=== PATIENT | male | born 1965 | race African-American/Black ===

== ENCOUNTER 2017-06-12 06:45 | Emergency (ER) | payer MEDICAID ==
[~2017-06-12] VITALS: Ht 172.7 cm; Wt 77.5 kg
[~2017-06-12 06:45] MED LIST: ALBU18HF2 IH; ASPI-1159 PO; BENA20TA3 PO; CARVEDILOL PO; LASIX PO; PROAIR INH
[2017-06-12] MEDS ORDERED: AZITHROMYCIN 500 MG TABLET PO ONE (10:45)
[2017-06-12] MEDS ORDERED: CEFTRIAXONE SODIUM 250 MG/VIAL IM ONE (10:45)
[2017-06-12 10:47] VITALS: BP 111/67
[2017-06-12 11:07] LABS: CLARITY URINE TURBID (CLEAR); COLOR URINE YELLOW (YELLOW); GLUCOSE URINE NEGATIVE (NEGATIVE); KETONES URINE NEGATIVE (NEGATIVE); LEUKOCYTE ESTERASE URINE 3+ (NEGATIVE); NITRITE URINE NEGATIVE (NEGATIVE); OCCULT BLOOD URINE 1+ (NEGATIVE); PH URINE >=9.0 (4.5-8.0); PROTEIN URINE 2+ (NEGATIVE); SPECIFIC GRAVITY URINE 1.011 (1.005-1.030); UROBILINOGEN URINE 0.2 E.U./dL (0.2-1.0)
== END 2017-06-12 11:48 | disposition home or self-care (01) ==
LOC: ER 09:20
DX: N34.2 Other urethritis (principal); I11.0 Hypertensive heart disease with heart failure; I50.9 Heart failure, unspecified; J45.909 Unspecified asthma, uncomplicated; F12.90 Cannabis use, unspecified, uncomplicated; Z79.82 Long term (current) use of aspirin
CPT/HCPCS: 81001; 87086; 96372; 99284; J0696; Z7610

== ENCOUNTER 2018-02-11 03:35 | Inpatient (IN) | payer MEDICAID ==
[~2018-02-11] VITALS: Ht 172.7 cm; Wt 76.7 kg
[2018-02-11] MEDS ORDERED: ALBUTEROL (0.083%) 2.5MG/3ML NEB HHN STA (03:42)
[2018-02-11] MEDS ORDERED: METHYLPREDNISOLONE SOD SUCC 125 MG/2 ML VIAL IV STA (03:42)
[2018-02-11] MEDS ORDERED: IPRATROPIUM BROMIDE (0.02%) 0.5MG/2.5ML NEB HHN STA (03:42)
[2018-02-11] MEDS ORDERED: SODIUM CHLORIDE 0.9% 1,000 ML IV ONE (03:42)
[2018-02-11] MEDS ORDERED: NITROGLYCERIN OINT 1GM/INCH UDPKT TD ONE (03:45)
[2018-02-11] MEDS ORDERED: MAGNESIUM 2 G PREMIX 50 ML IV ONE (03:45)
[2018-02-11] MEDS ORDERED: AZITHROMYCIN 500 MG in DEXT 5% WATER 250 ML IV ONE (03:45)
[2018-02-11] MEDS ORDERED: CEFTRIAXONE 1 G PREMIX 50 ML IV ONE (03:45)
[2018-02-11] MEDS ORDERED: ASPIRIN 81MG TABLET PO ONE (03:45)
[2018-02-11 04:14] LABS: HEMATOCRIT. 39.8 % (42.0-52.0); HEMOGLOBIN. 13.1 g/dL (14.0-18.0); MEAN CORPUSCULAR HEMOGLOBIN 27.6 pg (28.0-32.0); MEAN CORPUSCULAR VOLUME 83.7 fL (80.0-94.0); MEAN PLATELET VOLUME 8.8 fl (7.4-10.4); PLATELET 250 x1000/uL (130-400); RED BLOOD CELL COUNT 4.75 mill/uL (4.7-6.1); RED CELL DISTRIBUTION WIDTH 16.2 % (11.6-14.6)
[2018-02-11 04:21] LABS: CHLORIDE 109 mEq/L (98-107); INR 1.2; PROTHROMBIN TIME 12.4 sec (9.4-11.6)
[2018-02-11 04:25] LABS: ETHANOL BLOOD < 10 mg/dL
[2018-02-11 04:41] LABS: PLATELET ESTIMATE NORMAL
[2018-02-11] MEDS ORDERED: DIPHENHYDRAMINE 50MG/ML VIAL IV ONE (05:15)
[2018-02-11] MEDS ORDERED: MORPHINE SULFATE 2 MG/ML CPJ (NOT FOR IM USE) IV STA (05:15)
[2018-02-11 05:44] LABS: CLARITY URINE CLEAR (CLEAR); COLOR URINE YELLOW (YELLOW); KETONES URINE NEGATIVE (NEGATIVE); LEUKOCYTE ESTERASE URINE 1+ (NEGATIVE); NITRITE URINE NEGATIVE (NEGATIVE); OCCULT BLOOD URINE NEGATIVE (NEGATIVE); PH URINE 5.5 (4.5-8.0); PROTEIN URINE TRACE (NEGATIVE); SPECIFIC GRAVITY URINE 1.017 (1.005-1.030); UROBILINOGEN URINE 0.2 E.U./dL (0.2-1.0)
[2018-02-11 06:23] LABS: *BENZODIAZEPINES SCREEN URINE NEGATIVE (NEGATIVE); *COCAINE SCREEN URINE PRESUMTIVE POSITIVE (NEGATIVE); METHADONE URINE SCREEN NEGATIVE (NEGATIVE)
[2018-02-11 06:24] LABS: *AMPHETAMINES SCREEN URINE NEGATIVE (NEGATIVE); *BARBITURATES SCREEN URINE NEGATIVE (NEGATIVE); CANNABINOID URINE SCREEN PRESUMTIVE POSITIVE (NEGATIVE); OPIATES URINE SCREEN NEGATIVE (NEGATIVE); PHENCYCLIDINE URINE SCREEN NEGATIVE (NEGATIVE)
[2018-02-11 08:00] VITALS: BP 107/68
[2018-02-11 08:55] VITALS: BP 107/68
[2018-02-11] MEDS ORDERED: MAGNESIUM/ALUMINUM HYDROXIDE/SIMETHICONE 30ML UDC PO PRN (09:00)
[2018-02-11] MEDS ORDERED: KETOROLAC 30MG/ML VIAL IV PRN (09:00)
[2018-02-11] MEDS ORDERED: TRAMADOL 50MG TABLET PO PRN (09:00)
[2018-02-11] MEDS ORDERED: IPRATROPIUM/ALBUTEROL 0.5-3(2.5)MG/3ML NEB INH PRN (09:00)
[2018-02-11] MEDS ORDERED: DOCUSATE SODIUM 100MG CAPSULE PO PRN (09:00)
[2018-02-11] MEDS ORDERED: CLONIDINE 0.1MG TABLET PO PRN (09:00)
[2018-02-11] MEDS ORDERED: ONDANSETRON HCL 4MG/2ML VIAL IV PRN (09:00)
[2018-02-11] MEDS ORDERED: ZINC SULFATE 220 MG ( 50 ) CAPSULE PO SCH (09:00)
[2018-02-11] MEDS ORDERED: NA PHOS,M-B/NA PHOS,DI-BA ENEMA 118ML PR PRN (09:00)
[2018-02-11] MEDS ORDERED: GUAIFENESIN 200MG/10ML SUGAR FREE UDC PO PRN (09:00)
[2018-02-11] MEDS ORDERED: ENOXAPARIN 40MG/0.4ML SYR SUBCUT SCH (09:00)
[2018-02-11] MEDS ORDERED: NITROGLYCERIN 0.4MG TABLET SL SL PRN (09:00)
[2018-02-11] MEDS ORDERED: LORAZEPAM 0.5MG TABLET PO PRN (09:00)
[2018-02-11] MEDS ORDERED: ACETAMINOPHEN 325MG TABLET PO PRN (09:00)
[2018-02-11] MEDS ORDERED: DIPHENHYDRAMINE 50MG/ML VIAL IV PRN (09:00)
[2018-02-11] MEDS ORDERED: LEVOFLOXACIN 500MG PREMIX 100 ML IV SCH (10:00)
[2018-02-11 12:00] VITALS: BP 104/61
[2018-02-11] MEDS: DILTIAZEM HCL 60MG TABLET PO SCH ×2 (12:00→18:00)
[2018-02-11 16:00] VITALS: BP 117/74
[2018-02-11] MEDS: ASCORBIC ACID 500 MG TABLET PO SCH ×2 (16:00→21:45)
[2018-02-11] MEDS: FAMOTIDINE 20MG TABLET PO SCH ×2 (16:00→21:45)
[2018-02-11] MEDS: GUAIFENESIN 600MG ER TABLET PO SCH ×2 (16:00→21:45)
[2018-02-11] MEDS: METHYLPREDNISOLONE SOD SUCC 125 MG/2 ML VIAL IV SCH ×2 (16:01→21:43)
[2018-02-11] MEDS: FUROSEMIDE 40MG/4ML VIAL IV SCH ×2 (16:02→21:43)
[2018-02-11] MEDS ORDERED: FLUT1DIS3 INH (16:33)
[2018-02-11 16:52] LABS: *AMPHETAMINES SCREEN URINE NEGATIVE (NEGATIVE); *BARBITURATES SCREEN URINE NEGATIVE (NEGATIVE); *BENZODIAZEPINES SCREEN URINE NEGATIVE (NEGATIVE); *COCAINE SCREEN URINE PRESUMTIVE POSITIVE (NEGATIVE); METHADONE URINE SCREEN NEGATIVE (NEGATIVE); OPIATES URINE SCREEN PRESUMTIVE POSITIVE (NEGATIVE)
[2018-02-11 16:53] LABS: CANNABINOID URINE SCREEN PRESUMTIVE POSITIVE (NEGATIVE); PHENCYCLIDINE URINE SCREEN NEGATIVE (NEGATIVE)
[2018-02-11 17:04] LABS: CREATINE KINASE MB FRACTION 2.5 ng/mL (0.5-3.6)
[2018-02-11 20:00] VITALS: BP 123/85
[2018-02-11] MEDS ORDERED: ZOLPIDEM TARTRATE 5MG TABLET PO PRN (21:00)
[2018-02-12] VITALS: BP_SYST 123; BP_DIAS 78; BP_DIAS 98
[2018-02-12] MEDS: DILTIAZEM HCL 60MG TABLET PO SCH ×2 (00:42→06:53)
[2018-02-12] MEDS: IPRATROPIUM/ALBUTEROL 0.5-3(2.5)MG/3ML NEB HHN SCH ×3 (00:55→08:15)
[2018-02-12 01:21] LABS: CREATINE KINASE MB FRACTION 3.3 ng/mL (0.5-3.6)
[2018-02-12 04:00] VITALS: BP 132/85
[2018-02-12] MEDS: FUROSEMIDE 40MG/4ML VIAL IV SCH (06:25)
[2018-02-12] MEDS: METHYLPREDNISOLONE SOD SUCC 125 MG/2 ML VIAL IV SCH (06:26)
[2018-02-12 08:00] VITALS: BP 119/81
[2018-02-12 09:05] VITALS: BP 119/81
== END 2018-02-12 09:36 | disposition home or self-care (01) | DRG 133 ==
LOC: ER 03:35 → 7WST 04:39 → ENRESERV 05:07
PROVIDERS: ADMIT Internal Medicine; ATTEND Internal Medicine
DX: J96.00 Acute respiratory failure, unspecified whether with hypoxia or hypercapnia (principal); E43 Unspecified severe protein-calorie malnutrition; I50.43 Acute on chronic combined systolic (congestive) and diastolic (congestive) heart failure; J18.9 Pneumonia, unspecified organism; J44.0 Chronic obstructive pulmonary disease with (acute) lower respiratory infection; I11.0 Hypertensive heart disease with heart failure; J44.1 Chronic obstructive pulmonary disease with (acute) exacerbation; J45.901 Unspecified asthma with (acute) exacerbation; F12.10 Cannabis abuse, uncomplicated; F14.10 Cocaine abuse, uncomplicated; Z82.49 Family history of ischemic heart disease and other diseases of the circulatory system; Z82.5 Family history of asthma and other chronic lower respiratory diseases; Z68.25 Body mass index [BMI] 25.0-25.9, adult
CPT/HCPCS: 36415; 71045; 80053; 80305; 81003; 82550; 82553; 83036; 83605; 83690; 83880; 84484; 85025; 85610; 87040; 87086; 87804; 93005; 93306; 93970; 96365; 96366; 96367; 96375; 99285; G0482; J0456; J1200; J1650; J1940; J1956; J2270; J2930; J3475; J7030; J7050; J7060; J7611; J7620

== ENCOUNTER 2018-05-10 22:58 | Inpatient (IN) | payer MEDICAID ==
[~2018-05-10] VITALS: Ht 185.4 cm; Wt 74.8 kg
[~2018-05-10 22:58] MED LIST changes: +AMLO10TA80 PO; +BENA20TA10 PO; -BENA20TA3 PO; +CARV3.1242 PO; -CARVEDILOL PO; +FLUT1DIS3 INH; +FURO-151 PO; -LASIX PO; +METO25TA6 PO
[2018-05-10] MEDS ORDERED: METHYLPREDNISOLONE SOD SUCC 125 MG/2 ML VIAL IV STA (23:27)
[2018-05-10] MEDS ORDERED: IPRATROPIUM BROMIDE (0.02%) 0.5MG/2.5ML NEB HHN STA (23:27)
[2018-05-10] MEDS ORDERED: FUROSEMIDE 40MG/4ML VIAL IV ONE (23:30)
[2018-05-10] MEDS ORDERED: ALBUTEROL (0.083%) 2.5MG/3ML NEB HHN SCH (23:30)
[2018-05-11 00:57] LABS: BASOPHILS % 0.9 % (0.0-2.0); EOSINOPHILS % 5.4 % (0.0-5.0); HEMATOCRIT. 36.2 % (42.0-52.0); HEMOGLOBIN. 11.8 g/dL (14.0-18.0); MEAN CORPUSCULAR HEMOGLOBIN 27.9 pg (28.0-32.0); MEAN CORPUSCULAR VOLUME 85.4 fL (80.0-94.0); MONOCYTES % 9.7 % (2.0-8.0); PLATELET 257 x1000/uL (130-400); RED BLOOD CELL COUNT 4.23 mill/uL (4.7-6.1); RED CELL DISTRIBUTION WIDTH 16.5 % (11.6-14.6)
[2018-05-11 01:01] LABS: CHLORIDE 119 mEq/L (98-107)
[2018-05-11 01:02] LABS: INR 1.1
[2018-05-11] MEDS ORDERED: POTASSIUM CHLORIDE INJ 40 MEQ in DEXT 5% WATER 250 ML IV NR (03:00)
[2018-05-11] MEDS ORDERED: CALCIUM GLUCONATE 100MG/ML 10ML VIAL IV NR (03:00)
[2018-05-11 05:58] VITALS: BP 125/79
[2018-05-11 06:01] VITALS: BP 125/79
[2018-05-11] MEDS ORDERED: ALBU90AE INH (06:15)
[2018-05-11 08:00] VITALS: BP 134/91
[2018-05-11] MEDS ORDERED: IPRATROPIUM/ALBUTEROL 0.5-3(2.5)MG/3ML NEB INH PRN (09:15)
[2018-05-11] MEDS ORDERED: ONDANSETRON HCL 4MG/2ML VIAL IV PRN (09:15)
[2018-05-11] MEDS ORDERED: POTASSIUM CHLORIDE 20MEQ TABLET SR PO SCH (09:30)
[2018-05-11] MEDS ORDERED: ALBUTEROL 6.7GM HFA INHALER INH PRN (09:30)
[2018-05-11] MEDS ORDERED: FUROSEMIDE 40MG/4ML VIAL IVP SCH (09:30)
[2018-05-11] MEDS ORDERED: POTASSIUM CHLORIDE 20MEQ TABLET SR PO NR (09:30)
[2018-05-11 12:00] VITALS: BP 131/80
[2018-05-11] MEDS: AMLODIPINE 10MG TABLET PO SCH (12:04)
[2018-05-11] MEDS: ASPIRIN 81MG TABLET PO SCH (12:05)
[2018-05-11] MEDS: BENAZEPRIL 20MG TABLET PO SCH (12:11)
[2018-05-11 14:00] VITALS: BP 115/72
[2018-05-11 14:04] LABS: PHOSPHORUS 2.4 mg/dL (2.5-4.9)
[2018-05-11 14:08] LABS: CREATINE KINASE MB FRACTION 3.7 ng/mL (0.5-3.6)
[2018-05-11] MEDS ORDERED: IPRATROPIUM/ALBUTEROL 0.5-3(2.5)MG/3ML NEB HHN PRN (15:00)
[2018-05-11] MEDS: POTASSIUM CHLORIDE 20MEQ TABLET SR PO SCH (16:43)
[2018-05-11] MEDS: FUROSEMIDE 100MG/10ML VIAL IVP SCH (16:47)
[2018-05-11] MEDS: MORPHINE SULFATE 4 MG/ML CPJ (NOT FOR IM USE) IV PRN (19:47)
[2018-05-11 19:59] LABS: CLARITY URINE CLEAR (CLEAR); COLOR URINE YELLOW (YELLOW); KETONES URINE NEGATIVE (NEGATIVE); LEUKOCYTE ESTERASE URINE TRACE (NEGATIVE); NITRITE URINE NEGATIVE (NEGATIVE); OCCULT BLOOD URINE NEGATIVE (NEGATIVE); PH URINE 7.5 (4.5-8.0); PROTEIN URINE NEGATIVE (NEGATIVE); SPECIFIC GRAVITY URINE 1.006 (1.005-1.030); UROBILINOGEN URINE 0.2 E.U./dL (0.2-1.0)
[2018-05-11 20:00] VITALS: BP 119/82
[2018-05-11 20:14] LABS: *AMPHETAMINES SCREEN URINE NEGATIVE (NEGATIVE); *BARBITURATES SCREEN URINE NEGATIVE (NEGATIVE); *BENZODIAZEPINES SCREEN URINE NEGATIVE (NEGATIVE); *COCAINE SCREEN URINE PRESUMTIVE POSITIVE (NEGATIVE); METHADONE URINE SCREEN NEGATIVE (NEGATIVE)
[2018-05-11 20:15] LABS: CANNABINOID URINE SCREEN PRESUMTIVE POSITIVE (NEGATIVE); OPIATES URINE SCREEN NEGATIVE (NEGATIVE); PHENCYCLIDINE URINE SCREEN NEGATIVE (NEGATIVE)
[2018-05-11] MEDS: IPRATROPIUM/ALBUTEROL 0.5-3(2.5)MG/3ML NEB HHN SCH (20:34)
[2018-05-11] MEDS: BUDESONIDE 0.5MG/2ML NEB HHN SCH (20:35)
[2018-05-12] VITALS: BP 121/84
[2018-05-12] MEDS: IPRATROPIUM/ALBUTEROL 0.5-3(2.5)MG/3ML NEB HHN SCH ×3 (01:44→21:30)
[2018-05-12 04:43] VITALS: BP 108/64
[2018-05-12] MEDS: FUROSEMIDE 100MG/10ML VIAL IVP SCH (06:27)
[2018-05-12 07:28] LABS: BASOPHILS % 0.3 % (0.0-2.0); EOSINOPHILS % 0.4 % (0.0-5.0); HEMATOCRIT. 43.2 % (42.0-52.0); HEMOGLOBIN. 14.1 g/dL (14.0-18.0); LYMPHOCYTES % 10.9 % (20.0-50.0); MEAN CORPUSCULAR HEMOGLOBIN 27.7 pg (28.0-32.0); MEAN CORPUSCULAR VOLUME 85.2 fL (80.0-94.0); MEAN PLATELET VOLUME 8.9 fl (7.4-10.4); MONOCYTES % 7.7 % (2.0-8.0); NEUTROPHILS % 80.7 % (40.0-76.0); PLATELET 357 x1000/uL (130-400); RED BLOOD CELL COUNT 5.06 mill/uL (4.7-6.1); RED CELL DISTRIBUTION WIDTH 16.9 % (11.6-14.6)
[2018-05-12 07:44] LABS: FOLIC ACID (FOLATE) SERUM 14.4 ng/mL (>5.38)
[2018-05-12 08:00] VITALS: BP 122/84
[2018-05-12] MEDS: BUDESONIDE 0.5MG/2ML NEB HHN SCH ×2 (08:43→21:30)
[2018-05-12] MEDS: POTASSIUM CHLORIDE 20MEQ TABLET SR PO SCH (08:49)
[2018-05-12] MEDS: AMLODIPINE 10MG TABLET PO SCH (08:49)
[2018-05-12] MEDS: ASPIRIN 81MG TABLET PO SCH (08:49)
[2018-05-12] MEDS: BENAZEPRIL 20MG TABLET PO SCH (08:49)
[2018-05-12] MEDS: MORPHINE SULFATE 4 MG/ML CPJ (NOT FOR IM USE) IV PRN (10:40)
[2018-05-12 12:26] VITALS: BP 100/68
[2018-05-12 15:57] VITALS: BP 106/72
[2018-05-12] MEDS: FUROSEMIDE 40MG/4ML VIAL IVP SCH (16:32)
[2018-05-12 20:00] VITALS: BP 101/72
[2018-05-13 00:10] VITALS: BP 105/68
[2018-05-13] MEDS: MORPHINE SULFATE 4 MG/ML CPJ (NOT FOR IM USE) IV PRN (02:02)
[2018-05-13] MEDS: IPRATROPIUM/ALBUTEROL 0.5-3(2.5)MG/3ML NEB HHN SCH ×2 (03:14→08:26)
[2018-05-13 04:16] VITALS: BP 103/66
[2018-05-13 06:14] LABS: BASOPHILS % 1.1 % (0.0-2.0); EOSINOPHILS % 2.2 % (0.0-5.0); HEMATOCRIT. 45.8 % (42.0-52.0); HEMOGLOBIN. 15.1 g/dL (14.0-18.0); MEAN CORPUSCULAR VOLUME 84.8 fL (80.0-94.0); MEAN PLATELET VOLUME 8.8 fl (7.4-10.4); MONOCYTES % 10.1 % (2.0-8.0); NEUTROPHILS % 61.6 % (40.0-76.0); PLATELET 402 x1000/uL (130-400); RED CELL DISTRIBUTION WIDTH 16.8 % (11.6-14.6)
[2018-05-13 08:00] VITALS: BP 122/73
[2018-05-13] MEDS: BUDESONIDE 0.5MG/2ML NEB HHN SCH (08:25)
[2018-05-13] MEDS ORDERED: BENAZEPRIL 10MG TABLET PO SCH (09:00)
[2018-05-13] MEDS: AMLODIPINE 10MG TABLET PO SCH (09:00)
[2018-05-13] MEDS ORDERED: POTASSIUM CHLORIDE 20MEQ TABLET SR PO SCH (09:00)
[2018-05-13] MEDS: ASPIRIN 81MG TABLET PO SCH (10:51)
[2018-05-13] MEDS: FUROSEMIDE 40MG/4ML VIAL IVP SCH (10:51)
[2018-05-13 12:00] VITALS: BP 110/76
[2018-05-13] MEDS ORDERED: LOT10 PO (12:36)
[2018-05-13 13:56] VITALS: BP 110/76
== END 2018-05-13 14:35 | disposition home or self-care (01) | DRG 194 ==
LOC: ER 22:58 → 7WST 05-11 02:43 → EDBEDREQ 05-11 02:45 → ENRESERV 05-11 03:46
PROVIDERS: ADMIT Internal Medicine; ATTEND Internal Medicine
DX: I13.0 Hypertensive heart and chronic kidney disease with heart failure and stage 1 through stage 4 chronic kidney disease, or unspecified chronic kidney disease (principal); J96.00 Acute respiratory failure, unspecified whether with hypoxia or hypercapnia; E43 Unspecified severe protein-calorie malnutrition; I50.23 Acute on chronic systolic (congestive) heart failure; J44.1 Chronic obstructive pulmonary disease with (acute) exacerbation; E87.6 Hypokalemia; E83.51 Hypocalcemia; E88.09 Other disorders of plasma-protein metabolism, not elsewhere classified; N18.9 Chronic kidney disease, unspecified; D64.9 Anemia, unspecified; F12.90 Cannabis use, unspecified, uncomplicated; I08.0 Rheumatic disorders of both mitral and aortic valves; I42.0 Dilated cardiomyopathy; F14.90 Cocaine use, unspecified, uncomplicated; Z87.891 Personal history of nicotine dependence; Z79.899 Other long term (current) drug therapy; Z79.82 Long term (current) use of aspirin; Z68.21 Body mass index [BMI] 21.0-21.9, adult; Z71.6 Tobacco abuse counseling; Z71.51 Drug abuse counseling and surveillance of drug abuser
CPT/HCPCS: 36415; 71045; 80048; 80053; 80305; 81003; 82550; 82553; 82607; 82728; 82746; 83540; 83550; 83605; 83735; 83880; 84100; 84481; 84484; 85025; 85610; 85730; 87040; 93005; 93970; 94640; 96365; 96375; 99285; J0610; J1940; J2270; J2930; J3480; J7040; J7060; J7611; J7620; J7626

== ENCOUNTER 2018-07-10 11:19 | Emergency (ER) | payer MEDICAID ==
[~2018-07-10] VITALS: Ht 172.7 cm; Wt 82.0 kg
[~2018-07-10 11:19] MED LIST changes: +ALBU90AE INH; -BENA20TA10 PO; +LOT10 PO; -METO25TA6 PO; -PROAIR INH
[2018-07-10 15:52] VITALS: BP 141/89
== END 2018-07-10 15:52 | disposition home or self-care (01) ==
LOC: ER 11:19
DX: Z76.0 Encounter for issue of repeat prescription (principal); I11.0 Hypertensive heart disease with heart failure; I50.9 Heart failure, unspecified; J44.9 Chronic obstructive pulmonary disease, unspecified; Z79.82 Long term (current) use of aspirin
CPT/HCPCS: 93005; 99283; Z7610

== ENCOUNTER 2018-09-30 05:28 | Emergency (ER) | payer MEDICAID ==
[~2018-09-30] VITALS: Ht 195.6 cm; Wt 102.0 kg
[2018-09-30] MEDS ORDERED: IBUPROFEN 600MG TABLET PO STA (07:40)
[2018-09-30] MEDS ORDERED: SODIUM CHLORIDE 0.9% 1,000 ML IV ONE (07:40)
[2018-09-30 09:07] LABS: CHLORIDE 105 mEq/L (98-107); INR 1.2; PROTHROMBIN TIME 11.6 sec (9.1-11.1)
[2018-09-30 09:31] LABS: HEMATOCRIT. 38.1 % (42.0-52.0); HEMOGLOBIN. 12.5 g/dL (14.0-18.0); MEAN CORPUSCULAR HEMOGLOBIN 27.7 pg (28.0-32.0); MEAN CORPUSCULAR VOLUME 84.4 fL (80.0-94.0); MEAN PLATELET VOLUME 8.9 fl (7.4-10.4); PLATELET 262 x1000/uL (130-400); RED BLOOD CELL COUNT 4.52 mill/uL (4.7-6.1); RED CELL DISTRIBUTION WIDTH 14.8 % (11.6-14.6)
[2018-09-30 11:14] LABS: CLARITY URINE TURBID (CLEAR); COLOR URINE YELLOW (YELLOW); KETONES URINE NEGATIVE (NEGATIVE); LEUKOCYTE ESTERASE URINE 3+ (NEGATIVE); NITRITE URINE NEGATIVE (NEGATIVE); OCCULT BLOOD URINE 3+ (NEGATIVE); PH URINE 6.5 (4.5-8.0); PROTEIN URINE 2+ (NEGATIVE); SPECIFIC GRAVITY URINE 1.009 (1.005-1.030)
[2018-09-30 12:19] LABS: PLATELET ESTIMATE NORMAL
[2018-09-30 14:00] VITALS: BP 124/83
== END 2018-09-30 14:00 | disposition home or self-care (01) ==
LOC: ER 05:28
DX: J44.1 Chronic obstructive pulmonary disease with (acute) exacerbation (principal); R09.1 Pleurisy; R07.89 Other chest pain; I50.9 Heart failure, unspecified; N18.9 Chronic kidney disease, unspecified; I51.7 Cardiomegaly; Z79.82 Long term (current) use of aspirin
CPT/HCPCS: 36415; 71045; 80053; 81003; 83605; 83880; 84484; 85025; 85610; 87040; 87077; 87086; 87186; 87804; 99284; J7030

== ENCOUNTER 2018-11-09 10:34 | Inpatient (IN) | payer MEDICAID ==
[~2018-11-09] VITALS: Ht 172.7 cm; Wt 74.8 kg
[2018-11-09] MEDS ORDERED: ALBUTEROL (0.083%) 2.5MG/3ML NEB HHN STA (10:56)
[2018-11-09] MEDS ORDERED: IPRATROPIUM BROMIDE (0.02%) 0.5MG/2.5ML NEB HHN STA (10:56)
[2018-11-09] MEDS ORDERED: AMLODIPINE 5MG TABLET PO ONE (11:00)
[2018-11-09] MEDS ORDERED: BENAZEPRIL 10MG TABLET PO ONE (11:00)
[2018-11-09] MEDS ORDERED: FUROSEMIDE 40MG/4ML VIAL IVP ONE (11:00)
[2018-11-09 11:36] LABS: EOSINOPHILS % 1.5 % (0.0-5.0); HEMATOCRIT. 39.2 % (42.0-52.0); HEMOGLOBIN. 12.7 g/dL (14.0-18.0); LYMPHOCYTES % 12.4 % (20.0-50.0); MEAN CORPUSCULAR HEMOGLOBIN 27.4 pg (28.0-32.0); MEAN CORPUSCULAR VOLUME 84.3 fL (80.0-94.0); MEAN PLATELET VOLUME 8.7 fl (7.4-10.4); MONOCYTES % 7.2 % (2.0-8.0); NEUTROPHILS % 77.9 % (40.0-76.0); PLATELET 329 x1000/uL (130-400); RED BLOOD CELL COUNT 4.64 mill/uL (4.7-6.1); RED CELL DISTRIBUTION WIDTH 16.1 % (11.6-14.6)
[2018-11-09 11:43] LABS: CHLORIDE 111 mEq/L (98-107)
[2018-11-09 11:45] LABS: INR 1.1; PARTIAL THROMBOPLASTIN TIME 28.4 sec (23.4-31.0)
[2018-11-09 11:46] LABS: ETHANOL BLOOD < 10 mg/dL
[2018-11-09 12:43] LABS: *AMPHETAMINES SCREEN URINE NEGATIVE (NEGATIVE); *BARBITURATES SCREEN URINE NEGATIVE (NEGATIVE); *BENZODIAZEPINES SCREEN URINE NEGATIVE (NEGATIVE); *COCAINE SCREEN URINE PRESUMTIVE POSITIVE (NEGATIVE); METHADONE URINE SCREEN NEGATIVE (NEGATIVE); PHENCYCLIDINE URINE SCREEN NEGATIVE (NEGATIVE)
[2018-11-09 12:45] LABS: CANNABINOID URINE SCREEN PRESUMTIVE POSITIVE (NEGATIVE)
[2018-11-09 12:49] LABS: OPIATES URINE SCREEN NEGATIVE (NEGATIVE)
[2018-11-09] MEDS ORDERED: DOCUSATE SODIUM 100MG CAPSULE PO PRN (14:30)
[2018-11-09] MEDS ORDERED: CLONIDINE 0.1MG TABLET PO PRN (14:30)
[2018-11-09] MEDS ORDERED: ACETAMINOPHEN 325MG TABLET PO PRN (14:30)
[2018-11-09] MEDS ORDERED: HYDROCODONE/ACETAMINOPHEN 5/325MG TABLET PO PRN (14:30)
[2018-11-09] MEDS ORDERED: MAGNESIUM/ALUMINUM HYDROXIDE/SIMETHICONE 30ML UDC PO PRN (14:30)
[2018-11-09] MEDS ORDERED: GUAIFENESIN 200MG/10ML SUGAR FREE UDC PO PRN (14:30)
[2018-11-09 18:15] VITALS: BP 155/100
[2018-11-09] MEDS: AMLODIPINE 10MG TABLET PO SCH (18:55)
[2018-11-09] MEDS: CARVEDILOL 3.125 MG TABLET PO SCH (18:56)
[2018-11-09 20:00] VITALS: BP 160/101
[2018-11-09] MEDS ORDERED: ENOXAPARIN 40MG/0.4ML SYR SUBCUT SCH (20:00)
[2018-11-09] MEDS: IPRATROPIUM/ALBUTEROL 0.5-3(2.5)MG/3ML NEB INH PRN (20:47)
[2018-11-09] MEDS: NITROGLYCERIN OINT 1GM/INCH UDPKT TD SCH (21:09)
[2018-11-10] VITALS: BP 112/70
[2018-11-10 04:00] VITALS: BP 129/89
[2018-11-10] MEDS: IPRATROPIUM/ALBUTEROL 0.5-3(2.5)MG/3ML NEB INH PRN (04:51)
[2018-11-10] MEDS: NITROGLYCERIN OINT 1GM/INCH UDPKT TD SCH ×2 (06:20→15:10)
[2018-11-10 06:41] LABS: CHLORIDE 107 mEq/L (98-107)
[2018-11-10 06:49] LABS: HEMATOCRIT. 38.7 % (42.0-52.0); HEMOGLOBIN. 12.4 g/dL (14.0-18.0); MEAN CORPUSCULAR HEMOGLOBIN 26.9 pg (28.0-32.0); MEAN CORPUSCULAR VOLUME 83.6 fL (80.0-94.0); MEAN PLATELET VOLUME 9.2 fl (7.4-10.4); PLATELET 311 x1000/uL (130-400); RED BLOOD CELL COUNT 4.63 mill/uL (4.7-6.1)
[2018-11-10 07:04] LABS: HDL CHOLESTEROL 32 mg/dL (40-59); LDL CHOLESTEROL 70 mg/dL (5-100)
[2018-11-10 08:00] VITALS: BP 122/82
[2018-11-10] MEDS: CARVEDILOL 3.125 MG TABLET PO SCH ×2 (08:28→17:00)
[2018-11-10] MEDS: AMLODIPINE 10MG TABLET PO SCH (08:28)
[2018-11-10] MEDS ORDERED: FUROSEMIDE 40MG/4ML VIAL IV SCH (09:00)
[2018-11-10] MEDS ORDERED: ASPIRIN 81MG EC TABLET PO SCH (09:00)
[2018-11-10 12:00] VITALS: BP 106/58
[2018-11-10 13:39] LABS: PLATELET ESTIMATE NORMAL
[2018-11-10 16:00] VITALS: BP 116/78
[2018-11-10 16:45] VITALS: BP 116/78
== END 2018-11-10 18:59 | disposition home or self-care (01) | DRG 194 ==
LOC: ER 10:34 → 7WST 13:28 → EDBEDREQ 13:31 → ENRESERV 15:17
PROVIDERS: ADMIT Hospitalist; ATTEND Hospitalist
DX: I11.0 Hypertensive heart disease with heart failure (principal); E83.51 Hypocalcemia; E87.8 Other disorders of electrolyte and fluid balance, not elsewhere classified; F14.10 Cocaine abuse, uncomplicated; J44.9 Chronic obstructive pulmonary disease, unspecified; I50.23 Acute on chronic systolic (congestive) heart failure; Z82.49 Family history of ischemic heart disease and other diseases of the circulatory system; Z91.14 Patient's other noncompliance with medication regimen
CPT/HCPCS: 36415; 71045; 80061; 80305; 83880; 84484; 93005; 93306; 93970; 94640; 96374; 99285; J1650; J1940; J7611; J7620

== ENCOUNTER 2018-11-11 15:41 | Inpatient (IN) | payer MEDICAID ==
[~2018-11-11] VITALS: Ht 172.7 cm; Wt 74.8 kg
[2018-11-11 19:11] LABS: CHLORIDE 99 mEq/L (98-107); MEAN CORPUSCULAR VOLUME 83.4 fL (80.0-94.0); MEAN PLATELET VOLUME 9.1 fl (7.4-10.4); PLATELET 326 x1000/uL (130-400)
[2018-11-11 19:12] LABS: HEMATOCRIT. 44.2 % (42.0-52.0); HEMOGLOBIN. 14.3 g/dL (14.0-18.0)
[2018-11-11 19:13] LABS: INR 1.1; PARTIAL THROMBOPLASTIN TIME 32.5 sec (23.4-31.0); PROTHROMBIN TIME 11.5 sec (9.1-11.1)
[2018-11-11 19:14] LABS: CLARITY URINE TURBID (CLEAR); COLOR URINE YELLOW (YELLOW); KETONES URINE NEGATIVE (NEGATIVE); LEUKOCYTE ESTERASE URINE 3+ (NEGATIVE); NITRITE URINE NEGATIVE (NEGATIVE); OCCULT BLOOD URINE 2+ (NEGATIVE); PROTEIN URINE 1+ (NEGATIVE); SPECIFIC GRAVITY URINE 1.014 (1.005-1.030)
[2018-11-11 19:15] LABS: ETHANOL BLOOD < 10 mg/dL
[2018-11-11] MEDS ORDERED: KETOROLAC 30MG/ML VIAL IV ONE (19:30)
[2018-11-11] MEDS ORDERED: FAMOTIDINE 20MG/2ML VIAL IV ONE (19:30)
[2018-11-11] MEDS ORDERED: ACETAMINOPHEN 325MG TABLET PO STA (19:43)
[2018-11-11] MEDS ORDERED: SODIUM CHLORIDE 0.9% 1000ML BAG (SEPSIS BOLUS) IV ONE (19:45)
[2018-11-11] MEDS ORDERED: CEFTRIAXONE 1 G PREMIX 50 ML IV ONE (19:45)
[2018-11-11] MEDS ORDERED: LEVOFLOXACIN 500MG PREMIX 100 ML IV ONE (19:45)
[2018-11-11] MEDS ORDERED: FUROSEMIDE 20MG/2ML VIAL IVP ONE (19:45)
[2018-11-11 19:52] LABS: *AMPHETAMINES SCREEN URINE NEGATIVE (NEGATIVE); *BARBITURATES SCREEN URINE NEGATIVE (NEGATIVE); *BENZODIAZEPINES SCREEN URINE NEGATIVE (NEGATIVE); *COCAINE SCREEN URINE PRESUMTIVE POSITIVE (NEGATIVE)
[2018-11-11 19:53] LABS: CANNABINOID URINE SCREEN PRESUMTIVE POSITIVE (NEGATIVE); METHADONE URINE SCREEN NEGATIVE (NEGATIVE); OPIATES URINE SCREEN NEGATIVE (NEGATIVE); PHENCYCLIDINE URINE SCREEN NEGATIVE (NEGATIVE)
[2018-11-11 22:21] LABS: PLATELET ESTIMATE NORMAL
[2018-11-11] MEDS ORDERED: GUAIFENESIN 200MG/10ML SUGAR FREE UDC PO PRN (22:30)
[2018-11-11] MEDS ORDERED: LEVOFLOXACIN 500MG PREMIX 100 ML IV SCH (22:30)
[2018-11-11] MEDS ORDERED: CLONIDINE 0.1MG TABLET PO PRN (22:30)
[2018-11-11] MEDS ORDERED: IPRATROPIUM/ALBUTEROL 0.5-3(2.5)MG/3ML NEB INH PRN (22:30)
[2018-11-11] MEDS ORDERED: ONDANSETRON HCL 4MG/2ML INJ IV PRN (22:30)
[2018-11-11] MEDS ORDERED: KETOROLAC 30MG/ML VIAL IV PRN (22:30)
[2018-11-12] MEDS: ACETAMINOPHEN 325MG TABLET PO PRN ×3 (05:37→23:34)
[2018-11-12 05:49] LABS: HEMATOCRIT. 40.8 % (42.0-52.0); HEMOGLOBIN. 12.9 g/dL (14.0-18.0); MEAN CORPUSCULAR VOLUME 85.3 fL (80.0-94.0); MEAN PLATELET VOLUME 8.9 fl (7.4-10.4); PLATELET 299 x1000/uL (130-400); RED BLOOD CELL COUNT 4.78 mill/uL (4.7-6.1); RED CELL DISTRIBUTION WIDTH 15.9 % (11.6-14.6)
[2018-11-12 05:54] LABS: PHOSPHORUS 3.8 mg/dL (2.5-4.9)
[2018-11-12 07:32] LABS: PLATELET ESTIMATE NORMAL
[2018-11-12] MEDS: AMLODIPINE 10MG TABLET PO SCH (09:00)
[2018-11-12] MEDS: NITROGLYCERIN OINT 1GM/INCH UDPKT TD SCH ×3 (09:00→21:18)
[2018-11-12 09:09] VITALS: BP 99/67
[2018-11-12] MEDS: FUROSEMIDE 40MG/4ML VIAL IVP SCH (10:16)
[2018-11-12] MEDS: ASPIRIN 81MG EC TABLET PO SCH (10:16)
[2018-11-12] MEDS: GUAIFENESIN 600MG ER TABLET PO SCH ×2 (10:17→21:09)
[2018-11-12 11:09] VITALS: BP 99/67
[2018-11-12 12:00] VITALS: BP 156/56
[2018-11-12] MEDS: IPRATROPIUM/ALBUTEROL 0.5-3(2.5)MG/3ML NEB HHN SCH ×2 (12:28→20:45)
[2018-11-12] MEDS: BUDESONIDE 0.5MG/2ML NEB HHN SCH (12:28)
[2018-11-12] MEDS: SODIUM CHLORIDE 0.9% INJ 3ML FLUSH IVF SCH ×2 (13:47→21:34)
[2018-11-12 16:00] VITALS: BP 96/56
[2018-11-12] MEDS ORDERED: VANCOMYCIN 1250MG in DEXTROSE 5% WATER 250ML IV NR (17:00)
[2018-11-12 20:00] VITALS: BP 108/72
[2018-11-12] MEDS: PIPERACILLIN/TAZOBACTAM 3.375 G in DEXT 5% WATER 100 ML IV SCH (21:30)
[2018-11-12] MEDS ORDERED: LEVOFLOXACIN 250MG PREMIX 50 ML IV SCH (22:00)
[2018-11-13] VITALS (7 sets, daily range): BP systolic 100–135; BP diastolic 63–74
[2018-11-13] MEDS: BUDESONIDE 0.5MG/2ML NEB HHN SCH ×2 (01:50→08:20)
[2018-11-13] MEDS: IPRATROPIUM/ALBUTEROL 0.5-3(2.5)MG/3ML NEB HHN SCH ×3 (01:56→13:36)
[2018-11-13 06:09] LABS: HEMATOCRIT. 35.7 % (42.0-52.0); HEMOGLOBIN. 11.5 g/dL (14.0-18.0); MEAN CORPUSCULAR HEMOGLOBIN 26.9 pg (28.0-32.0); MEAN CORPUSCULAR VOLUME 83.8 fL (80.0-94.0); MEAN PLATELET VOLUME 9.4 fl (7.4-10.4); PLATELET 259 x1000/uL (130-400); RED BLOOD CELL COUNT 4.26 mill/uL (4.7-6.1); RED CELL DISTRIBUTION WIDTH 15.8 % (11.6-14.6)
[2018-11-13] MEDS: PIPERACILLIN/TAZOBACTAM 3.375 G in DEXT 5% WATER 100 ML IV SCH (06:22)
[2018-11-13] MEDS: SODIUM CHLORIDE 0.9% INJ 3ML FLUSH IVF SCH ×2 (06:23→14:12)
[2018-11-13] MEDS: NITROGLYCERIN OINT 1GM/INCH UDPKT TD SCH ×2 (06:25→14:35)
[2018-11-13] MEDS: ASPIRIN 81MG EC TABLET PO SCH (08:09)
[2018-11-13] MEDS: GUAIFENESIN 600MG ER TABLET PO SCH (08:09)
[2018-11-13] MEDS: AMLODIPINE 10MG TABLET PO SCH (08:10)
[2018-11-13] MEDS: FUROSEMIDE 40MG/4ML VIAL IVP SCH (08:10)
[2018-11-13] MEDS ORDERED: ENOXAPARIN 40MG/0.4ML SYR SUBCUT SCH (09:00)
[2018-11-13] MEDS ORDERED: VANCOMYCIN 1 G PREMIX 200 ML IV SCH (11:00)
[2018-11-13 11:04] LABS: PLATELET ESTIMATE NORMAL
[2018-11-13] MEDS ORDERED: MEROPENEM 1,000 MG in SODIUM CHLORIDE 0.9% 100 ML IV SCH (12:00)
[2018-11-13] MEDS ORDERED: CEFEPIME 2,000 MG in DEXT 5% WATER 100 ML IV SCH (12:00)
[2018-11-13] MEDS ORDERED: PIPERACILLIN/TAZ 3.375G PREMIX 50 ML IV SCH (22:00)
== END 2018-11-13 19:00 | disposition home or self-care (01) | DRG 720 ==
LOC: ER 15:41 → EDBEDREQSVC 19:46 → EDBEDREQ 19:46 → EDBEDREQTM 19:46 → EDBEDREQ 21:13 → EDBEDREQTM 21:28 → ENRESERV 11-12 07:49 → 8WST 11-12 07:49
PROVIDERS: ADMIT Internal Medicine; ATTEND Internal Medicine
DX: A41.9 Sepsis, unspecified organism (principal); I50.23 Acute on chronic systolic (congestive) heart failure; E44.1 Mild protein-calorie malnutrition; E87.1 Hypo-osmolality and hyponatremia; J44.1 Chronic obstructive pulmonary disease with (acute) exacerbation; I13.0 Hypertensive heart and chronic kidney disease with heart failure and stage 1 through stage 4 chronic kidney disease, or unspecified chronic kidney disease; D64.9 Anemia, unspecified; F14.10 Cocaine abuse, uncomplicated; K43.9 Ventral hernia without obstruction or gangrene; N18.9 Chronic kidney disease, unspecified; N32.89 Other specified disorders of bladder; N39.0 Urinary tract infection, site not specified; Z82.49 Family history of ischemic heart disease and other diseases of the circulatory system; Z83.3 Family history of diabetes mellitus
CPT/HCPCS: 36415; 71045; 74176; 76705; 80048; 80305; 82550; 83605; 83735; 83880; 84100; 84145; 84443; 84484; 85651; 86140; 87077; 87186; 87804; 93005; 96374; 99285; J0692; J0696; J1650; J1885; J1940; J1956; J2185; J2543; J3370; J3490; J7030; J7040; J7050; J7060; J7620; J7626

== ENCOUNTER 2019-01-16 03:57 | Inpatient (IN) | payer MEDICAID ==
[~2019-01-16] VITALS: Ht 172.7 cm; Wt 75.8 kg
[~2019-01-16 03:57] MED LIST changes: -ALBU90AE INH; -FLUT1DIS3 INH
[2019-01-16] MEDS ORDERED: METHYLPREDNISOLONE SOD SUCC 125 MG/2 ML VIAL IV STA (06:21)
[2019-01-16] MEDS ORDERED: ALBUTEROL (0.083%) 2.5MG/3ML NEB HHN STA (06:21)
[2019-01-16] MEDS ORDERED: IPRATROPIUM BROMIDE (0.02%) 0.5MG/2.5ML NEB HHN STA (06:21)
[2019-01-16] MEDS ORDERED: CEFTRIAXONE SODIUM 250 MG/VIAL IM ONE (06:30)
[2019-01-16] MEDS ORDERED: AZITHROMYCIN 500 MG TABLET PO ONE (06:30)
[2019-01-16] MEDS ORDERED: KETOROLAC 30MG/ML VIAL IV ONE (06:30)
[2019-01-16] MEDS ORDERED: ALBUTEROL (0.5%) 2.5MG/0.5ML NEB HHN ONE (06:33)
[2019-01-16 06:35] LABS: BASOPHILS % 0.5 % (0.0-2.0); EOSINOPHILS % 3.3 % (0.0-5.0); HEMATOCRIT. 37.1 % (42.0-52.0); LYMPHOCYTES % 9.5 % (20.0-50.0); MEAN CORPUSCULAR HEMOGLOBIN 26.6 pg (28.0-32.0); MEAN CORPUSCULAR VOLUME 82.3 fL (80.0-94.0); MEAN PLATELET VOLUME 8.9 fl (7.4-10.4); MONOCYTES % 7.8 % (2.0-8.0); NEUTROPHILS % 78.9 % (40.0-76.0); PLATELET 299 x1000/uL (130-400); RED BLOOD CELL COUNT 4.51 mill/uL (4.7-6.1); RED CELL DISTRIBUTION WIDTH 16.4 % (11.6-14.6)
[2019-01-16 06:36] LABS: CHLORIDE 109 mEq/L (98-107)
[2019-01-16] MEDS ORDERED: STERILE WATER FOR INJECTION 10ML VIAL ONE (06:37)
[2019-01-16 06:40] LABS: D-DIMER 0.37 mg/L FEU (<0.50); INR 1.1; PROTHROMBIN TIME 11.5 sec (9.6-11.0)
[2019-01-16 07:12] LABS: CLARITY URINE TURBID (CLEAR); COLOR URINE YELLOW (YELLOW); KETONES URINE NEGATIVE (NEGATIVE); LEUKOCYTE ESTERASE URINE 3+ (NEGATIVE); NITRITE URINE NEGATIVE (NEGATIVE); OCCULT BLOOD URINE 3+ (NEGATIVE); PROTEIN URINE 2+ (NEGATIVE); SPECIFIC GRAVITY URINE 1.015 (1.005-1.030)
[2019-01-16] MEDS ORDERED: FUROSEMIDE 40MG/4ML VIAL IVP ONE ×2 (07:15→11:30)
[2019-01-16] MEDS ORDERED: ASPIRIN 325MG TABLET PO ONE (07:15)
[2019-01-16] MEDS ORDERED: LEVOFLOXACIN 500MG PREMIX 100 ML IV ONE (08:30)
[2019-01-16 10:00] VITALS: BP 131/81
[2019-01-16] MEDS: FUROSEMIDE 40MG/4ML VIAL IVP SCH ×2 (13:04→17:50)
[2019-01-16] MEDS ORDERED: ACETAMINOPHEN 325MG TABLET PO PRN (13:30)
[2019-01-16] MEDS ORDERED: ONDANSETRON HCL 4MG/2ML INJ IV PRN (13:30)
[2019-01-16] MEDS ORDERED: IPRATROPIUM/ALBUTEROL 0.5-3(2.5)MG/3ML NEB HHN PRN (13:30)
[2019-01-16 14:12] LABS: *AMPHETAMINES SCREEN URINE NEGATIVE (NEGATIVE); *BARBITURATES SCREEN URINE NEGATIVE (NEGATIVE); *BENZODIAZEPINES SCREEN URINE NEGATIVE (NEGATIVE); *COCAINE SCREEN URINE PRESUMTIVE POSITIVE (NEGATIVE)
[2019-01-16 14:13] LABS: CANNABINOID URINE SCREEN PRESUMTIVE POSITIVE (NEGATIVE); METHADONE URINE SCREEN NEGATIVE (NEGATIVE); PHENCYCLIDINE URINE SCREEN NEGATIVE (NEGATIVE)
[2019-01-16 14:14] LABS: OPIATES URINE SCREEN NEGATIVE (NEGATIVE)
[2019-01-16] MEDS: AZITHROMYCIN 500 MG TABLET PO SCH (14:46)
[2019-01-16] MEDS: ENOXAPARIN 40MG/0.4ML SYR SUBCUT SCH (14:47)
[2019-01-16] MEDS ORDERED: CLONIDINE 0.2MG TABLET PO PRN (15:00)
[2019-01-16] MEDS ORDERED: CLONIDINE 0.1MG TABLET PO PRN (15:00)
[2019-01-16 16:00] VITALS: BP 128/87
[2019-01-16 17:44] LABS: CREATINE KINASE MB FRACTION 4.1 ng/mL (0.5-3.6)
[2019-01-16] MEDS: AMLODIPINE 5MG TABLET PO SCH ×2 (17:50→22:54)
[2019-01-16 19:51] VITALS: BP_SYST 128; BP_SYST 133; BP_DIAS 53; BP_DIAS 88
[2019-01-16] MEDS: BUDESONIDE 0.5MG/2ML NEB HHN SCH (21:09)
[2019-01-16] MEDS: GUAIFENESIN 600MG ER TABLET PO SCH (22:55)
[2019-01-16] MEDS: CARVEDILOL 6.25 MG TABLET PO SCH (22:55)
[2019-01-17] VITALS: BP 116/74
[2019-01-17 04:00] VITALS: BP 120/81
[2019-01-17 07:07] LABS: HEMATOCRIT. 36.2 % (42.0-52.0); HEMOGLOBIN. 11.6 g/dL (14.0-18.0); MEAN CORPUSCULAR HEMOGLOBIN 26.3 pg (28.0-32.0); MEAN CORPUSCULAR VOLUME 81.7 fL (80.0-94.0); MEAN PLATELET VOLUME 8.9 fl (7.4-10.4); PLATELET 331 x1000/uL (130-400); RED BLOOD CELL COUNT 4.43 mill/uL (4.7-6.1); RED CELL DISTRIBUTION WIDTH 16.2 % (11.6-14.6)
[2019-01-17 08:00] VITALS: BP 114/83
[2019-01-17] MEDS: FUROSEMIDE 40MG/4ML VIAL IVP SCH (08:45)
[2019-01-17] MEDS: GUAIFENESIN 600MG ER TABLET PO SCH (08:45)
[2019-01-17] MEDS: ENOXAPARIN 40MG/0.4ML SYR SUBCUT SCH (08:46)
[2019-01-17] MEDS: AZITHROMYCIN 500 MG TABLET PO SCH (08:46)
[2019-01-17] MEDS: AMLODIPINE 5MG TABLET PO SCH (08:46)
[2019-01-17] MEDS: CARVEDILOL 6.25 MG TABLET PO SCH (08:46)
[2019-01-17] MEDS: BUDESONIDE 0.5MG/2ML NEB HHN SCH (08:50)
[2019-01-17] MEDS ORDERED: ASPIRIN 81MG TABLET PO SCH (09:00)
[2019-01-17] MEDS ORDERED: CEFTRIAXONE 1 G PREMIX 50 ML IV SCH (09:00)
[2019-01-17 10:59] LABS: PLATELET ESTIMATE NORMAL
[2019-01-17 12:00] VITALS: BP 99/65
[2019-01-17 14:01] VITALS: BP 99/65
== END 2019-01-17 14:45 | disposition home or self-care (01) | DRG 720 ==
LOC: ER 03:57 → 7WST 07:44 → ENRESERV 07:52
PROVIDERS: ADMIT Internal Medicine Nephrology; ATTEND Internal Medicine Nephrology
DX: A41.9 Sepsis, unspecified organism (principal); I50.23 Acute on chronic systolic (congestive) heart failure; E44.0 Moderate protein-calorie malnutrition; E87.8 Other disorders of electrolyte and fluid balance, not elsewhere classified; I13.0 Hypertensive heart and chronic kidney disease with heart failure and stage 1 through stage 4 chronic kidney disease, or unspecified chronic kidney disease; J18.9 Pneumonia, unspecified organism; I27.20 Pulmonary hypertension, unspecified; D64.9 Anemia, unspecified; F12.90 Cannabis use, unspecified, uncomplicated; F14.10 Cocaine abuse, uncomplicated; I08.0 Rheumatic disorders of both mitral and aortic valves; I42.0 Dilated cardiomyopathy; J44.9 Chronic obstructive pulmonary disease, unspecified; N18.3 Chronic kidney disease, stage 3 (moderate); N39.0 Urinary tract infection, site not specified; F10.10 Alcohol abuse, uncomplicated; Z87.891 Personal history of nicotine dependence; Z68.25 Body mass index [BMI] 25.0-25.9, adult
CPT/HCPCS: 36415; 71045; 80048; 80305; 82550; 82553; 83605; 83880; 84484; 85379; 87077; 87186; 93005; 93306; 94640; 96374; 99285; A4216; J0696; J1650; J1885; J1940; J2930; J7050; J7611; J7626

== ENCOUNTER 2019-03-09 07:20 | Emergency (ER) | payer MEDICAID ==
[~2019-03-09] VITALS: Ht 177.8 cm; Wt 7.0 kg
[~2019-03-09 07:20] MED LIST changes: -AMLO10TA80 PO; -ASPI-1159 PO; +ASPI-1393 PO
[2019-03-09] MEDS ORDERED: ALBUTEROL (0.083%) 2.5MG/3ML NEB HHN STA (07:44)
[2019-03-09] MEDS ORDERED: PREDNISONE 20MG TABLET PO STA (07:44)
[2019-03-09 08:36] LABS: CHLORIDE 107 mEq/L (98-107)
[2019-03-09 08:38] LABS: HEMATOCRIT. 36.2 % (42.0-52.0); HEMOGLOBIN. 11.5 g/dL (14.0-18.0); MEAN CORPUSCULAR HEMOGLOBIN 25.7 pg (28.0-32.0); MEAN CORPUSCULAR VOLUME 80.5 fL (80.0-94.0); MEAN PLATELET VOLUME 8.6 fl (7.4-10.4); PLATELET 313 x1000/uL (130-400); RED BLOOD CELL COUNT 4.49 mill/uL (4.7-6.1); RED CELL DISTRIBUTION WIDTH 16.9 % (11.6-14.6)
[2019-03-09 09:20] LABS: PLATELET ESTIMATE NORMAL
[2019-03-09 10:05] VITALS: BP 110/68
== END 2019-03-09 10:06 | disposition home or self-care (01) ==
LOC: ER 07:38
DX: R06.03 Acute respiratory distress (principal); J45.901 Unspecified asthma with (acute) exacerbation; E11.9 Type 2 diabetes mellitus without complications; I11.0 Hypertensive heart disease with heart failure; I50.9 Heart failure, unspecified; Z79.82 Long term (current) use of aspirin; Z79.899 Other long term (current) drug therapy; F12.10 Cannabis abuse, uncomplicated; F14.10 Cocaine abuse, uncomplicated
CPT/HCPCS: 36415; 71045; 80053; 85025; 93005; 94640; 99284; J7512; J7611

== ENCOUNTER 2019-04-17 05:33 | Inpatient (IN) | payer MEDICAID ==
[~2019-04-17] VITALS: Ht 172.7 cm; Wt 83.9 kg
[2019-04-17] MEDS ORDERED: ASPIRIN 81MG TABLET PO ONE (06:15)
[2019-04-17] MEDS ORDERED: FUROSEMIDE 40MG/4ML VIAL IV ONE (06:15)
[2019-04-17] MEDS ORDERED: NITROGLYCERIN OINT 1GM/INCH UDPKT TD ONE (06:30)
[2019-04-17 06:44] LABS: HEMATOCRIT. 33.8 % (42.0-52.0); HEMOGLOBIN. 10.7 g/dL (14.0-18.0); MEAN CORPUSCULAR HEMOGLOBIN 25.3 pg (28.0-32.0); MEAN CORPUSCULAR VOLUME 79.5 fL (80.0-94.0); MEAN PLATELET VOLUME 8.8 fl (7.4-10.4); PLATELET 281 x1000/uL (130-400); RED BLOOD CELL COUNT 4.25 mill/uL (4.7-6.1); RED CELL DISTRIBUTION WIDTH 17.9 % (11.6-14.6)
[2019-04-17 06:50] LABS: CHLORIDE 112 mEq/L (98-107)
[2019-04-17 06:53] LABS: INR 1.1; PROTHROMBIN TIME 11.7 sec (9.6-11.0)
[2019-04-17 07:22] LABS: PLATELET ESTIMATE NORMAL
[2019-04-17] MEDS ORDERED: ACETAMINOPHEN 325MG TABLET PO PRN (09:00)
[2019-04-17] MEDS ORDERED: MAGNESIUM/ALUMINUM HYDROXIDE/SIMETHICONE 30ML UDC PO PRN (09:00)
[2019-04-17] MEDS ORDERED: HYDROCODONE/ACETAMINOPHEN 5/325MG TABLET PO PRN (09:00)
[2019-04-17] MEDS ORDERED: CLONIDINE 0.1MG TABLET PO PRN (09:00)
[2019-04-17] MEDS ORDERED: DIPHENHYDRAMINE 50MG/ML VIAL IV PRN (09:00)
[2019-04-17] MEDS ORDERED: ONDANSETRON HCL 4MG/2ML INJ IV PRN (09:00)
[2019-04-17] MEDS ORDERED: GUAIFENESIN 200MG/10ML SUGAR FREE UDC PO PRN (09:00)
[2019-04-17] MEDS ORDERED: DOCUSATE SODIUM 100MG CAPSULE PO PRN (09:00)
[2019-04-17 09:12] LABS: PHOSPHORUS 3.5 mg/dL (2.5-4.9)
[2019-04-17 10:23] LABS: CLARITY URINE CLOUDY (CLEAR); COLOR URINE YELLOW (YELLOW); KETONES URINE NEGATIVE (NEGATIVE); LEUKOCYTE ESTERASE URINE 2+ (NEGATIVE); NITRITE URINE NEGATIVE (NEGATIVE); OCCULT BLOOD URINE NEGATIVE (NEGATIVE); PROTEIN URINE 1+ (NEGATIVE); SPECIFIC GRAVITY URINE 1.018 (1.005-1.030)
[2019-04-17 10:28] LABS: CREATINE KINASE 528 IU/L (39-308)
[2019-04-17 10:50] VITALS: BP 123/84
[2019-04-17 11:20] VITALS: BP 123/84
[2019-04-17 12:00] VITALS: BP 122/72
[2019-04-17] MEDS: ENOXAPARIN 40MG/0.4ML SYR SUBCUT SCH (13:30)
[2019-04-17] MEDS: AMLODIPINE 2.5MG TABLET PO SCH ×2 (14:30→22:51)
[2019-04-17 14:53] LABS: *AMPHETAMINES SCREEN URINE NEGATIVE (NEGATIVE); *BARBITURATES SCREEN URINE NEGATIVE (NEGATIVE); *BENZODIAZEPINES SCREEN URINE NEGATIVE (NEGATIVE); *COCAINE SCREEN URINE PRESUMTIVE POSITIVE (NEGATIVE); METHADONE URINE SCREEN NEGATIVE (NEGATIVE); OPIATES URINE SCREEN NEGATIVE (NEGATIVE); PHENCYCLIDINE URINE SCREEN NEGATIVE (NEGATIVE)
[2019-04-17 14:54] LABS: CANNABINOID URINE SCREEN PRESUMTIVE POSITIVE (NEGATIVE)
[2019-04-17] MEDS: POTASSIUM CHLORIDE 20MEQ TABLET SR PO SCH ×2 (15:23→22:50)
[2019-04-17 16:00] VITALS: BP 127/87
[2019-04-17 16:09] LABS: CREATINE KINASE MB FRACTION 4.9 ng/mL (0.5-3.6)
[2019-04-17] MEDS: FUROSEMIDE 40MG/4ML VIAL IVP SCH ×2 (17:00→18:34)
[2019-04-17 20:00] VITALS: BP 122/78
[2019-04-17] MEDS ORDERED: DEXTROSE 50% WATER 50ML SYRINGE IV PRN (21:45)
[2019-04-17] MEDS: CEFTRIAXONE 1 G PREMIX 50 ML IV SCH (22:14)
[2019-04-17] MEDS: IPRATROPIUM/ALBUTEROL 0.5-3(2.5)MG/3ML NEB INH PRN (22:55)
[2019-04-18] VITALS: BP 125/75
[2019-04-18] MEDS: IPRATROPIUM/ALBUTEROL 0.5-3(2.5)MG/3ML NEB INH PRN ×2 (03:45→09:14)
[2019-04-18 04:00] VITALS: BP 128/89
[2019-04-18 05:38] LABS: BASOPHILS % 1.3 % (0.0-2.0); EOSINOPHILS % 3.2 % (0.0-5.0); HEMATOCRIT. 36.4 % (42.0-52.0); HEMOGLOBIN. 11.5 g/dL (14.0-18.0); LYMPHOCYTES % 13.4 % (20.0-50.0); MEAN CORPUSCULAR HEMOGLOBIN 24.9 pg (28.0-32.0); MEAN CORPUSCULAR VOLUME 78.6 fL (80.0-94.0); MEAN PLATELET VOLUME 9.2 fl (7.4-10.4); MONOCYTES % 6.8 % (2.0-8.0); NEUTROPHILS % 75.3 % (40.0-76.0); PLATELET 298 x1000/uL (130-400); RED BLOOD CELL COUNT 4.63 mill/uL (4.7-6.1); RED CELL DISTRIBUTION WIDTH 17.8 % (11.6-14.6)
[2019-04-18 06:20] LABS: CHLORIDE 109 mEq/L (98-107)
[2019-04-18 06:28] LABS: HDL CHOLESTEROL 32 mg/dL (40-59)
[2019-04-18 06:30] LABS: LDL CHOLESTEROL 44 mg/dL (5-100)
[2019-04-18] MEDS: BLOOD SUGAR DIAGNOSTIC STRIP TEST SCH ×4 (07:06→21:23)
[2019-04-18] MEDS: INSULIN LISPRO 100 UNITS/ML SUBCUT SCH ×4 (07:07→21:43)
[2019-04-18 08:00] VITALS: BP 132/92
[2019-04-18] MEDS: AMLODIPINE 2.5MG TABLET PO SCH ×2 (09:03→21:28)
[2019-04-18] MEDS: POTASSIUM CHLORIDE 20MEQ TABLET SR PO SCH ×2 (09:03→18:10)
[2019-04-18] MEDS: ENOXAPARIN 40MG/0.4ML SYR SUBCUT SCH (09:03)
[2019-04-18] MEDS: FUROSEMIDE 40MG/4ML VIAL IVP SCH ×2 (09:03→18:10)
[2019-04-18 12:00] VITALS: BP 132/86
[2019-04-18 15:00] LABS: BG BASE EXCESS 0.2 mmol/L (-2.0-2.0); BG CARBOXYHEMOGLOBIN 1.1 % (0.5-1.5); BG DEOXYHEMOGLOBIN 1.3 % (0.0-5.0); BG FRACTION INSPIRED OXYGEN 32; BG HCO3 ACT 23.2 mmol/L (22.0-26.0); BG METHEMOGLOBIN 0.4 % (0.0-1.5); BG OXYGEN SATURATION 98.7 % (92.0-98.5); BG OXYHEMOGLOBIN 97.2 % (94.0-97.0); BG PCO2 32.6 mmHg (35.0-45.0); BG PO2 130.4 mmHg (75.0-100.0); BG SAMPLE SITE RIGHT RADIAL; BG TOTAL HEMOGLOBIN 13.2 g/dL (12.0-18.0); BG VENT MODE NASAL CANNULA
[2019-04-18 15:11] LABS: ANTI-NUCLEAR ANTIBODIES DIRECT Negative (Negative)
[2019-04-18 16:00] VITALS: BP 131/95
[2019-04-18 20:00] VITALS: BP 132/79
[2019-04-18] MEDS: CEFTRIAXONE 1 G PREMIX 50 ML IV SCH (21:27)
[2019-04-18] MEDS: LACTULOSE 20G/30ML UDC PO SCH (21:38)
[2019-04-19] VITALS (7 sets, daily range): BP systolic 114–136; BP diastolic 76–99
[2019-04-19 04:01] LABS: BASOPHILS % 1.2 % (0.0-2.0); EOSINOPHILS % 3.3 % (0.0-5.0); HEMATOCRIT. 38.7 % (42.0-52.0); HEMOGLOBIN. 12.2 g/dL (14.0-18.0); LYMPHOCYTES % 14.9 % (20.0-50.0); MEAN PLATELET VOLUME 9.4 fl (7.4-10.4); MONOCYTES % 9.2 % (2.0-8.0); NEUTROPHILS % 71.4 % (40.0-76.0); PLATELET 324 x1000/uL (130-400); RED CELL DISTRIBUTION WIDTH 17.8 % (11.6-14.6)
[2019-04-19] MEDS: LACTULOSE 20G/30ML UDC PO SCH ×3 (05:18→21:50)
[2019-04-19] MEDS: INSULIN LISPRO 100 UNITS/ML SUBCUT SCH ×4 (05:23→21:59)
[2019-04-19] MEDS: BLOOD SUGAR DIAGNOSTIC STRIP TEST SCH ×4 (05:23→21:59)
[2019-04-19 08:07] LABS: COMPLEMENT C3 108 mg/dL (82-167)
[2019-04-19] MEDS: AMLODIPINE 2.5MG TABLET PO SCH ×2 (09:00→21:50)
[2019-04-19] MEDS: POTASSIUM CHLORIDE 20MEQ TABLET SR PO SCH ×2 (09:26→17:38)
[2019-04-19] MEDS: ENOXAPARIN 40MG/0.4ML SYR SUBCUT SCH (09:27)
[2019-04-19] MEDS: FUROSEMIDE 40MG/4ML VIAL IVP SCH (09:33)
[2019-04-19] MEDS: CEFTRIAXONE 1 G PREMIX 50 ML IV SCH (21:50)
[2019-04-20] VITALS: BP 105/68
[2019-04-20 04:00] VITALS: BP 117/78
[2019-04-20] MEDS: LACTULOSE 20G/30ML UDC PO SCH ×3 (05:16→22:30)
[2019-04-20] MEDS: INSULIN LISPRO 100 UNITS/ML SUBCUT SCH ×4 (05:23→21:00)
[2019-04-20] MEDS: BLOOD SUGAR DIAGNOSTIC STRIP TEST SCH ×4 (05:23→21:00)
[2019-04-20 06:56] LABS: BASOPHILS % 1.3 % (0.0-2.0); EOSINOPHILS % 5.3 % (0.0-5.0); HEMATOCRIT. 39.6 % (42.0-52.0); HEMOGLOBIN. 12.4 g/dL (14.0-18.0); LYMPHOCYTES % 15.1 % (20.0-50.0); MEAN CORPUSCULAR HEMOGLOBIN 24.7 pg (28.0-32.0); MEAN PLATELET VOLUME 9.2 fl (7.4-10.4); MONOCYTES % 10.5 % (2.0-8.0); NEUTROPHILS % 67.8 % (40.0-76.0); PLATELET 335 x1000/uL (130-400); RED BLOOD CELL COUNT 5.01 mill/uL (4.7-6.1)
[2019-04-20 08:00] VITALS: BP 112/80
[2019-04-20] MEDS: AMLODIPINE 2.5MG TABLET PO SCH ×2 (09:00→21:00)
[2019-04-20] MEDS: POTASSIUM CHLORIDE 20MEQ TABLET SR PO SCH ×2 (09:00→18:39)
[2019-04-20] MEDS: FUROSEMIDE 40MG/4ML VIAL IVP SCH (09:00)
[2019-04-20] MEDS: ENOXAPARIN 40MG/0.4ML SYR SUBCUT SCH (09:01)
[2019-04-20 12:00] VITALS: BP 112/78
[2019-04-20 16:00] VITALS: BP 118/82
[2019-04-20] MEDS ORDERED: ALBU18HF2 IH (16:25)
[2019-04-20] MEDS: IPRATROPIUM/ALBUTEROL 0.5-3(2.5)MG/3ML NEB INH PRN (17:37)
[2019-04-20 20:00] VITALS: BP 114/73
[2019-04-20] MEDS: CEFTRIAXONE 1 G PREMIX 50 ML IV SCH (21:58)
[2019-04-21] VITALS: BP 132/88
[2019-04-21 04:00] VITALS: BP 137/79
[2019-04-21] MEDS: LACTULOSE 20G/30ML UDC PO SCH (05:45)
[2019-04-21] MEDS: BLOOD SUGAR DIAGNOSTIC STRIP TEST SCH ×2 (06:15→12:55)
[2019-04-21] MEDS: INSULIN LISPRO 100 UNITS/ML SUBCUT SCH ×2 (06:22→12:40)
[2019-04-21 06:35] LABS: BASOPHILS % 1.4 % (0.0-2.0); EOSINOPHILS % 5.1 % (0.0-5.0); HEMATOCRIT. 38.8 % (42.0-52.0); HEMOGLOBIN. 12.3 g/dL (14.0-18.0); MEAN CORPUSCULAR VOLUME 78.8 fL (80.0-94.0); MEAN PLATELET VOLUME 9.2 fl (7.4-10.4); MONOCYTES % 11.4 % (2.0-8.0); NEUTROPHILS % 63.1 % (40.0-76.0); PLATELET 342 x1000/uL (130-400); RED BLOOD CELL COUNT 4.93 mill/uL (4.7-6.1); RED CELL DISTRIBUTION WIDTH 17.8 % (11.6-14.6)
[2019-04-21 06:59] LABS: CHLORIDE 106 mEq/L (98-107)
[2019-04-21 08:00] VITALS: BP 114/76
[2019-04-21] MEDS ORDERED: RIFAXIMIN 550 MG TABLET PO SCH (09:00)
[2019-04-21] MEDS: POTASSIUM CHLORIDE 20MEQ TABLET SR PO SCH (09:04)
[2019-04-21] MEDS: ENOXAPARIN 40MG/0.4ML SYR SUBCUT SCH (09:04)
[2019-04-21] MEDS: AMLODIPINE 2.5MG TABLET PO SCH (09:04)
[2019-04-21] MEDS: FUROSEMIDE 40MG/4ML VIAL IVP SCH (09:13)
[2019-04-21 12:00] VITALS: BP 104/73
[2019-04-21] MEDS ORDERED: LACTULOSE 20G/30ML UDC PO SCH (14:00)
[2019-04-21 14:10] VITALS: BP 104/73
== END 2019-04-21 15:15 | disposition home or self-care (01) | DRG 279 ==
LOC: ER 05:33 → 8WST 07:19 → EDBEDREQ 07:32 → EDBEDREQTM 07:32 → ENRESERV 09:12
PROVIDERS: ADMIT Internal Medicine; ATTEND Internal Medicine
DX: K72.90 Hepatic failure, unspecified without coma (principal); E43 Unspecified severe protein-calorie malnutrition; I50.23 Acute on chronic systolic (congestive) heart failure; N17.9 Acute kidney failure, unspecified; E11.22 Type 2 diabetes mellitus with diabetic chronic kidney disease; I27.20 Pulmonary hypertension, unspecified; D50.9 Iron deficiency anemia, unspecified; F12.90 Cannabis use, unspecified, uncomplicated; I13.0 Hypertensive heart and chronic kidney disease with heart failure and stage 1 through stage 4 chronic kidney disease, or unspecified chronic kidney disease; Z87.891 Personal history of nicotine dependence; I42.0 Dilated cardiomyopathy; F14.90 Cocaine use, unspecified, uncomplicated; I08.0 Rheumatic disorders of both mitral and aortic valves; J44.9 Chronic obstructive pulmonary disease, unspecified; N18.9 Chronic kidney disease, unspecified; N39.0 Urinary tract infection, site not specified; Z79.899 Other long term (current) drug therapy; Z91.19 Patient's noncompliance with other medical treatment and regimen; Z79.51 Long term (current) use of inhaled steroids; Z79.82 Long term (current) use of aspirin; Z68.28 Body mass index [BMI] 28.0-28.9, adult
CPT/HCPCS: 36415; 36600; 71045; 76770; 80048; 80061; 80076; 80305; 81003; 82140; 82248; 82375; 82550; 82553; 82805; 82962; 83735; 83880; 84100; 84443; 84484; 85379; 86038; 86160; 93005; 93970; 94640; 96374; 99285; J0696; J1650; J1815; J1940; J2405; J7040; J7620; A4315

== ENCOUNTER 2019-06-29 13:23 | Inpatient (IN) | payer MEDICAID ==
[~2019-06-29] VITALS: Ht 175.3 cm; Wt 77.1 kg
[2019-06-29 14:44] LABS: HEMATOCRIT. 39.1 % (42.0-52.0); HEMOGLOBIN. 12.4 g/dL (14.0-18.0); MEAN CORPUSCULAR HEMOGLOBIN 25.2 pg (28.0-32.0); MEAN CORPUSCULAR VOLUME 79.5 fL (80.0-94.0); MEAN PLATELET VOLUME 8.9 fl (7.4-10.4); PLATELET 272 x1000/uL (130-400); RED BLOOD CELL COUNT 4.92 mill/uL (4.7-6.1); RED CELL DISTRIBUTION WIDTH 19.7 % (11.6-14.6)
[2019-06-29 14:50] LABS: CHLORIDE 109 mEq/L (98-107)
[2019-06-29] MEDS ORDERED: FUROSEMIDE 40MG/4ML VIAL IVP ONE (15:20)
[2019-06-29 16:18] LABS: PLATELET ESTIMATE NORMAL
[2019-06-29] MEDS ORDERED: IPRATROPIUM/ALBUTEROL 0.5-3(2.5)MG/3ML NEB HHN PRN (16:45)
[2019-06-29] MEDS ORDERED: GUAIFENESIN 200MG/10ML SUGAR FREE UDC PO PRN (16:45)
[2019-06-29] MEDS ORDERED: CLONIDINE 0.1MG TABLET PO PRN (16:45)
[2019-06-29] MEDS ORDERED: DIPHENHYDRAMINE 50MG/ML VIAL IV PRN (16:45)
[2019-06-29] MEDS ORDERED: ACETAMINOPHEN 325MG TABLET PO PRN (16:45)
[2019-06-29] MEDS ORDERED: MAGNESIUM/ALUMINUM HYDROXIDE/SIMETHICONE 30ML UDC PO PRN (16:45)
[2019-06-29] MEDS ORDERED: DOCUSATE SODIUM 100MG CAPSULE PO PRN (16:45)
[2019-06-29 17:38] LABS: PHOSPHORUS 2.9 mg/dL (2.5-4.9)
[2019-06-29] MEDS ORDERED: ASPIRIN 81MG TABLET PO ONE (18:45)
[2019-06-29 23:48] VITALS: BP 104/72
[2019-06-30 01:17] VITALS: BP 109/72
[2019-06-30 01:37] LABS: CREATINE KINASE MB FRACTION 2.9 ng/mL (0.5-3.6)
[2019-06-30 03:50] VITALS: BP 110/76
[2019-06-30 06:26] LABS: BASOPHILS % 0.7 % (0.0-2.0); EOSINOPHILS % 1.7 % (0.0-5.0); HEMATOCRIT. 39.9 % (42.0-52.0); HEMOGLOBIN. 12.8 g/dL (14.0-18.0); LYMPHOCYTES % 11.7 % (20.0-50.0); MEAN CORPUSCULAR HEMOGLOBIN 25.3 pg (28.0-32.0); MEAN CORPUSCULAR VOLUME 78.9 fL (80.0-94.0); MEAN PLATELET VOLUME 9.3 fl (7.4-10.4); MONOCYTES % 5.4 % (2.0-8.0); NEUTROPHILS % 80.5 % (40.0-76.0); PLATELET 297 x1000/uL (130-400); RED BLOOD CELL COUNT 5.06 mill/uL (4.7-6.1); RED CELL DISTRIBUTION WIDTH 19.4 % (11.6-14.6)
[2019-06-30 06:39] LABS: CHLORIDE 106 mEq/L (98-107)
[2019-06-30 06:57] LABS: LDL CHOLESTEROL 56 mg/dL (5-100)
[2019-06-30 06:58] LABS: CREATINE KINASE 239 IU/L (39-308)
[2019-06-30 06:59] LABS: HDL CHOLESTEROL 30 mg/dL (40-59)
[2019-06-30 07:00] LABS: CREATINE KINASE MB FRACTION 2.9 ng/mL (0.5-3.6)
[2019-06-30 08:00] VITALS: BP 105/74
[2019-06-30] MEDS: FUROSEMIDE 40MG/4ML VIAL IVP SCH ×2 (08:44→17:30)
[2019-06-30] MEDS: ENOXAPARIN 40MG/0.4ML SYR SUBCUT SCH (08:44)
[2019-06-30 12:00] VITALS: BP 106/76
[2019-06-30 16:00] VITALS: BP 106/68
[2019-06-30 18:35] LABS: *AMPHETAMINES SCREEN URINE NEGATIVE (NEGATIVE)
[2019-06-30 18:36] LABS: *BARBITURATES SCREEN URINE NEGATIVE (NEGATIVE); *BENZODIAZEPINES SCREEN URINE NEGATIVE (NEGATIVE); *COCAINE SCREEN URINE PRESUMTIVE POSITIVE (NEGATIVE); METHADONE URINE SCREEN NEGATIVE (NEGATIVE); OPIATES URINE SCREEN NEGATIVE (NEGATIVE)
[2019-06-30 18:37] LABS: CANNABINOID URINE SCREEN PRESUMTIVE POSITIVE (NEGATIVE); PHENCYCLIDINE URINE SCREEN NEGATIVE (NEGATIVE)
[2019-06-30 20:00] VITALS: BP 121/78
[2019-06-30] MEDS: IPRATROPIUM/ALBUTEROL 0.5-3(2.5)MG/3ML NEB HHN SCH (20:48)
[2019-06-30] MEDS: GUAIFENESIN 600MG ER TABLET PO SCH (22:38)
[2019-07-01] VITALS: BP 119/74
[2019-07-01] MEDS: IPRATROPIUM/ALBUTEROL 0.5-3(2.5)MG/3ML NEB HHN SCH ×4 (01:47→21:19)
[2019-07-01 04:13] VITALS: BP 121/78
[2019-07-01 07:23] LABS: PHOSPHORUS 4.4 mg/dL (2.5-4.9)
[2019-07-01 08:00] VITALS: BP 111/71
[2019-07-01] MEDS: FERROUS SULFATE 325MG TABLET PO SCH ×2 (12:02→18:15)
[2019-07-01] MEDS: DOCUSATE SODIUM 100MG CAPSULE PO SCH ×2 (12:02→18:15)
[2019-07-01] MEDS: FUROSEMIDE 40MG/4ML VIAL IVP SCH ×2 (12:02→18:16)
[2019-07-01] MEDS: ENOXAPARIN 40MG/0.4ML SYR SUBCUT SCH (12:02)
[2019-07-01] MEDS: ASCORBIC ACID 500 MG TABLET PO SCH ×2 (12:02→21:30)
[2019-07-01] MEDS: GUAIFENESIN 600MG ER TABLET PO SCH ×2 (12:05→21:30)
[2019-07-01 15:47] LABS: *BENZODIAZEPINES SCREEN URINE NEGATIVE (NEGATIVE); *COCAINE SCREEN URINE PRESUMTIVE POSITIVE (NEGATIVE); CANNABINOID URINE SCREEN PRESUMTIVE POSITIVE (NEGATIVE); METHADONE URINE SCREEN NEGATIVE (NEGATIVE); OPIATES URINE SCREEN NEGATIVE (NEGATIVE); PHENCYCLIDINE URINE SCREEN NEGATIVE (NEGATIVE)
[2019-07-01 15:48] LABS: *AMPHETAMINES SCREEN URINE NEGATIVE (NEGATIVE); *BARBITURATES SCREEN URINE NEGATIVE (NEGATIVE)
[2019-07-01 20:00] VITALS: BP 119/79
[2019-07-02] VITALS: BP 121/79
[2019-07-02] MEDS: IPRATROPIUM/ALBUTEROL 0.5-3(2.5)MG/3ML NEB HHN SCH ×3 (01:21→13:21)
[2019-07-02 04:00] VITALS: BP 118/75
[2019-07-02 07:15] LABS: HEMATOCRIT. 40.6 % (42.0-52.0); MEAN CORPUSCULAR HEMOGLOBIN 25.3 pg (28.0-32.0); MEAN CORPUSCULAR VOLUME 78.9 fL (80.0-94.0); MEAN PLATELET VOLUME 9.2 fl (7.4-10.4); PLATELET 299 x1000/uL (130-400); RED BLOOD CELL COUNT 5.15 mill/uL (4.7-6.1); RED CELL DISTRIBUTION WIDTH 19.3 % (11.6-14.6)
[2019-07-02 07:33] LABS: PHOSPHORUS 4.4 mg/dL (2.5-4.9)
[2019-07-02 07:42] VITALS: BP 110/72
[2019-07-02] MEDS: GUAIFENESIN 600MG ER TABLET PO SCH (08:30)
[2019-07-02] MEDS: FERROUS SULFATE 325MG TABLET PO SCH ×2 (08:30→13:34)
[2019-07-02] MEDS: ENOXAPARIN 40MG/0.4ML SYR SUBCUT SCH (08:30)
[2019-07-02] MEDS: FUROSEMIDE 40MG/4ML VIAL IVP SCH (08:30)
[2019-07-02] MEDS: ASCORBIC ACID 500 MG TABLET PO SCH (08:30)
[2019-07-02] MEDS: DOCUSATE SODIUM 100MG CAPSULE PO SCH (08:30)
[2019-07-02] MEDS ORDERED: DOCU-138 PO (11:19)
[2019-07-02] MEDS ORDERED: FERR325T23 PO (11:19)
[2019-07-02] MEDS ORDERED: ASCO500T20 PO (11:19)
[2019-07-02 12:00] VITALS: BP 116/78
[2019-07-02 13:41] VITALS: BP 116/78
[2019-07-02 21:24] LABS: PLATELET ESTIMATE NORMAL
== END 2019-07-02 15:08 | disposition home or self-care (01) | DRG 133 ==
LOC: ER 13:23 → 6WST 16:05 → ENRESERV 19:59
PROVIDERS: ADMIT Internal Medicine; ATTEND Internal Medicine
DX: J96.00 Acute respiratory failure, unspecified whether with hypoxia or hypercapnia (principal); I50.23 Acute on chronic systolic (congestive) heart failure; E11.22 Type 2 diabetes mellitus with diabetic chronic kidney disease; I27.20 Pulmonary hypertension, unspecified; I42.9 Cardiomyopathy, unspecified; J68.0 Bronchitis and pneumonitis due to chemicals, gases, fumes and vapors; D50.9 Iron deficiency anemia, unspecified; F12.10 Cannabis abuse, uncomplicated; I13.0 Hypertensive heart and chronic kidney disease with heart failure and stage 1 through stage 4 chronic kidney disease, or unspecified chronic kidney disease; N18.9 Chronic kidney disease, unspecified; I35.1 Nonrheumatic aortic (valve) insufficiency; E66.9 Obesity, unspecified; E78.5 Hyperlipidemia, unspecified; F14.10 Cocaine abuse, uncomplicated; Z79.84 Long term (current) use of oral hypoglycemic drugs; Z79.899 Other long term (current) drug therapy; Z79.82 Long term (current) use of aspirin; Z68.25 Body mass index [BMI] 25.0-25.9, adult
CPT/HCPCS: 36415; 71045; 80048; 80061; 80305; 82550; 82553; 82728; 82962; 83036; 83540; 83550; 83735; 83880; 84100; 84443; 84484; 93005; 93970; 94640; 96374; 99285; J1650; J1940; J7620

== ENCOUNTER 2019-09-01 06:59 | Inpatient (IN) | payer MEDICAID ==
[~2019-09-01] VITALS: Ht 172.7 cm; Wt 80.8 kg
[~2019-09-01 06:59] MED LIST changes: +ASCO500T20 PO; +DOCU-138 PO; +FERR325T23 PO
[2019-09-01] MEDS ORDERED: SODIUM CHLORIDE 0.9% 1,000 ML IV ONE (07:18)
[2019-09-01] MEDS ORDERED: ONDANSETRON HCL 4MG/2ML INJ IV STA (07:18)
[2019-09-01 08:35] LABS: HEMATOCRIT. 26.1 % (42.0-52.0); HEMOGLOBIN. 8.1 g/dL (14.0-18.0); MEAN CORPUSCULAR HEMOGLOBIN 27.4 pg (28.0-32.0); MEAN CORPUSCULAR VOLUME 88.1 fL (80.0-94.0); MEAN PLATELET VOLUME 8.7 fl (7.4-10.4); PLATELET 153 x1000/uL (130-400); RED BLOOD CELL COUNT 2.96 mill/uL (4.7-6.1); RED CELL DISTRIBUTION WIDTH 18.7 % (11.6-14.6)
[2019-09-01 08:39] LABS: CHLORIDE 109 mEq/L (98-107)
[2019-09-01 09:03] LABS: BG BASE EXCESS -4.1 mmol/L (-2.0-2.0); BG CARBOXYHEMOGLOBIN 1.9 % (0.5-1.5); BG DEOXYHEMOGLOBIN 7.4 % (0.0-5.0); BG FRACTION INSPIRED OXYGEN 100; BG METHEMOGLOBIN 0.2 % (0.0-1.5); BG OXYGEN SATURATION 92.4 % (92.0-98.5); BG OXYHEMOGLOBIN 90.5 % (94.0-97.0); BG PCO2 33.8 mmHg (35.0-45.0); BG PH 7.389 (7.350-7.450); BG PO2 67.2 mmHg (75.0-100.0); BG SAMPLE SITE RIGHT RADIAL; BG TOTAL HEMOGLOBIN 14.1 g/dL (12.0-18.0); BG VENT MODE MASK - SIMPLE
[2019-09-01] MEDS ORDERED: IOHEXOL-350 100 ML BOTTLE ONE (10:05)
[2019-09-01] MEDS ORDERED: CEFTRIAXONE 1 G PREMIX 50 ML IV ONE (10:15)
[2019-09-01] MEDS ORDERED: AZITHROMYCIN 500 MG in DEXT 5% WATER 250 ML IV SCH ×2 (10:15→14:30)
[2019-09-01 13:20] LABS: PLATELET ESTIMATE NORMAL
[2019-09-01] MEDS ORDERED: IPRATROPIUM/ALBUTEROL 0.5-3(2.5)MG/3ML NEB HHN PRN (14:15)
[2019-09-01] MEDS ORDERED: SODIUM CHLORIDE 10% FOR INH 15ML VIAL NEB INH SCH (14:15)
[2019-09-01] MEDS ORDERED: IPRATROPIUM/ALBUTEROL 0.5-3(2.5)MG/3ML NEB HHN SCH (16:00)
[2019-09-01] MEDS ORDERED: GUAIFENESIN 200MG/10ML SUGAR FREE UDC PO PRN (17:30)
[2019-09-01] MEDS ORDERED: DEXTROSE 50% WATER 50ML SYRINGE IV PRN ×2 (17:30)
[2019-09-01] MEDS ORDERED: DOCUSATE SODIUM 100MG CAPSULE PO PRN (17:30)
[2019-09-01] MEDS ORDERED: ACETAMINOPHEN 325MG TABLET PO PRN (17:30)
[2019-09-01] MEDS ORDERED: CLONIDINE 0.1MG TABLET PO PRN (17:30)
[2019-09-01] MEDS ORDERED: MAGNESIUM/ALUMINUM HYDROXIDE/SIMETHICONE 30ML UDC PO PRN (17:30)
[2019-09-01] MEDS ORDERED: HYDROCODONE/ACETAMINOPHEN 5/325MG TABLET PO PRN (17:30)
[2019-09-01] MEDS ORDERED: ONDANSETRON HCL 4MG/2ML INJ IV PRN (17:30)
[2019-09-01 20:50] VITALS: BP 110/60
[2019-09-01 21:15] LABS: TOTAL IRON BINDING CAPACITY 410 ug/dL (250-450)
[2019-09-01] MEDS: INSULIN LISPRO 100 UNITS/ML SUBCUT SCH (22:00)
[2019-09-01] MEDS: BLOOD SUGAR DIAGNOSTIC STRIP TEST SCH (22:46)
[2019-09-02] VITALS (7 sets, daily range): BP systolic 99–127; BP diastolic 60–85
[2019-09-02] MEDS: AZITHROMYCIN 500 MG in DEXT 5% WATER 250 ML IV SCH ×2 (01:19→23:23)
[2019-09-02] MEDS: IPRATROPIUM/ALBUTEROL 0.5-3(2.5)MG/3ML NEB HHN SCH ×6 (02:02→21:01)
[2019-09-02] MEDS: BLOOD SUGAR DIAGNOSTIC STRIP TEST SCH ×4 (06:07→21:08)
[2019-09-02] MEDS: INSULIN LISPRO 100 UNITS/ML SUBCUT SCH ×4 (07:01→21:00)
[2019-09-02] MEDS: PANTOPRAZOLE SODIUM 40 MG/VIAL IV SCH (08:52)
[2019-09-02 09:08] LABS: BG BASE EXCESS 0.1 mmol/L (-2.0-2.0); BG CARBOXYHEMOGLOBIN 1.3 % (0.5-1.5); BG FRACTION INSPIRED OXYGEN 21; BG HCO3 ACT 23.5 mmol/L (22.0-26.0); BG METHEMOGLOBIN 0.2 % (0.0-1.5); BG OXYGEN SATURATION 85.8 % (92.0-98.5); BG OXYHEMOGLOBIN 84.5 % (94.0-97.0); BG PCO2 34.2 mmHg (35.0-45.0); BG PH 7.454 (7.350-7.450); BG PO2 47.2 mmHg (75.0-100.0); BG SAMPLE SITE RIGHT BRACHIAL; BG TOTAL HEMOGLOBIN 13.6 g/dL (12.0-18.0); BG VENT MODE ROOM AIR
[2019-09-02] MEDS: ACETYLCYSTEINE 100MG/ML 10% VIAL 4ML INH SCH ×2 (09:15→17:10)
[2019-09-02] MEDS: CEFTRIAXONE 1 G PREMIX 50 ML IV SCH (09:23)
[2019-09-02 09:35] LABS: HEMATOCRIT. 39.4 % (42.0-52.0); HEMOGLOBIN. 12.5 g/dL (14.0-18.0); MEAN CORPUSCULAR HEMOGLOBIN 27.1 pg (28.0-32.0); MEAN CORPUSCULAR VOLUME 85.4 fL (80.0-94.0); MEAN PLATELET VOLUME 9.1 fl (7.4-10.4); PLATELET 213 x1000/uL (130-400); RED BLOOD CELL COUNT 4.61 mill/uL (4.7-6.1); RED CELL DISTRIBUTION WIDTH 18.1 % (11.6-14.6)
[2019-09-02 10:02] LABS: PHOSPHORUS 2.2 mg/dL (2.5-4.9)
[2019-09-02 10:34] LABS: PLATELET ESTIMATE NORMAL
[2019-09-02] MEDS: ENOXAPARIN 40MG/0.4ML SYR SUBCUT SCH (14:37)
[2019-09-02] MEDS: FERROUS SULFATE 325MG TABLET PO SCH (17:33)
[2019-09-02] MEDS: ASCORBIC ACID 500 MG TABLET PO SCH (20:59)
[2019-09-02] MEDS: CARVEDILOL 3.125 MG TABLET PO SCH (20:59)
[2019-09-03] VITALS: BP 112/82
[2019-09-03] MEDS: ACETYLCYSTEINE 100MG/ML 10% VIAL 4ML INH SCH ×2 (00:47→08:33)
[2019-09-03] MEDS: IPRATROPIUM/ALBUTEROL 0.5-3(2.5)MG/3ML NEB HHN SCH ×6 (00:47→21:37)
[2019-09-03 04:00] VITALS: BP 128/85
[2019-09-03] MEDS: BLOOD SUGAR DIAGNOSTIC STRIP TEST SCH ×4 (06:45→21:00)
[2019-09-03] MEDS: INSULIN LISPRO 100 UNITS/ML SUBCUT SCH ×4 (07:15→21:00)
[2019-09-03 07:44] LABS: HEMATOCRIT. 38.5 % (42.0-52.0); HEMOGLOBIN. 12.5 g/dL (14.0-18.0); MEAN CORPUSCULAR HEMOGLOBIN 27.3 pg (28.0-32.0); MEAN CORPUSCULAR VOLUME 84.3 fL (80.0-94.0); MEAN PLATELET VOLUME 9.2 fl (7.4-10.4); PLATELET 222 x1000/uL (130-400); RED BLOOD CELL COUNT 4.56 mill/uL (4.7-6.1); RED CELL DISTRIBUTION WIDTH 17.9 % (11.6-14.6)
[2019-09-03 08:00] VITALS: BP 124/79
[2019-09-03] MEDS: PANTOPRAZOLE SODIUM 40 MG/VIAL IV SCH (08:36)
[2019-09-03] MEDS: FUROSEMIDE 40MG TABLET PO SCH (08:37)
[2019-09-03] MEDS: ASCORBIC ACID 500 MG TABLET PO SCH ×2 (08:37→22:45)
[2019-09-03] MEDS: FERROUS SULFATE 325MG TABLET PO SCH ×3 (08:37→17:34)
[2019-09-03] MEDS: ASPIRIN 81MG EC TABLET PO SCH (08:37)
[2019-09-03] MEDS: BENAZEPRIL 10MG TABLET PO SCH (08:40)
[2019-09-03] MEDS: CARVEDILOL 3.125 MG TABLET PO SCH ×2 (08:40→22:45)
[2019-09-03] MEDS: CEFTRIAXONE 1 G PREMIX 50 ML IV SCH (11:02)
[2019-09-03 12:00] VITALS: BP 100/66
[2019-09-03] MEDS: ENOXAPARIN 40MG/0.4ML SYR SUBCUT SCH (14:34)
[2019-09-03 14:55] LABS: PLATELET ESTIMATE NORMAL
[2019-09-03 16:00] VITALS: BP 108/67
[2019-09-03 20:00] VITALS: BP 129/95
[2019-09-03] MEDS: AZITHROMYCIN 500 MG in DEXT 5% WATER 250 ML IV SCH (22:45)
[2019-09-04] VITALS: BP 109/78
[2019-09-04] MEDS: IPRATROPIUM/ALBUTEROL 0.5-3(2.5)MG/3ML NEB HHN SCH ×3 (01:02→09:30)
[2019-09-04] MEDS: ACETYLCYSTEINE 100MG/ML 10% VIAL 4ML INH SCH (01:05)
[2019-09-04 04:00] VITALS: BP 122/73
[2019-09-04] MEDS: FERROUS SULFATE 325MG TABLET PO SCH ×2 (06:33→11:43)
[2019-09-04] MEDS: INSULIN LISPRO 100 UNITS/ML SUBCUT SCH ×2 (06:34→11:37)
[2019-09-04] MEDS: BLOOD SUGAR DIAGNOSTIC STRIP TEST SCH ×2 (06:34→11:37)
[2019-09-04 07:35] LABS: BASOPHILS % 0.5 % (0.0-2.0); EOSINOPHILS % 7.9 % (0.0-5.0); HEMATOCRIT. 37.5 % (42.0-52.0); HEMOGLOBIN. 12.3 g/dL (14.0-18.0); LYMPHOCYTES % 10.5 % (20.0-50.0); MEAN CORPUSCULAR HEMOGLOBIN 27.7 pg (28.0-32.0); MEAN CORPUSCULAR VOLUME 84.4 fL (80.0-94.0); MEAN PLATELET VOLUME 9.2 fl (7.4-10.4); MONOCYTES % 9.2 % (2.0-8.0); NEUTROPHILS % 71.9 % (40.0-76.0); PLATELET 234 x1000/uL (130-400); RED BLOOD CELL COUNT 4.44 mill/uL (4.7-6.1); RED CELL DISTRIBUTION WIDTH 17.9 % (11.6-14.6)
[2019-09-04 08:00] VITALS: BP 118/74
[2019-09-04] MEDS: ASCORBIC ACID 500 MG TABLET PO SCH (08:59)
[2019-09-04] MEDS: FUROSEMIDE 40MG TABLET PO SCH (08:59)
[2019-09-04] MEDS: BENAZEPRIL 10MG TABLET PO SCH (09:00)
[2019-09-04] MEDS: CARVEDILOL 3.125 MG TABLET PO SCH (09:00)
[2019-09-04] MEDS: ASPIRIN 81MG EC TABLET PO SCH (09:00)
[2019-09-04] MEDS ORDERED: FAMOTIDINE 20MG TABLET PO SCH (09:00)
[2019-09-04] MEDS ORDERED: CEFTRIAXONE 1 G PREMIX 50 ML IV SCH (09:00)
[2019-09-04 10:41] VITALS: BP 118/74
[2019-09-04 12:00] VITALS: BP 101/60
[2019-09-04] MEDS ORDERED: AZITHROMYCIN 500 MG TABLET PO SCH (21:00)
== END 2019-09-04 13:30 | disposition home or self-care (01) | DRG 133 ==
LOC: ER 07:07 → 5WST 10:38 → ENRESERV 20:10
PROVIDERS: ADMIT Internal Medicine; ATTEND Internal Medicine
PROC: 5A09357 Assistance with Respiratory Ventilation, Less than 24 Consecutive Hours, Continuous Positive Airway Pressure (ICD-10-PCS; principal; 2019-09-02)
DX: J96.01 Acute respiratory failure with hypoxia (principal); J18.9 Pneumonia, unspecified organism; K92.0 Hematemesis; I13.0 Hypertensive heart and chronic kidney disease with heart failure and stage 1 through stage 4 chronic kidney disease, or unspecified chronic kidney disease; I50.9 Heart failure, unspecified; E11.22 Type 2 diabetes mellitus with diabetic chronic kidney disease; I27.29 Other secondary pulmonary hypertension; F12.10 Cannabis abuse, uncomplicated; F14.10 Cocaine abuse, uncomplicated; I42.9 Cardiomyopathy, unspecified; J44.0 Chronic obstructive pulmonary disease with (acute) lower respiratory infection; K59.00 Constipation, unspecified; N18.9 Chronic kidney disease, unspecified; Z79.82 Long term (current) use of aspirin; Z79.899 Other long term (current) drug therapy; Z71.51 Drug abuse counseling and surveillance of drug abuser; Z72.0 Tobacco use
CPT/HCPCS: 36415; 36600; 71045; 71275; 80048; 80061; 82375; 82805; 82962; 83036; 83540; 83550; 83735; 83880; 84100; 84443; 84484; 85379; 87070; 87804; 93005; 93306; 93970; 94667; 97161; 97165; 99285; C9113; J0456; J0696; J1650; J1815; J2405; J7030; J7040; J7060; J7131; J7608; J7620; Q9967

== ENCOUNTER 2019-11-26 22:20 | Emergency (ER) | payer MEDICAID ==
[~2019-11-26] VITALS: Ht 172.7 cm; Wt 86.0 kg
[~2019-11-26 22:20] MED LIST changes: -ASPI-1393 PO; +ASPI-1497 PO; +BENA10TA75 PO; -LOT10 PO
[2019-11-26] MEDS ORDERED: KETOROLAC 30MG/ML VIAL IM ONE (23:45)
[2019-11-27 00:41] LABS: CLARITY URINE TURBID (CLEAR); COLOR URINE ORANGE (YELLOW); KETONES URINE NEGATIVE (NEGATIVE); LEUKOCYTE ESTERASE URINE 3+ (NEGATIVE); NITRITE URINE NEGATIVE (NEGATIVE); OCCULT BLOOD URINE 3+ (NEGATIVE); PH URINE 7.5 (4.5-8.0); PROTEIN URINE 4+ (NEGATIVE); SPECIFIC GRAVITY URINE 1.021 (1.005-1.030)
[2019-11-27 01:37] VITALS: BP 127/81
== END 2019-11-27 01:38 | disposition home or self-care (01) ==
LOC: ER 22:20
DX: N39.0 Urinary tract infection, site not specified (principal); I11.0 Hypertensive heart disease with heart failure; I50.9 Heart failure, unspecified; J44.9 Chronic obstructive pulmonary disease, unspecified; Z79.82 Long term (current) use of aspirin; Z79.899 Other long term (current) drug therapy
CPT/HCPCS: 81003; 87086; 96372; 99283; J1885

== ENCOUNTER 2020-12-11 05:11 | Inpatient (IN) | payer MEDICAID, OTHER ==
[~2020-12-11] VITALS: Ht 172.7 cm; Wt 76.4 kg
[~2020-12-11 05:11] MED LIST changes: +AZIT500T8 MT; +P50 MT
[2020-12-11] MEDS ORDERED: NITROGLYCERIN 0.4MG TABLET SL SL PRN (05:45)
[2020-12-11 05:59] LABS: HEMATOCRIT. 40.3 % (42.0-52.0); HEMOGLOBIN. 13.1 g/dL (14.0-18.0); MEAN CORPUSCULAR HEMOGLOBIN 26.7 pg (28.0-32.0); MEAN CORPUSCULAR VOLUME 81.7 fL (80.0-94.0); MEAN PLATELET VOLUME 9.1 fl (7.4-10.4); PLATELET 299 x1000/uL (130-400); RED BLOOD CELL COUNT 4.93 mill/uL (4.7-6.1); RED CELL DISTRIBUTION WIDTH 17.3 % (11.6-14.6)
[2020-12-11 06:01] LABS: CHLORIDE 110 mEq/L (98-107)
[2020-12-11 07:05] LABS: PLATELET ESTIMATE NORMAL
[2020-12-11] MEDS ORDERED: FUROSEMIDE 100MG/10ML VIAL IVP ONE (07:15)
[2020-12-11] MEDS: MORPHINE SULFATE 2 MG/ML CPJ (NOT FOR IM USE) IV NR ×2 (09:19→09:57)
[2020-12-11] MEDS ORDERED: ACETAMINOPHEN 325MG TABLET PO PRN (13:45)
[2020-12-11] MEDS ORDERED: ONDANSETRON HCL 4MG/2ML INJ IV PRN (13:45)
[2020-12-11 14:30] VITALS: BP 113/78
[2020-12-11] MEDS: FUROSEMIDE 40MG/4ML VIAL IVP SCH ×2 (15:19→18:16)
[2020-12-11] MEDS: ENOXAPARIN 40MG/0.4ML SYR SUBCUT SCH (15:19)
[2020-12-11 15:53] LABS: CLARITY URINE CLOUDY (CLEAR); COLOR URINE YELLOW (YELLOW); KETONES URINE NEGATIVE (NEGATIVE); LEUKOCYTE ESTERASE URINE 3+ (NEGATIVE); NITRITE URINE NEGATIVE (NEGATIVE); OCCULT BLOOD URINE 2+ (NEGATIVE); PH URINE 5.5 (4.5-8.0); PROTEIN URINE TRACE (NEGATIVE); SPECIFIC GRAVITY URINE 1.007 (1.005-1.030); UROBILINOGEN URINE 0.2 E.U./dL (0.2-1.0)
[2020-12-11 16:00] VITALS: BP 123/82
[2020-12-11 16:16] VITALS: BP 113/78
[2020-12-11 16:25] LABS: *AMPHETAMINES SCREEN URINE NEGATIVE (NEGATIVE); *BARBITURATES SCREEN URINE NEGATIVE (NEGATIVE)
[2020-12-11 16:26] LABS: *BENZODIAZEPINES SCREEN URINE NEGATIVE (NEGATIVE); *COCAINE SCREEN URINE PRESUMTIVE POSITIVE (NEGATIVE); CANNABINOID URINE SCREEN PRESUMTIVE POSITIVE (NEGATIVE); METHADONE URINE SCREEN NEGATIVE (NEGATIVE); OPIATES URINE SCREEN PRESUMTIVE POSITIVE (NEGATIVE); PHENCYCLIDINE URINE SCREEN NEGATIVE (NEGATIVE)
[2020-12-11] MEDS ORDERED: HYDROCODONE/ACETAMINOPHEN 5/325MG TABLET PO PRN (18:15)
[2020-12-11 20:00] VITALS: BP 98/63
[2020-12-11] MEDS ORDERED: ATORVASTATIN CALCIUM 20MG TABLET PO SCH (21:00)
[2020-12-12] VITALS: BP 124/70
[2020-12-12 04:00] VITALS: BP 91/64
[2020-12-12] MEDS: FUROSEMIDE 40MG/4ML VIAL IVP SCH ×2 (06:16→16:48)
[2020-12-12 07:13] LABS: BASOPHILS % 0.7 % (0.0-2.0); EOSINOPHILS % 2.9 % (0.0-5.0); HEMATOCRIT. 44.8 % (42.0-52.0); HEMOGLOBIN. 14.2 g/dL (14.0-18.0); LYMPHOCYTES % 10.1 % (20.0-50.0); MEAN CORPUSCULAR HEMOGLOBIN 25.9 pg (28.0-32.0); MEAN CORPUSCULAR VOLUME 81.6 fL (80.0-94.0); MEAN PLATELET VOLUME 9.3 fl (7.4-10.4); MONOCYTES % 8.7 % (2.0-8.0); NEUTROPHILS % 77.6 % (40.0-76.0); PLATELET 312 x1000/uL (130-400); RED BLOOD CELL COUNT 5.48 mill/uL (4.7-6.1); RED CELL DISTRIBUTION WIDTH 17.3 % (11.6-14.6)
[2020-12-12 07:59] VITALS: BP 115/77
[2020-12-12] MEDS ORDERED: LOSARTAN POTASSIUM 25 MG TABLET PO SCH (09:00)
[2020-12-12] MEDS ORDERED: AMLODIPINE 10MG TABLET PO SCH (09:00)
[2020-12-12 12:00] VITALS: BP 99/68
[2020-12-12] MEDS: ENOXAPARIN 40MG/0.4ML SYR SUBCUT SCH (13:45)
[2020-12-12] MEDS ORDERED: CEFTRIAXONE 1,000 MG in DEXTROSE 5% WATER 50 ML IV SCH (14:00)
[2020-12-12 16:00] VITALS: BP 107/66
[2020-12-12] MEDS ORDERED: LEVO500T89 MT (16:18)
[2020-12-12 16:23] VITALS: BP 107/66
== END 2020-12-12 18:09 | disposition home or self-care (01) | DRG 194 ==
LOC: ER 05:11 → 5WST 10:13 → EDBEDREQTM 10:21 → EDBEDREQ 10:21 → ENRESERV 13:04 → 5WST 14:28
PROVIDERS: ADMIT Internal Medicine; ATTEND Internal Medicine
DX: I11.0 Hypertensive heart disease with heart failure (principal); E87.8 Other disorders of electrolyte and fluid balance, not elsewhere classified; E44.1 Mild protein-calorie malnutrition; I35.1 Nonrheumatic aortic (valve) insufficiency; I34.0 Nonrheumatic mitral (valve) insufficiency; I42.9 Cardiomyopathy, unspecified; E78.5 Hyperlipidemia, unspecified; F14.10 Cocaine abuse, uncomplicated; F12.10 Cannabis abuse, uncomplicated; N39.0 Urinary tract infection, site not specified; J44.9 Chronic obstructive pulmonary disease, unspecified; N17.0 Acute kidney failure with tubular necrosis; Z79.82 Long term (current) use of aspirin; Z79.84 Long term (current) use of oral hypoglycemic drugs; Z79.899 Other long term (current) drug therapy; Z68.25 Body mass index [BMI] 25.0-25.9, adult; Z71.51 Drug abuse counseling and surveillance of drug abuser; I50.21 Acute systolic (congestive) heart failure
CPT/HCPCS: 36415; 71045; 80048; 80053; 80305; 81003; 83880; 84484; 85025; 93005; 99285; J0696; J1650; J1940; J2270; J7040; J7060

== ENCOUNTER 2021-05-04 08:44 | Inpatient (IN) | payer MEDICAID, OTHER ==
[~2021-05-04] VITALS: Ht 182.9 cm; Wt 87.1 kg
[~2021-05-04 08:44] MED LIST changes: -ASPI-1497 PO; -AZIT500T8 MT; +FURO-151 MT; +LEVO500T89 MT; -P50 MT
[2021-05-04 12:16] LABS: HEMATOCRIT. 39.5 % (42.0-52.0); HEMOGLOBIN. 12.9 g/dL (14.0-18.0); MEAN CORPUSCULAR HEMOGLOBIN 25.7 pg (28.0-32.0); MEAN CORPUSCULAR VOLUME 78.8 fL (80.0-94.0); MEAN PLATELET VOLUME 9.2 fl (7.4-10.4); PLATELET 260 x1000/uL (130-400); RED BLOOD CELL COUNT 5.01 mill/uL (4.7-6.1); RED CELL DISTRIBUTION WIDTH 18.2 % (11.6-14.6)
[2021-05-04 12:22] LABS: CHLORIDE 109 mEq/L (98-107)
[2021-05-04 13:24] LABS: PLATELET ESTIMATE NORMAL
[2021-05-04] MEDS ORDERED: FUROSEMIDE 40MG/4ML VIAL IVP ONE (13:30)
[2021-05-04] MEDS ORDERED: LEVOFLOXACIN 750MG PREMIX 150 ML IV ONE (13:30)
[2021-05-04] MEDS ORDERED: ONDANSETRON HCL 4MG/2ML INJ IV PRN (14:15)
[2021-05-04] MEDS ORDERED: IPRATROPIUM/ALBUTEROL 0.5-3(2.5)MG/3ML NEB HHN PRN (14:15)
[2021-05-04] MEDS ORDERED: ACETAMINOPHEN 325MG TABLET PO PRN (14:15)
[2021-05-04] MEDS: FUROSEMIDE 40MG/4ML VIAL IVP SCH (17:56)
[2021-05-04] MEDS: HYDROCODONE/ACETAMINOPHEN 5/325MG TABLET PO PRN (22:23)
[2021-05-05] MEDS: HYDROCODONE/ACETAMINOPHEN 5/325MG TABLET PO PRN (02:24)
[2021-05-05 06:02] LABS: BASOPHILS % 1.3 % (0.0-2.0); EOSINOPHILS % 1.4 % (0.0-5.0); LYMPHOCYTES % 7.9 % (20.0-50.0); MEAN CORPUSCULAR HEMOGLOBIN 25.9 pg (28.0-32.0); MEAN PLATELET VOLUME 9.3 fl (7.4-10.4); MONOCYTES % 6.5 % (2.0-8.0); NEUTROPHILS % 82.9 % (40.0-76.0); PLATELET 279 x1000/uL (130-400); RED BLOOD CELL COUNT 5.82 mill/uL (4.7-6.1); RED CELL DISTRIBUTION WIDTH 18.4 % (11.6-14.6)
[2021-05-05 06:16] LABS: HEMOGLOBIN. 15.1 g/dL (14.0-18.0)
[2021-05-05] MEDS: FUROSEMIDE 40MG/4ML VIAL IVP SCH ×2 (08:10→17:02)
[2021-05-05 09:55] VITALS: BP 119/76
[2021-05-05 11:13] VITALS: BP 119/76
[2021-05-05 12:00] VITALS: BP 114/79
[2021-05-05 16:00] VITALS: BP 109/74
[2021-05-05] MEDS ORDERED: FURO-151 MT (16:02)
[2021-05-05] MEDS ORDERED: CARV3.1242 PO (16:03)
[2021-05-05] MEDS ORDERED: BENA10TA75 PO (16:03)
[2021-05-05 16:38] VITALS: BP 109/74
== END 2021-05-05 17:50 | disposition home or self-care (01) | DRG 194 ==
LOC: ER 08:44 → MICUSO 13:54 → EDBEDREQTM 14:04 → EDBEDREQ 14:04 → 8WST 05-05 08:50
PROVIDERS: ADMIT Internal Medicine; ATTEND Internal Medicine
DX: I13.0 Hypertensive heart and chronic kidney disease with heart failure and stage 1 through stage 4 chronic kidney disease, or unspecified chronic kidney disease (principal); N17.0 Acute kidney failure with tubular necrosis; E87.8 Other disorders of electrolyte and fluid balance, not elsewhere classified; I27.20 Pulmonary hypertension, unspecified; E44.1 Mild protein-calorie malnutrition; I50.23 Acute on chronic systolic (congestive) heart failure; I42.9 Cardiomyopathy, unspecified; D64.9 Anemia, unspecified; I35.1 Nonrheumatic aortic (valve) insufficiency; N18.9 Chronic kidney disease, unspecified; F12.90 Cannabis use, unspecified, uncomplicated; F14.90 Cocaine use, unspecified, uncomplicated; Z68.26 Body mass index [BMI] 26.0-26.9, adult; Z79.84 Long term (current) use of oral hypoglycemic drugs; Z79.899 Other long term (current) drug therapy; Z71.51 Drug abuse counseling and surveillance of drug abuser; Z87.440 Personal history of urinary (tract) infections; J44.9 Chronic obstructive pulmonary disease, unspecified
CPT/HCPCS: 36415; 71045; 80048; 80053; 83880; 84484; 85025; 93005; 99285; J1940; J1956

== ENCOUNTER 2021-07-24 09:42 | Inpatient (IN) | payer OTHER ==
[~2021-07-24] VITALS: Ht 172.7 cm; Wt 80.7 kg
[~2021-07-24 09:42] MED LIST changes: -BENA10TA75 PO; -CARV3.1242 PO; +COR3 PO; -FURO-151 PO; -LEVO500T89 MT
[2021-07-24] MEDS ORDERED: ALBUTEROL (0.083%) 2.5MG/3ML NEB HHN STA (10:02)
[2021-07-24] MEDS ORDERED: METHYLPREDNISOLONE SOD SUCC 125 MG/2 ML VIAL IV STA (10:02)
[2021-07-24] MEDS ORDERED: MAGNESIUM 2 G PREMIX 50 ML IV STA (10:02)
[2021-07-24] MEDS ORDERED: IPRATROPIUM BROMIDE (0.02%) 0.5MG/2.5ML NEB HHN STA (10:02)
[2021-07-24] MEDS ORDERED: FUROSEMIDE 40MG/4ML VIAL IVP ONE (10:15)
[2021-07-24] MEDS ORDERED: LEVOFLOXACIN 500MG PREMIX 100 ML IV ONE (10:15)
[2021-07-24 11:17] LABS: BASOPHILS % 1.3 % (0.0-2.0); EOSINOPHILS % 1.4 % (0.0-5.0); HEMATOCRIT. 41.1 % (42.0-52.0); HEMOGLOBIN. 13.3 g/dL (14.0-18.0); LYMPHOCYTES % 8.9 % (20.0-50.0); MEAN CORPUSCULAR HEMOGLOBIN 26.4 pg (28.0-32.0); MEAN CORPUSCULAR VOLUME 81.8 fL (80.0-94.0); MEAN PLATELET VOLUME 8.8 fl (7.4-10.4); MONOCYTES % 7.9 % (2.0-8.0); NEUTROPHILS % 80.5 % (40.0-76.0); PLATELET 334 x1000/uL (130-400); RED BLOOD CELL COUNT 5.03 mill/uL (4.7-6.1); RED CELL DISTRIBUTION WIDTH 17.5 % (11.6-14.6)
[2021-07-24 11:23] LABS: CHLORIDE 105 mEq/L (98-107)
[2021-07-24 11:35] LABS: INR 1.2; PROTHROMBIN TIME 12.4 sec (9.6-11.0)
[2021-07-24 11:52] LABS: CLARITY URINE TURBID (CLEAR); COLOR URINE YELLOW (YELLOW); KETONES URINE NEGATIVE (NEGATIVE); LEUKOCYTE ESTERASE URINE 3+ (NEGATIVE); NITRITE URINE NEGATIVE (NEGATIVE); OCCULT BLOOD URINE 2+ (NEGATIVE); PROTEIN URINE 3+ (NEGATIVE); SPECIFIC GRAVITY URINE 1.014 (1.005-1.030); UROBILINOGEN URINE 0.2 E.U./dL (0.2-1.0)
[2021-07-24] MEDS ORDERED: CEFTRIAXONE 1 G PREMIX 50 ML IV ONE (12:30)
[2021-07-24] MEDS ORDERED: CLONIDINE 0.1MG TABLET PO PRN (13:00)
[2021-07-24] MEDS ORDERED: ACETAMINOPHEN 325MG TABLET PO PRN (13:00)
[2021-07-24] MEDS ORDERED: IPRATROPIUM/ALBUTEROL 0.5-3(2.5)MG/3ML NEB HHN PRN (13:00)
[2021-07-24] MEDS ORDERED: DIPHENHYDRAMINE 50MG/ML VIAL IV PRN (13:00)
[2021-07-24] MEDS ORDERED: AZITHROMYCIN 500MG/250ML 250 ML IV SCH (15:00)
[2021-07-24] MEDS: FUROSEMIDE 40MG/4ML VIAL IV SCH (19:04)
[2021-07-24 23:20] VITALS: BP 119/83
[2021-07-25] VITALS (7 sets, daily range): BP systolic 101–120; BP diastolic 59–83
[2021-07-25 05:39] LABS: HEMATOCRIT. 41.3 % (42.0-52.0); HEMOGLOBIN. 13.1 g/dL (14.0-18.0); MEAN CORPUSCULAR HEMOGLOBIN 25.9 pg (28.0-32.0); MEAN CORPUSCULAR VOLUME 81.8 fL (80.0-94.0); MEAN PLATELET VOLUME 9.5 fl (7.4-10.4); PLATELET 329 x1000/uL (130-400); RED BLOOD CELL COUNT 5.05 mill/uL (4.7-6.1); RED CELL DISTRIBUTION WIDTH 17.2 % (11.6-14.6)
[2021-07-25 05:40] LABS: CHLORIDE 105 mEq/L (98-107)
[2021-07-25 05:48] LABS: LDL CHOLESTEROL 76 mg/dL (5-100)
[2021-07-25 05:50] LABS: HDL CHOLESTEROL 30 mg/dL (40-59)
[2021-07-25] MEDS: FUROSEMIDE 40MG/4ML VIAL IV SCH ×2 (06:53→17:36)
[2021-07-25] MEDS ORDERED: PNEUMOCOCCAL 23-VAL P-SAC VAC 0.5 ML IM ONE (10:00)
[2021-07-25] MEDS: CEFTRIAXONE 1,000 MG in DEXTROSE 5% WATER 50 ML IV SCH (12:57)
[2021-07-25] MEDS ORDERED: CEFTRIAXONE 1 G PREMIX 50 ML IV SCH (13:00)
[2021-07-25 13:37] LABS: PLATELET ESTIMATE NORMAL
[2021-07-25] MEDS ORDERED: AZITHROMYCIN 500MG in DEXTROSE 5% WATER 250ML IV SCH (15:00)
[2021-07-26 04:00] VITALS: BP 100/68
[2021-07-26] MEDS: FUROSEMIDE 40MG/4ML VIAL IV SCH (06:34)
[2021-07-26 07:20] LABS: BASOPHILS % 0.5 % (0.0-2.0); EOSINOPHILS % 0.4 % (0.0-5.0); HEMATOCRIT. 37.9 % (42.0-52.0); HEMOGLOBIN. 12.3 g/dL (14.0-18.0); LYMPHOCYTES % 12.7 % (20.0-50.0); MEAN CORPUSCULAR HEMOGLOBIN 26.3 pg (28.0-32.0); MEAN CORPUSCULAR VOLUME 81.2 fL (80.0-94.0); MEAN PLATELET VOLUME 9.6 fl (7.4-10.4); MONOCYTES % 6.5 % (2.0-8.0); NEUTROPHILS % 79.9 % (40.0-76.0); PLATELET 324 x1000/uL (130-400); RED BLOOD CELL COUNT 4.67 mill/uL (4.7-6.1); RED CELL DISTRIBUTION WIDTH 17.3 % (11.6-14.6)
[2021-07-26 08:00] VITALS: BP 103/87
[2021-07-26 12:00] VITALS: BP 109/76
[2021-07-26] MEDS: CEFTRIAXONE 1,000 MG in DEXTROSE 5% WATER 50 ML IV SCH (13:31)
[2021-07-26] MEDS ORDERED: NITR100C MT (13:56)
[2021-07-26] MEDS ORDERED: AZITHROMYCIN 500 MG TABLET PO SCH (15:00)
[2021-07-26 15:47] VITALS: BP 109/76
== END 2021-07-26 16:30 | disposition home or self-care (01) | DRG 145 ==
LOC: ER 09:42 → MICUSO 12:22 → EDBEDREQ 12:33 → 6WST 22:23
PROVIDERS: ADMIT Internal Medicine; ATTEND Internal Medicine
DX: J68.0 Bronchitis and pneumonitis due to chemicals, gases, fumes and vapors (principal); J96.00 Acute respiratory failure, unspecified whether with hypoxia or hypercapnia; I50.23 Acute on chronic systolic (congestive) heart failure; E78.5 Hyperlipidemia, unspecified; I42.0 Dilated cardiomyopathy; Z20.822 Contact with and (suspected) exposure to COVID-19; I13.0 Hypertensive heart and chronic kidney disease with heart failure and stage 1 through stage 4 chronic kidney disease, or unspecified chronic kidney disease; N18.9 Chronic kidney disease, unspecified; T59.91XA Toxic effect of unspecified gases, fumes and vapors, accidental (unintentional), initial encounter; N39.0 Urinary tract infection, site not specified; Z82.49 Family history of ischemic heart disease and other diseases of the circulatory system; Z91.19 Patient's noncompliance with other medical treatment and regimen; Y92.89 Other specified places as the place of occurrence of the external cause; Z23 Encounter for immunization
CPT/HCPCS: 36415; 71045; 80048; 80053; 80061; 81003; 83605; 83880; 84145; 84443; 84484; 85025; 87077; 87186; 87426; 90732; 93005; 93970; 94640; 94644; 99291; J0456; J0696; J1940; J1956; J2930; J3475; J7060

== ENCOUNTER 2021-09-10 09:05 | Inpatient (IN) | payer MEDICAID, OTHER ==
[~2021-09-10] VITALS: Ht 172.7 cm; Wt 74.4 kg
[~2021-09-10 09:05] MED LIST changes: +NITR100C MT
[2021-09-10] MEDS ORDERED: IPRATROPIUM BROMIDE (0.02%) 0.5MG/2.5ML NEB HHN STA (09:44)
[2021-09-10] MEDS ORDERED: METHYLPREDNISOLONE SOD SUCC 125 MG/2 ML VIAL IV STA (09:44)
[2021-09-10] MEDS ORDERED: ALBUTEROL (0.083%) 2.5MG/3ML NEB HHN STA (09:44)
[2021-09-10 10:03] LABS: BASOPHILS % 1.2 % (0.0-2.0); EOSINOPHILS % 1.8 % (0.0-5.0); HEMATOCRIT. 41.8 % (42.0-52.0); HEMOGLOBIN. 13.7 g/dL (14.0-18.0); LYMPHOCYTES % 13.8 % (20.0-50.0); MEAN CORPUSCULAR HEMOGLOBIN 26.7 pg (28.0-32.0); MEAN CORPUSCULAR VOLUME 81.8 fL (80.0-94.0); MEAN PLATELET VOLUME 9.1 fl (7.4-10.4); MONOCYTES % 8.7 % (2.0-8.0); NEUTROPHILS % 74.5 % (40.0-76.0); PLATELET 260 x1000/uL (130-400); RED BLOOD CELL COUNT 5.11 mill/uL (4.7-6.1); RED CELL DISTRIBUTION WIDTH 18.2 % (11.6-14.6)
[2021-09-10 10:08] LABS: CHLORIDE 112 mEq/L (98-107)
[2021-09-10 10:33] LABS: BG BASE EXCESS -0.3 mmol/L (-2.0-2.0); BG CARBOXYHEMOGLOBIN 1.5 % (0.5-1.5); BG DEOXYHEMOGLOBIN 4.4 % (0.0-5.0); BG FRACTION INSPIRED OXYGEN 21; BG HCO3 ACT 21.6 mmol/L (22.0-26.0); BG METHEMOGLOBIN 0.2 % (0.0-1.5); BG OXYGEN SATURATION 95.5 % (92.0-98.5); BG OXYHEMOGLOBIN 93.9 % (94.0-97.0); BG PCO2 28.3 mmHg (35.0-45.0); BG PH 7.501 (7.350-7.450); BG PO2 76.1 mmHg (75.0-100.0); BG SAMPLE SITE RIGHT RADIAL; BG TOTAL HEMOGLOBIN 14.1 g/dL (12.0-18.0); BG VENT MODE ROOM AIR
[2021-09-10] MEDS ORDERED: FUROSEMIDE 20MG/2ML VIAL IVP NR (11:00)
[2021-09-10] MEDS ORDERED: ACETAMINOPHEN 325MG TABLET PO PRN (15:30)
[2021-09-10] MEDS ORDERED: IPRATROPIUM/ALBUTEROL 0.5-3(2.5)MG/3ML NEB HHN PRN (15:30)
[2021-09-10] MEDS ORDERED: ONDANSETRON HCL 4MG/2ML INJ IV PRN (15:30)
[2021-09-10] MEDS: FUROSEMIDE 40MG/4ML VIAL IVP SCH (18:01)
[2021-09-10 20:37] LABS: OPIATES URINE SCREEN NEGATIVE (NEGATIVE)
[2021-09-10 20:41] LABS: *AMPHETAMINES SCREEN URINE NEGATIVE (NEGATIVE); *BARBITURATES SCREEN URINE NEGATIVE (NEGATIVE); *BENZODIAZEPINES SCREEN URINE NEGATIVE (NEGATIVE); *COCAINE SCREEN URINE PRESUMTIVE POSITIVE (NEGATIVE); CANNABINOID URINE SCREEN PRESUMTIVE POSITIVE (NEGATIVE); METHADONE URINE SCREEN NEGATIVE (NEGATIVE); PHENCYCLIDINE URINE SCREEN NEGATIVE (NEGATIVE)
[2021-09-10 22:00] VITALS: BP 121/82
[2021-09-10 22:14] VITALS: BP 121/82
[2021-09-11] VITALS (9 sets, daily range): BP systolic 93–122; BP diastolic 60–92
[2021-09-11 06:56] LABS: HEMATOCRIT. 42.4 % (42.0-52.0); HEMOGLOBIN. 13.8 g/dL (14.0-18.0); MEAN CORPUSCULAR HEMOGLOBIN 26.6 pg (28.0-32.0); MEAN CORPUSCULAR VOLUME 81.7 fL (80.0-94.0); MEAN PLATELET VOLUME 9.3 fl (7.4-10.4); PLATELET 281 x1000/uL (130-400); RED BLOOD CELL COUNT 5.19 mill/uL (4.7-6.1)
[2021-09-11] MEDS: FUROSEMIDE 40MG/4ML VIAL IVP SCH (08:45)
[2021-09-11] MEDS ORDERED: ENOXAPARIN 40MG/0.4ML SYR SUBCUT SCH (09:00)
[2021-09-11] MEDS ORDERED: DOCUSATE SODIUM 250MG CAPSULE PO SCH (12:45)
[2021-09-11] MEDS ORDERED: LACTULOSE 20G/30ML UDC PO NR (12:45)
[2021-09-11 18:00] LABS: PLATELET ESTIMATE NORMAL
== END 2021-09-11 15:26 | disposition home or self-care (01) | DRG 194 ==
LOC: ER 09:05 → 3WST 12:48 → EDBEDREQSVC 12:50 → EDBEDREQ 12:50 → EDBEDREQTM 12:50 → ENRESERV 18:49
PROVIDERS: ADMIT Internal Medicine; ATTEND Internal Medicine
PROC: 5A09357 Assistance with Respiratory Ventilation, Less than 24 Consecutive Hours, Continuous Positive Airway Pressure (ICD-10-PCS; principal; 2021-09-10)
DX: I11.0 Hypertensive heart disease with heart failure (principal); I20.1 Angina pectoris with documented spasm; F14.188 Cocaine abuse with other cocaine-induced disorder; I50.23 Acute on chronic systolic (congestive) heart failure; E78.00 Pure hypercholesterolemia, unspecified; Z20.822 Contact with and (suspected) exposure to COVID-19; J44.9 Chronic obstructive pulmonary disease, unspecified; Z87.440 Personal history of urinary (tract) infections
CPT/HCPCS: 36415; 36600; 71045; 80048; 80053; 80305; 82375; 82805; 83880; 84484; 85025; 87426; 93005; 94640; 94660; 99291; J1650; J1940; J2930

== ENCOUNTER 2021-10-29 08:56 | Emergency (ER) | payer OTHER ==
[~2021-10-29] VITALS: Ht 170.2 cm; Wt 72.6 kg
[~2021-10-29 08:56] MED LIST changes: -ASCO500T20 PO; +CEPH500T MT; -DOCU-138 PO; +LOSA25TA26 PO; -NITR100C MT; +TAMS-11 PO
[2021-10-29 09:35] LABS: BASOPHILS % 1.1 % (0.0-2.0); CLARITY URINE CLEAR (CLEAR); COLOR URINE DARK YELLOW (YELLOW); EOSINOPHILS % 2.2 % (0.0-5.0); HEMATOCRIT. 46.1 % (42.0-52.0); HEMOGLOBIN. 15.4 g/dL (14.0-18.0); KETONES URINE TRACE (NEGATIVE); LEUKOCYTE ESTERASE URINE 1+ (NEGATIVE); LYMPHOCYTES % 23.8 % (20.0-50.0); MEAN CORPUSCULAR HEMOGLOBIN 27.3 pg (28.0-32.0); MEAN CORPUSCULAR VOLUME 81.4 fL (80.0-94.0); MEAN PLATELET VOLUME 9.1 fl (7.4-10.4); MONOCYTES % 10.9 % (2.0-8.0); NITRITE URINE NEGATIVE (NEGATIVE); OCCULT BLOOD URINE 2+ (NEGATIVE); PLATELET 277 x1000/uL (130-400); PROTEIN URINE 2+ (NEGATIVE); RED BLOOD CELL COUNT 5.67 mill/uL (4.7-6.1); RED CELL DISTRIBUTION WIDTH 18.7 % (11.6-14.6); SPECIFIC GRAVITY URINE 1.018 (1.005-1.030)
[2021-10-29 09:41] LABS: CHLORIDE 103 mEq/L (98-107)
[2021-10-29 09:45] LABS: ETHANOL BLOOD < 10 mg/dL
[2021-10-29 09:48] LABS: *COCAINE SCREEN URINE PRESUMTIVE POSITIVE (NEGATIVE); METHADONE URINE SCREEN NEGATIVE (NEGATIVE)
[2021-10-29 09:49] LABS: *AMPHETAMINES SCREEN URINE NEGATIVE (NEGATIVE); *BARBITURATES SCREEN URINE NEGATIVE (NEGATIVE); *BENZODIAZEPINES SCREEN URINE NEGATIVE (NEGATIVE); CANNABINOID URINE SCREEN PRESUMTIVE POSITIVE (NEGATIVE); OPIATES URINE SCREEN NEGATIVE (NEGATIVE); PHENCYCLIDINE URINE SCREEN NEGATIVE (NEGATIVE)
[2021-10-29] MEDS ORDERED: DOCU-150 MT (11:33)
[2021-10-29] MEDS ORDERED: CEPH500C2 MT (11:33)
[2021-10-29] MEDS ORDERED: POLY119P2 MT (11:33)
[2021-10-29 12:00] VITALS: BP 124/86
== END 2021-10-29 12:20 | disposition home or self-care (01) ==
LOC: ER 09:06
DX: K59.00 Constipation, unspecified (principal); N39.0 Urinary tract infection, site not specified; F14.129 Cocaine abuse with intoxication, unspecified; I11.0 Hypertensive heart disease with heart failure; I50.9 Heart failure, unspecified; I42.9 Cardiomyopathy, unspecified; J44.9 Chronic obstructive pulmonary disease, unspecified; E78.00 Pure hypercholesterolemia, unspecified; Z87.440 Personal history of urinary (tract) infections
CPT/HCPCS: 36415; 71045; 74176; 80053; 80305; 80320; 81003; 85025; 99285; G0480

== ENCOUNTER 2021-11-02 13:34 | Emergency (ER) | payer OTHER ==
[~2021-11-02] VITALS: Ht 182.9 cm; Wt 80.0 kg
[~2021-11-02 13:34] MED LIST changes: +CEPH500C2 MT; +DOCU-150 MT; +POLY119P2 MT
[2021-11-02 15:05] LABS: CLARITY URINE CLEAR (CLEAR); COLOR URINE DARK YELLOW (YELLOW); KETONES URINE NEGATIVE (NEGATIVE); LEUKOCYTE ESTERASE URINE 2+ (NEGATIVE); NITRITE URINE NEGATIVE (NEGATIVE); OCCULT BLOOD URINE NEGATIVE (NEGATIVE); PROTEIN URINE 2+ (NEGATIVE); SPECIFIC GRAVITY URINE 1.016 (1.005-1.030)
[2021-11-02 15:10] LABS: CHLORIDE 104 mEq/L (98-107)
[2021-11-02 15:15] LABS: BASOPHILS % 0.6 % (0.0-2.0); EOSINOPHILS % 1.2 % (0.0-5.0); HEMATOCRIT. 46.9 % (42.0-52.0); HEMOGLOBIN. 14.9 g/dL (14.0-18.0); LYMPHOCYTES % 18.5 % (20.0-50.0); MEAN CORPUSCULAR HEMOGLOBIN 26.4 pg (28.0-32.0); MEAN CORPUSCULAR VOLUME 82.9 fL (80.0-94.0); MONOCYTES % 12.8 % (2.0-8.0); NEUTROPHILS % 66.9 % (40.0-76.0); PLATELET 272 x1000/uL (130-400); RED BLOOD CELL COUNT 5.66 mill/uL (4.7-6.1); RED CELL DISTRIBUTION WIDTH 18.7 % (11.6-14.6)
[2021-11-02 18:13] LABS: CLARITY URINE CLOUDY (CLEAR); COLOR URINE YELLOW (YELLOW); KETONES URINE NEGATIVE (NEGATIVE); LEUKOCYTE ESTERASE URINE 3+ (NEGATIVE); NITRITE URINE NEGATIVE (NEGATIVE); OCCULT BLOOD URINE 2+ (NEGATIVE); PROTEIN URINE 2+ (NEGATIVE); SPECIFIC GRAVITY URINE 1.017 (1.005-1.030)
[2021-11-02] MEDS ORDERED: LEVOFLOXACIN 500MG TABLET PO ONE (18:30)
[2021-11-02] MEDS ORDERED: CIPR500T5 MT (18:40)
[2021-11-02 20:00] VITALS: BP 105/89
== END 2021-11-02 20:45 | disposition home or self-care (01) ==
LOC: ER 13:39
DX: N39.0 Urinary tract infection, site not specified (principal); N28.9 Disorder of kidney and ureter, unspecified; N40.1 Benign prostatic hyperplasia with lower urinary tract symptoms; R33.8 Other retention of urine; J44.9 Chronic obstructive pulmonary disease, unspecified; E78.00 Pure hypercholesterolemia, unspecified; I11.0 Hypertensive heart disease with heart failure; I50.9 Heart failure, unspecified
CPT/HCPCS: 36415; 71045; 80053; 81003; 83880; 84484; 85025; 99285; A4315

== ENCOUNTER 2021-11-23 10:56 | Inpatient (IN) | payer OTHER ==
[~2021-11-23] VITALS: Ht 182.9 cm; Wt 79.0 kg
[~2021-11-23 10:56] MED LIST changes: +CIPR500T5 MT
[2021-11-23 11:23] LABS: HEMATOCRIT. 43.5 % (42.0-52.0); HEMOGLOBIN. 13.9 g/dL (14.0-18.0); MEAN CORPUSCULAR HEMOGLOBIN 26.5 pg (28.0-32.0); MEAN CORPUSCULAR VOLUME 82.7 fL (80.0-94.0); PLATELET 137 x1000/uL (130-400); RED BLOOD CELL COUNT 5.26 mill/uL (4.7-6.1); RED CELL DISTRIBUTION WIDTH 18.5 % (11.6-14.6)
[2021-11-23 11:27] LABS: CHLORIDE 106 mEq/L (98-107)
[2021-11-23] MEDS ORDERED: ENALAPRIL 2.5MG/2ML VIAL 2ML IV ONE (11:30)
[2021-11-23] MEDS ORDERED: FUROSEMIDE 40MG/4ML VIAL IVP ONE (11:30)
[2021-11-23] MEDS ORDERED: ENALAPRIL 1.25MG/ML VIAL 1ML IV SCH (11:30)
[2021-11-23 11:37] LABS: BG BASE EXCESS 0.3 mmol/L (-2.0-2.0); BG CARBOXYHEMOGLOBIN 1.7 % (0.5-1.5); BG DEOXYHEMOGLOBIN 0.6 % (0.0-5.0); BG FRACTION INSPIRED OXYGEN 40; BG HCO3 ACT 24.1 mmol/L (22.0-26.0); BG METHEMOGLOBIN 0.3 % (0.0-1.5); BG OXYGEN SATURATION 99.4 % (92.0-98.5); BG OXYHEMOGLOBIN 97.4 % (94.0-97.0); BG PCO2 36.6 mmHg (35.0-45.0); BG PH 7.436 (7.350-7.450); BG PO2 171.8 mmHg (75.0-100.0); BG SAMPLE SITE LEFT RADIAL; BG TOTAL HEMOGLOBIN 15.1 g/dL (12.0-18.0); BG TOTAL RESPIRATORY RATE 24 b/min; BG VENT MODE MASK - BIPAP
[2021-11-23 12:29] LABS: PLATELET ESTIMATE NORMAL
[2021-11-23] MEDS ORDERED: HYDROCODONE/ACETAMINOPHEN 10/325MG TABLET PO PRN (15:00)
[2021-11-23] MEDS ORDERED: IPRATROPIUM/ALBUTEROL 0.5-3(2.5)MG/3ML NEB HHN SCH (21:45)
[2021-11-24] VITALS (8 sets, daily range): BP systolic 110–117; BP diastolic 77–88
[2021-11-24] MEDS: IPRATROPIUM/ALBUTEROL 0.5-3(2.5)MG/3ML NEB HHN SCH ×5 (01:30→15:49)
[2021-11-24 02:04] LABS: BG BASE EXCESS -3.2 mmol/L (-2.0-2.0); BG CARBOXYHEMOGLOBIN 1.1 % (0.5-1.5); BG DEOXYHEMOGLOBIN 4.7 % (0.0-5.0); BG FRACTION INSPIRED OXYGEN 35; BG HCO3 ACT 20.5 mmol/L (22.0-26.0); BG METHEMOGLOBIN 0.2 % (0.0-1.5); BG OXYGEN SATURATION 95.2 % (92.0-98.5); BG PCO2 33.5 mmHg (35.0-45.0); BG PH 7.405 (7.350-7.450); BG PO2 78.8 mmHg (75.0-100.0); BG SAMPLE SITE RIGHT RADIAL; BG TOTAL HEMOGLOBIN 15.6 g/dL (12.0-18.0); BG VENT MODE MASK - BIPAP
[2021-11-24] MEDS ORDERED: NALOXONE HCL 0.4 MG/ML 1ML VIAL IV PRN (03:30)
[2021-11-24] MEDS ORDERED: ALBUTEROL (0.083%) 2.5MG/3ML NEB HHN PRN (04:15)
[2021-11-24] MEDS ORDERED: DOCUSATE SODIUM 250MG CAPSULE PO PRN (04:15)
[2021-11-24] MEDS ORDERED: METHYLPREDNISOLONE SOD SUCC 40 MG/ML VIAL IV SCH (05:00)
[2021-11-24] MEDS ORDERED: ALBUTEROL (0.083%) 2.5MG/3ML NEB HHN SCH (08:00)
[2021-11-24] MEDS ORDERED: ACETAMINOPHEN 325MG TABLET PO PRN (08:30)
[2021-11-24] MEDS ORDERED: HYDROCODONE/ACETAMINOPHEN 5/325MG TABLET PO PRN (08:30)
[2021-11-24] MEDS ORDERED: MAGNESIUM/ALUMINUM HYDROXIDE/SIMETHICONE 30ML UDC PO PRN (08:30)
[2021-11-24] MEDS ORDERED: ONDANSETRON HCL 4MG/2ML INJ IV PRN (08:30)
[2021-11-24] MEDS ORDERED: CLONIDINE 0.1MG TABLET PO PRN (08:30)
[2021-11-24] MEDS ORDERED: DOCUSATE SODIUM 100MG CAPSULE PO PRN (08:30)
[2021-11-24] MEDS ORDERED: LEVOFLOXACIN 500MG PREMIX 100 ML IV SCH (09:00)
[2021-11-24] MEDS ORDERED: ENOXAPARIN 30MG/0.3ML SYR SUBCUT SCH (09:00)
[2021-11-24] MEDS ORDERED: CARVEDILOL 3.125 MG TABLET PO SCH (09:00)
[2021-11-24 09:32] LABS: BG BASE EXCESS -1.7 mmol/L (-2.0-2.0); BG CARBOXYHEMOGLOBIN 0.9 % (0.5-1.5); BG DEOXYHEMOGLOBIN 12.3 % (0.0-5.0); BG HCO3 ACT 21.8 mmol/L (22.0-26.0); BG METHEMOGLOBIN 0.3 % (0.0-1.5); BG OXYGEN SATURATION 87.6 % (92.0-98.5); BG OXYHEMOGLOBIN 86.5 % (94.0-97.0); BG PCO2 33.6 mmHg (35.0-45.0); BG PO2 55.5 mmHg (75.0-100.0); BG SAMPLE SITE RIGHT RADIAL; BG TOTAL HEMOGLOBIN 15.4 g/dL (12.0-18.0); BG VENT MODE ROOM AIR
[2021-11-24] MEDS: TAMSULOSIN HCL 0.4MG SR CAPSULE PO SCH (09:37)
[2021-11-24] MEDS: FUROSEMIDE 40MG/4ML VIAL IVP SCH ×2 (09:37→21:26)
[2021-11-24] MEDS: CARVEDILOL 3.125 MG TABLET PO SCH ×2 (09:37→21:27)
[2021-11-24] MEDS: LOSARTAN POTASSIUM 50 MG TABLET PO SCH (09:37)
[2021-11-24] MEDS: ENOXAPARIN 40MG/0.4ML SYR SUBCUT SCH (09:38)
[2021-11-24] MEDS ORDERED: METHYLPREDNISOLONE SOD SUCC 125 MG/2 ML VIAL IV SCH (12:00)
[2021-11-24] MEDS: LEVOFLOXACIN 500MG PREMIX 100 ML IV SCH (12:23)
[2021-11-24] MEDS: FERROUS SULFATE 325MG TABLET PO SCH ×2 (12:24→18:06)
[2021-11-24 17:08] LABS: HEMATOCRIT. 42.7 % (42.0-52.0); HEMOGLOBIN. 13.9 g/dL (14.0-18.0); MEAN CORPUSCULAR VOLUME 82.8 fL (80.0-94.0); MEAN PLATELET VOLUME 9.9 fl (7.4-10.4); PLATELET 151 x1000/uL (130-400); RED BLOOD CELL COUNT 5.16 mill/uL (4.7-6.1); RED CELL DISTRIBUTION WIDTH 18.3 % (11.6-14.6)
[2021-11-24 17:10] LABS: CHLORIDE 105 mEq/L (98-107)
[2021-11-24 17:19] LABS: CREATINE KINASE 103 IU/L (39-308)
[2021-11-24 17:36] LABS: PLATELET ESTIMATE NORMAL
[2021-11-25] VITALS: BP 106/84
[2021-11-25] MEDS: IPRATROPIUM/ALBUTEROL 0.5-3(2.5)MG/3ML NEB HHN SCH ×4 (01:42→19:55)
[2021-11-25 04:00] VITALS: BP 125/93
[2021-11-25 05:47] LABS: CLARITY URINE CLEAR (CLEAR); COLOR URINE YELLOW (YELLOW); KETONES URINE NEGATIVE (NEGATIVE); LEUKOCYTE ESTERASE URINE NEGATIVE (NEGATIVE); NITRITE URINE NEGATIVE (NEGATIVE); OCCULT BLOOD URINE NEGATIVE (NEGATIVE); PROTEIN URINE 2+ (NEGATIVE); SPECIFIC GRAVITY URINE 1.016 (1.005-1.030)
[2021-11-25] MEDS: FERROUS SULFATE 325MG TABLET PO SCH ×3 (06:31→17:34)
[2021-11-25] MEDS ORDERED: OMEPRAZOLE 20MG CAPSULE EXTENDED RELEASE PO SCH (06:45)
[2021-11-25 07:34] LABS: BASOPHILS % 0.1 % (0.0-2.0); HEMATOCRIT. 45.7 % (42.0-52.0); HEMOGLOBIN. 14.7 g/dL (14.0-18.0); LYMPHOCYTES % 7.2 % (20.0-50.0); MEAN CORPUSCULAR HEMOGLOBIN 26.5 pg (28.0-32.0); MEAN CORPUSCULAR VOLUME 82.2 fL (80.0-94.0); MEAN PLATELET VOLUME 9.9 fl (7.4-10.4); MONOCYTES % 5.5 % (2.0-8.0); NEUTROPHILS % 87.2 % (40.0-76.0); PLATELET 168 x1000/uL (130-400); RED BLOOD CELL COUNT 5.56 mill/uL (4.7-6.1); RED CELL DISTRIBUTION WIDTH 18.8 % (11.6-14.6)
[2021-11-25 08:00] VITALS: BP 117/81
[2021-11-25 08:01] LABS: T4 FREE 1.28 ng/dL (0.76-1.46)
[2021-11-25] MEDS: CARVEDILOL 3.125 MG TABLET PO SCH (09:00)
[2021-11-25] MEDS: LOSARTAN POTASSIUM 50 MG TABLET PO SCH (09:00)
[2021-11-25] MEDS ORDERED: PREDNISONE 20MG TABLET PO SCH (09:00)
[2021-11-25 09:56] LABS: *AMPHETAMINES SCREEN URINE NEGATIVE (NEGATIVE); *BARBITURATES SCREEN URINE NEGATIVE (NEGATIVE); *BENZODIAZEPINES SCREEN URINE NEGATIVE (NEGATIVE)
[2021-11-25 09:58] LABS: *COCAINE SCREEN URINE PRESUMTIVE POSITIVE (NEGATIVE); CANNABINOID URINE SCREEN PRESUMTIVE POSITIVE (NEGATIVE); METHADONE URINE SCREEN NEGATIVE (NEGATIVE); OPIATES URINE SCREEN NEGATIVE (NEGATIVE); PHENCYCLIDINE URINE SCREEN NEGATIVE (NEGATIVE)
[2021-11-25] MEDS: TAMSULOSIN HCL 0.4MG SR CAPSULE PO SCH (10:38)
[2021-11-25] MEDS: LEVOFLOXACIN 500MG PREMIX 100 ML IV SCH (10:39)
[2021-11-25] MEDS: ENOXAPARIN 40MG/0.4ML SYR SUBCUT SCH (10:39)
[2021-11-25 12:00] VITALS: BP 124/85
[2021-11-25] MEDS: FUROSEMIDE 40MG/4ML VIAL IVP SCH (14:53)
[2021-11-25 16:00] VITALS: BP 115/85
[2021-11-25 18:46] VITALS: BP 115/85
== END 2021-11-25 20:30 | disposition home or self-care (01) | DRG 816 ==
LOC: ER 10:56 → MICUSO 12:35 → 5WST 11-24 03:10
PROVIDERS: ADMIT Internal Medicine; ATTEND Internal Medicine
PROC: 5A09357 Assistance with Respiratory Ventilation, Less than 24 Consecutive Hours, Continuous Positive Airway Pressure (ICD-10-PCS; principal; 2021-11-23)
PROC: 5A09357 Assistance with Respiratory Ventilation, Less than 24 Consecutive Hours, Continuous Positive Airway Pressure (ICD-10-PCS; 2021-11-24)
DX: T40.5X1A Poisoning by cocaine, accidental (unintentional), initial encounter (principal); J96.01 Acute respiratory failure with hypoxia; I50.23 Acute on chronic systolic (congestive) heart failure; N17.9 Acute kidney failure, unspecified; I27.20 Pulmonary hypertension, unspecified; E11.22 Type 2 diabetes mellitus with diabetic chronic kidney disease; E78.00 Pure hypercholesterolemia, unspecified; E78.5 Hyperlipidemia, unspecified; I13.0 Hypertensive heart and chronic kidney disease with heart failure and stage 1 through stage 4 chronic kidney disease, or unspecified chronic kidney disease; F12.10 Cannabis abuse, uncomplicated; E87.5 Hyperkalemia; F14.10 Cocaine abuse, uncomplicated; N40.0 Benign prostatic hyperplasia without lower urinary tract symptoms; Z20.822 Contact with and (suspected) exposure to COVID-19; F17.210 Nicotine dependence, cigarettes, uncomplicated; J68.0 Bronchitis and pneumonitis due to chemicals, gases, fumes and vapors; I34.0 Nonrheumatic mitral (valve) insufficiency; N18.9 Chronic kidney disease, unspecified; Z82.49 Family history of ischemic heart disease and other diseases of the circulatory system; Y92.89 Other specified places as the place of occurrence of the external cause; Z79.899 Other long term (current) drug therapy; Z87.440 Personal history of urinary (tract) infections; I42.0 Dilated cardiomyopathy; Z71.51 Drug abuse counseling and surveillance of drug abuser; Z71.6 Tobacco abuse counseling
CPT/HCPCS: 36415; 36600; 71045; 76770; 80048; 80053; 80061; 80305; 81003; 82375; 82550; 82553; 82805; 83735; 83880; 84145; 84439; 84443; 84484; 85025; 87426; 93005; 93306; 93970; 94640; 94660; 99291; J1650; J1940; J1956; J2920; J2930; J3490; J7512; A4315

== ENCOUNTER 2022-03-17 05:31 | Emergency (ER) | payer MEDICAID ==
[~2022-03-17] VITALS: Ht 177.8 cm; Wt 74.8 kg
[~2022-03-17 05:31] MED LIST changes: -CEPH500C2 MT; -CEPH500T MT; -CIPR500T5 MT; +FINA5TAB11 PO; -FURO-151 MT; +FURO80TA87 MT; +ONDA4TAB5 MT
[2022-03-17] MEDS ORDERED: MAGNESIUM 2 G PREMIX 50 ML IV STA (06:46)
[2022-03-17] MEDS ORDERED: ALBUTEROL (0.083%) 2.5MG/3ML NEB HHN STA (06:46)
[2022-03-17] MEDS ORDERED: IPRATROPIUM BROMIDE (0.02%) 0.5MG/2.5ML NEB HHN STA (06:46)
[2022-03-17 07:27] LABS: HEMATOCRIT. 45.9 % (42.0-52.0); HEMOGLOBIN. 14.8 g/dL (14.0-18.0); MEAN CORPUSCULAR HEMOGLOBIN 27.8 pg (28.0-32.0); MEAN CORPUSCULAR VOLUME 86.2 fL (80.0-94.0); PLATELET 200 x1000/uL (130-400); RED BLOOD CELL COUNT 5.33 mill/uL (4.7-6.1); RED CELL DISTRIBUTION WIDTH 17.8 % (11.6-14.6)
[2022-03-17 07:36] LABS: CHLORIDE 103 mEq/L (98-107)
[2022-03-17] MEDS ORDERED: LEVO750T46 PO (09:39)
[2022-03-17] MEDS ORDERED: P50 PO (09:39)
[2022-03-17 10:03] VITALS: BP 121/82
[2022-03-17 10:45] LABS: PLATELET ESTIMATE NORMAL
== END 2022-03-17 10:06 | disposition home or self-care (01) ==
LOC: ER 05:31
DX: J18.9 Pneumonia, unspecified organism (principal); J44.1 Chronic obstructive pulmonary disease with (acute) exacerbation; I11.0 Hypertensive heart disease with heart failure; I50.9 Heart failure, unspecified; Z20.822 Contact with and (suspected) exposure to COVID-19
CPT/HCPCS: 36415; 71045; 80053; 83880; 84484; 85025; 87426; 87804; 94644; 96365; 99285; C9803; J3475; Z7610

== ENCOUNTER 2022-04-26 22:18 | Inpatient (IN) | payer MEDICAID ==
[~2022-04-26] VITALS: Ht 172.7 cm; Wt 80.7 kg
[~2022-04-26 22:18] MED LIST changes: +LEVO750T46 PO; +P50 PO
[2022-04-26] MEDS ORDERED: IPRATROPIUM BROMIDE (0.02%) 0.5MG/2.5ML NEB HHN STA (22:36)
[2022-04-26] MEDS ORDERED: ALBUTEROL (0.083%) 2.5MG/3ML NEB HHN STA (22:36)
[2022-04-26] MEDS ORDERED: FUROSEMIDE 40MG/4ML VIAL IV ONE (22:45)
[2022-04-26] MEDS ORDERED: NITROGLYCERIN 0.4MG TABLET SL SL PRN (22:45)
[2022-04-26] MEDS ORDERED: ASPIRIN 81MG TABLET PO ONE (22:45)
[2022-04-26 23:13] LABS: BASOPHILS % 0.8 % (0.0-2.0); EOSINOPHILS % 2.3 % (0.0-5.0); HEMATOCRIT. 41.7 % (42.0-52.0); HEMOGLOBIN. 13.5 g/dL (14.0-18.0); MEAN CORPUSCULAR HEMOGLOBIN 27.4 pg (28.0-32.0); MEAN CORPUSCULAR VOLUME 84.8 fL (80.0-94.0); MEAN PLATELET VOLUME 9.4 fl (7.4-10.4); MONOCYTES % 11.4 % (2.0-8.0); NEUTROPHILS % 65.5 % (40.0-76.0); PLATELET 196 x1000/uL (130-400); RED BLOOD CELL COUNT 4.92 mill/uL (4.7-6.1); RED CELL DISTRIBUTION WIDTH 17.3 % (11.6-14.6)
[2022-04-26 23:17] LABS: CHLORIDE 103 mEq/L (98-107)
[2022-04-27 02:40] VITALS: BP 106/68
[2022-04-27 04:00] VITALS: BP 113/71
[2022-04-27] MEDS ORDERED: IPRATROPIUM/ALBUTEROL 0.5-3(2.5)MG/3ML NEB HHN PRN (04:45)
[2022-04-27] MEDS ORDERED: ACETAMINOPHEN 650MG/20.3ML UDC PO PRN (04:45)
[2022-04-27 05:01] LABS: BG BASE EXCESS 1.2 mmol/L (-2.0-2.0); BG DEOXYHEMOGLOBIN 3.7 % (0.0-5.0); BG FRACTION INSPIRED OXYGEN 100; BG HCO3 ACT 23.6 mmol/L (22.0-26.0); BG METHEMOGLOBIN 0.3 % (0.0-1.5); BG OXYGEN SATURATION 96.3 % (92.0-98.5); BG PCO2 31.4 mmHg (35.0-45.0); BG PH 7.494 (7.350-7.450); BG PO2 81.8 mmHg (75.0-100.0); BG SAMPLE SITE RIGHT RADIAL; BG TOTAL HEMOGLOBIN 15.3 g/dL (12.0-18.0); BG VENT MODE MASK - NRB
[2022-04-27] MEDS: ALBUTEROL 6.7GM HFA INHALER ORI PRN ×4 (05:38→23:51)
[2022-04-27 08:00] VITALS: BP 97/46
[2022-04-27] MEDS: GUAIFENESIN 600MG ER TABLET PO SCH ×2 (08:12→21:24)
[2022-04-27 12:00] VITALS: BP 102/73
[2022-04-27 16:00] VITALS: BP 109/67
[2022-04-27] MEDS ORDERED: HYDROCODONE/ACETAMINOPHEN 5/325MG TABLET PO PRN (17:15)
[2022-04-27] MEDS ORDERED: ACETAMINOPHEN 325MG TABLET PO PRN (17:15)
[2022-04-27] MEDS ORDERED: CLONIDINE 0.1MG TABLET PO PRN (17:15)
[2022-04-27] MEDS ORDERED: MAGNESIUM/ALUMINUM HYDROXIDE/SIMETHICONE 30ML UDC PO PRN (17:15)
[2022-04-27] MEDS ORDERED: DOCUSATE SODIUM 100MG CAPSULE PO PRN (17:15)
[2022-04-27] MEDS ORDERED: ONDANSETRON HCL 4MG/2ML INJ IV PRN (17:15)
[2022-04-27] MEDS ORDERED: NALOXONE HCL 0.4MG/ML VIAL IV PRN (17:30)
[2022-04-27] MEDS: DEXAMETHASONE 10 MG/ML VIAL IV SCH (17:41)
[2022-04-27] MEDS ORDERED: GUAIFENESIN-DM 200MG-20MG/10ML UDC PO PRN (18:30)
[2022-04-27] MEDS: ALBUTEROL 6.7GM HFA INHALER ORI SCH (18:30)
[2022-04-27 20:00] VITALS: BP 120/82
[2022-04-27] MEDS: CEFTRIAXONE 1,000 MG in DEXTROSE 5% WATER 50 ML IV SCH (21:24)
[2022-04-27] MEDS: CARVEDILOL 3.125 MG TABLET PO SCH (21:25)
[2022-04-27] MEDS: ENOXAPARIN 40MG/0.4ML SYR SUBCUT SCH (21:26)
[2022-04-27] MEDS: AZITHROMYCIN 500 MG in DEXT 5% WATER 250 ML IV SCH (22:49)
[2022-04-28] VITALS: BP 138/62
[2022-04-28] MEDS: ALBUTEROL 6.7GM HFA INHALER ORI SCH (00:30)
[2022-04-28] MEDS: ALBUTEROL 6.7GM HFA INHALER ORI PRN ×2 (03:59→09:37)
[2022-04-28 04:00] VITALS: BP 102/63
[2022-04-28 08:00] VITALS: BP 110/77
[2022-04-28 08:54] LABS: HEMATOCRIT. 46.6 % (42.0-52.0); HEMOGLOBIN. 15.3 g/dL (14.0-18.0); MEAN CORPUSCULAR HEMOGLOBIN 27.9 pg (28.0-32.0); MEAN CORPUSCULAR VOLUME 84.9 fL (80.0-94.0); MEAN PLATELET VOLUME 9.9 fl (7.4-10.4); PLATELET 206 x1000/uL (130-400); RED BLOOD CELL COUNT 5.48 mill/uL (4.7-6.1); RED CELL DISTRIBUTION WIDTH 17.2 % (11.6-14.6)
[2022-04-28] MEDS: LOSARTAN POTASSIUM 25 MG TABLET PO SCH (09:00)
[2022-04-28] MEDS: CARVEDILOL 3.125 MG TABLET PO SCH (09:00)
[2022-04-28] MEDS: TAMSULOSIN HCL 0.4MG SR CAPSULE PO SCH ×2 (09:00→13:03)
[2022-04-28] MEDS ORDERED: FUROSEMIDE 40MG/4 ML UDC PO SCH (09:00)
[2022-04-28 09:23] LABS: PHOSPHORUS 3.4 mg/dL (2.5-4.9); T4 FREE 1.34 ng/dL (0.76-1.46)
[2022-04-28] MEDS: GUAIFENESIN 600MG ER TABLET PO SCH ×2 (09:35→20:52)
[2022-04-28] MEDS: FERROUS SULFATE 325MG TABLET PO SCH ×3 (09:35→17:14)
[2022-04-28] MEDS: PANTOPRAZOLE SODIUM 40 MG/VIAL IV SCH ×2 (09:35→17:14)
[2022-04-28] MEDS: DEXAMETHASONE 10 MG/ML VIAL IV SCH (09:36)
[2022-04-28] MEDS: FINASTERIDE 5MG TABLET PO SCH (09:41)
[2022-04-28 12:00] VITALS: BP 107/71
[2022-04-28] MEDS: FUROSEMIDE 40MG/4ML VIAL IVP SCH ×2 (13:02→17:13)
[2022-04-28 16:00] VITALS: BP 108/75
[2022-04-28] MEDS: CEFTRIAXONE 1,000 MG in DEXTROSE 5% WATER 50 ML IV SCH (17:14)
[2022-04-28] MEDS: AZITHROMYCIN 500 MG in DEXT 5% WATER 250 ML IV SCH (18:44)
[2022-04-28 20:00] VITALS: BP 98/69
[2022-04-28 20:22] LABS: PLATELET ESTIMATE NORMAL
[2022-04-28] MEDS: ENOXAPARIN 40MG/0.4ML SYR SUBCUT SCH (20:51)
[2022-04-28 22:09] LABS: HEPATITIS B SURFACE ANTIGEN NEGATIVE
[2022-04-29] VITALS: BP 94/55
[2022-04-29 04:00] VITALS: BP 93/62
[2022-04-29 06:40] LABS: HEMATOCRIT. 40.7 % (42.0-52.0); HEMOGLOBIN. 13.4 g/dL (14.0-18.0); MEAN CORPUSCULAR HEMOGLOBIN 27.6 pg (28.0-32.0); MEAN PLATELET VOLUME 9.6 fl (7.4-10.4); PLATELET 196 x1000/uL (130-400); RED BLOOD CELL COUNT 4.84 mill/uL (4.7-6.1); RED CELL DISTRIBUTION WIDTH 16.9 % (11.6-14.6)
[2022-04-29 08:00] VITALS: BP 111/79
[2022-04-29] MEDS: LOSARTAN POTASSIUM 25 MG TABLET PO SCH (09:00)
[2022-04-29] MEDS: FERROUS SULFATE 325MG TABLET PO SCH ×3 (09:41→17:25)
[2022-04-29] MEDS: DEXAMETHASONE 10 MG/ML VIAL IV SCH (09:41)
[2022-04-29] MEDS: GUAIFENESIN 600MG ER TABLET PO SCH ×2 (09:41→21:49)
[2022-04-29] MEDS: FUROSEMIDE 40MG/4ML VIAL IVP SCH ×2 (09:41→17:25)
[2022-04-29] MEDS: FINASTERIDE 5MG TABLET PO SCH (09:41)
[2022-04-29] MEDS: PANTOPRAZOLE SODIUM 40 MG/VIAL IV SCH (09:42)
[2022-04-29 12:00] VITALS: BP 107/75
[2022-04-29] MEDS: ALBUTEROL 6.7GM HFA INHALER ORI SCH ×3 (12:30→17:41)
[2022-04-29] MEDS: BENZONATATE 100MG CAPSULE PO SCH ×2 (13:40→21:31)
[2022-04-29 14:46] LABS: PLATELET ESTIMATE NORMAL
[2022-04-29 16:00] VITALS: BP 120/83
[2022-04-29] MEDS: AZITHROMYCIN 500 MG in DEXT 5% WATER 250 ML IV SCH (17:25)
[2022-04-29] MEDS: CEFTRIAXONE 1,000 MG in DEXTROSE 5% WATER 50 ML IV SCH (17:25)
[2022-04-29 18:57] LABS: *AMPHETAMINES SCREEN URINE NEGATIVE (NEGATIVE); *BARBITURATES SCREEN URINE NEGATIVE (NEGATIVE); *BENZODIAZEPINES SCREEN URINE NEGATIVE (NEGATIVE); *COCAINE SCREEN URINE PRESUMTIVE POSITIVE (NEGATIVE); CANNABINOID URINE SCREEN PRESUMTIVE POSITIVE (NEGATIVE); METHADONE URINE SCREEN NEGATIVE (NEGATIVE); OPIATES URINE SCREEN NEGATIVE (NEGATIVE); PHENCYCLIDINE URINE SCREEN NEGATIVE (NEGATIVE)
[2022-04-29 20:00] VITALS: BP 98/73
[2022-04-29] MEDS: ENOXAPARIN 40MG/0.4ML SYR SUBCUT SCH (21:31)
[2022-04-30] VITALS: BP 96/74
[2022-04-30] MEDS: ALBUTEROL 6.7GM HFA INHALER ORI SCH ×4 (00:38→17:57)
[2022-04-30 04:00] VITALS: BP 94/59
[2022-04-30] MEDS: ALBUTEROL 6.7GM HFA INHALER ORI PRN (06:43)
[2022-04-30] MEDS: FERROUS SULFATE 325MG TABLET PO SCH ×3 (06:43→17:41)
[2022-04-30] MEDS: BENZONATATE 100MG CAPSULE PO SCH ×3 (06:43→21:40)
[2022-04-30] MEDS: FUROSEMIDE 40MG/4ML VIAL IVP SCH ×2 (06:43→17:41)
[2022-04-30 07:36] LABS: CHLORIDE 99 mEq/L (98-107)
[2022-04-30 07:38] LABS: HEMATOCRIT. 40.7 % (42.0-52.0); HEMOGLOBIN. 13.1 g/dL (14.0-18.0); MEAN CORPUSCULAR HEMOGLOBIN 27.4 pg (28.0-32.0); MEAN CORPUSCULAR VOLUME 85.2 fL (80.0-94.0); MEAN PLATELET VOLUME 9.9 fl (7.4-10.4); PLATELET 179 x1000/uL (130-400); RED BLOOD CELL COUNT 4.78 mill/uL (4.7-6.1); RED CELL DISTRIBUTION WIDTH 17.1 % (11.6-14.6)
[2022-04-30 08:00] VITALS: BP 101/76
[2022-04-30] MEDS: DEXAMETHASONE 10 MG/ML VIAL IV SCH (09:14)
[2022-04-30] MEDS: GUAIFENESIN 600MG ER TABLET PO SCH ×2 (09:15→21:40)
[2022-04-30] MEDS: LOSARTAN POTASSIUM 25 MG TABLET PO SCH (09:15)
[2022-04-30] MEDS: FAMOTIDINE 20MG/2ML VIAL IV SCH (09:16)
[2022-04-30] MEDS: FINASTERIDE 5MG TABLET PO SCH (09:16)
[2022-04-30] MEDS: TAMSULOSIN HCL 0.4MG SR CAPSULE PO SCH (09:16)
[2022-04-30 12:00] VITALS: BP 109/72
[2022-04-30 16:00] VITALS: BP 100/65
[2022-04-30] MEDS ORDERED: DEXTROSE 50% WATER 50ML SYRINGE IV PRN ×2 (17:15)
[2022-04-30] MEDS: CEFTRIAXONE 1,000 MG in DEXTROSE 5% WATER 50 ML IV SCH (17:41)
[2022-04-30] MEDS: AZITHROMYCIN 500 MG in DEXT 5% WATER 250 ML IV SCH (17:41)
[2022-04-30] MEDS: INSULIN LISPRO 100 UNITS/ML SUBCUT SCH ×2 (17:57→21:53)
[2022-04-30 20:00] VITALS: BP_SYST 115; BP_SYST 99; BP_DIAS 69; BP_DIAS 70
[2022-04-30] MEDS: ENOXAPARIN 40MG/0.4ML SYR SUBCUT SCH (21:39)
[2022-04-30] MEDS: BLOOD SUGAR DIAGNOSTIC STRIP TEST SCH (21:39)
[2022-05-01] VITALS: BP 85/55
[2022-05-01] MEDS: ALBUTEROL 6.7GM HFA INHALER ORI SCH ×3 (00:22→12:37)
[2022-05-01 04:00] VITALS: BP 85/58
[2022-05-01] MEDS: BENZONATATE 100MG CAPSULE PO SCH ×2 (05:59→12:37)
[2022-05-01] MEDS: FERROUS SULFATE 325MG TABLET PO SCH ×2 (05:59→12:35)
[2022-05-01] MEDS: FUROSEMIDE 40MG/4ML VIAL IVP SCH (05:59)
[2022-05-01] MEDS: INSULIN LISPRO 100 UNITS/ML SUBCUT SCH ×2 (06:05→12:36)
[2022-05-01] MEDS: BLOOD SUGAR DIAGNOSTIC STRIP TEST SCH ×2 (06:36→12:16)
[2022-05-01 07:32] LABS: PLATELET ESTIMATE NORMAL
[2022-05-01 08:00] VITALS: BP 101/71
[2022-05-01] MEDS: LOSARTAN POTASSIUM 25 MG TABLET PO SCH (08:29)
[2022-05-01] MEDS: FINASTERIDE 5MG TABLET PO SCH (08:42)
[2022-05-01] MEDS: FAMOTIDINE 20MG/2ML VIAL IV SCH (08:43)
[2022-05-01] MEDS: DEXAMETHASONE 10 MG/ML VIAL IV SCH (08:43)
[2022-05-01] MEDS: TAMSULOSIN HCL 0.4MG SR CAPSULE PO SCH (08:43)
[2022-05-01] MEDS: GUAIFENESIN 600MG ER TABLET PO SCH (08:43)
[2022-05-01 12:00] VITALS: BP 99/65
[2022-05-01 12:20] VITALS: BP 99/65
[2022-05-02] MEDS ORDERED: FAMOTIDINE 20MG TABLET PO SCH (09:00)
== END 2022-05-01 15:50 | disposition home or self-care (01) | DRG 720 ==
LOC: ER 22:18 → 7EST 04-27 00:35 → ENRESERV 04-27 02:03
PROVIDERS: ADMIT Internal Medicine; ATTEND Internal Medicine
DX: A41.89 Other specified sepsis (principal); J96.01 Acute respiratory failure with hypoxia; J12.82 Pneumonia due to coronavirus disease 2019; I50.23 Acute on chronic systolic (congestive) heart failure; U07.1 COVID-19; E44.0 Moderate protein-calorie malnutrition; N17.9 Acute kidney failure, unspecified; J44.0 Chronic obstructive pulmonary disease with (acute) lower respiratory infection; I13.0 Hypertensive heart and chronic kidney disease with heart failure and stage 1 through stage 4 chronic kidney disease, or unspecified chronic kidney disease; I27.29 Other secondary pulmonary hypertension; I42.0 Dilated cardiomyopathy; I34.0 Nonrheumatic mitral (valve) insufficiency; N18.9 Chronic kidney disease, unspecified; I44.7 Left bundle-branch block, unspecified; N40.0 Benign prostatic hyperplasia without lower urinary tract symptoms; E11.22 Type 2 diabetes mellitus with diabetic chronic kidney disease; E11.65 Type 2 diabetes mellitus with hyperglycemia; J44.9 Chronic obstructive pulmonary disease, unspecified; F19.10 Other psychoactive substance abuse, uncomplicated; F14.10 Cocaine abuse, uncomplicated; R74.01 Elevation of levels of liver transaminase levels; F17.210 Nicotine dependence, cigarettes, uncomplicated; F12.10 Cannabis abuse, uncomplicated; Z91.19 Patient's noncompliance with other medical treatment and regimen; Z68.27 Body mass index [BMI] 27.0-27.9, adult; Z79.899 Other long term (current) drug therapy
CPT/HCPCS: 36415; 36600; 71045; 76700; 80048; 80053; 80061; 80076; 80305; 82375; 82805; 82962; 83036; 83735; 83880; 84100; 84145; 84439; 84443; 84484; 85025; 86140; 86705; 86709; 86803; 87340; 87426; 93005; 93970; 94640; 99291; C9113; C9803; J0456; J0696; J1100; J1650; J1815; J1940; J2405; J3490; J7060

== ENCOUNTER 2022-05-31 08:37 | Inpatient (IN) | payer MEDICAID, OTHER ==
[~2022-05-31] VITALS: Ht 172.7 cm; Wt 84.8 kg
[~2022-05-31 08:37] MED LIST changes: -LEVO750T46 PO
[2022-05-31 09:21] LABS: BG BASE EXCESS 1.8 mmol/L (-2.0-2.0); BG CARBOXYHEMOGLOBIN 0.2 % (0.5-1.5); BG DEOXYHEMOGLOBIN 2.4 % (0.0-5.0); BG FRACTION INSPIRED OXYGEN 21; BG HCO3 ACT 24.8 mmol/L (22.0-26.0); BG METHEMOGLOBIN 0.3 % (0.0-1.5); BG OXYGEN SATURATION 97.6 % (92.0-98.5); BG OXYHEMOGLOBIN 97.1 % (94.0-97.0); BG PCO2 33.8 mmHg (35.0-45.0); BG PH 7.483 (7.350-7.450); BG PO2 104.7 mmHg (75.0-100.0); BG SAMPLE SITE RIGHT RADIAL; BG TOTAL HEMOGLOBIN 13.7 g/dL (12.0-18.0); BG VENT MODE ROOM AIR
[2022-05-31 09:32] LABS: BASOPHILS % 0.9 % (0.0-2.0); EOSINOPHILS % 2.8 % (0.0-5.0); HEMATOCRIT. 45.7 % (42.0-52.0); HEMOGLOBIN. 14.6 g/dL (14.0-18.0); LYMPHOCYTES % 7.9 % (20.0-50.0); MEAN CORPUSCULAR HEMOGLOBIN 27.3 pg (28.0-32.0); MEAN CORPUSCULAR VOLUME 85.4 fL (80.0-94.0); MEAN PLATELET VOLUME 9.4 fl (7.4-10.4); MONOCYTES % 12.5 % (2.0-8.0); NEUTROPHILS % 75.9 % (40.0-76.0); PLATELET 196 x1000/uL (130-400); RED BLOOD CELL COUNT 5.35 mill/uL (4.7-6.1); RED CELL DISTRIBUTION WIDTH 17.8 % (11.6-14.6)
[2022-05-31] MEDS ORDERED: MAGNESIUM 2 G PREMIX 50 ML IV STA (09:43)
[2022-05-31] MEDS ORDERED: METHYLPREDNISOLONE SOD SUCC 125 MG/2 ML VIAL IV STA (09:43)
[2022-05-31 09:44] LABS: CHLORIDE 107 mEq/L (98-107)
[2022-05-31] MEDS: ALBUTEROL (0.083%) 2.5MG/3ML NEB HHN STA ×2 (10:14→11:09)
[2022-05-31] MEDS: IPRATROPIUM BROMIDE (0.02%) 0.5MG/2.5ML NEB HHN STA ×2 (10:14→11:09)
[2022-05-31 12:00] VITALS: BP 113/80
[2022-05-31] MEDS ORDERED: BENZONATATE 100MG CAPSULE PO PRN (12:45)
[2022-05-31] MEDS ORDERED: ACETAMINOPHEN 325MG TABLET PO PRN (12:45)
[2022-05-31] MEDS ORDERED: ONDANSETRON HCL 4MG/2ML INJ IV PRN (12:45)
[2022-05-31 12:55] VITALS: BP 113/80
[2022-05-31] MEDS: FUROSEMIDE 40MG/4ML VIAL IVP SCH (13:39)
[2022-05-31] MEDS: ALBUTEROL 6.7GM HFA INHALER ORI SCH ×2 (15:36→20:34)
[2022-05-31 16:00] VITALS: BP 129/96
[2022-05-31 20:00] VITALS: BP 125/79
[2022-05-31] MEDS: CARVEDILOL 3.125 MG TABLET PO SCH (20:33)
[2022-06-01] VITALS: BP 130/90
[2022-06-01 04:00] VITALS: BP 114/86
[2022-06-01] MEDS: ALBUTEROL 6.7GM HFA INHALER ORI SCH ×4 (04:00→13:20)
[2022-06-01 08:00] VITALS: BP 105/74
[2022-06-01] MEDS: CARVEDILOL 3.125 MG TABLET PO SCH (08:37)
[2022-06-01] MEDS: FUROSEMIDE 40MG/4ML VIAL IVP SCH (08:38)
[2022-06-01] MEDS ORDERED: COR3 PO (11:59)
[2022-06-01] MEDS ORDERED: TAMS-11 PO (11:59)
[2022-06-01] MEDS ORDERED: FURO80TA87 MT (11:59)
[2022-06-01] MEDS ORDERED: FINA5TAB11 PO (11:59)
[2022-06-01] MEDS ORDERED: LOSA25TA26 PO (11:59)
[2022-06-01] MEDS ORDERED: ALBU18HF2 IH (11:59)
[2022-06-01 12:00] VITALS: BP 108/80
[2022-06-01 12:37] VITALS: BP 105/74
== END 2022-06-01 15:05 | disposition home or self-care (01) | DRG 137 ==
LOC: ER 08:50 → EDBEDREQ 10:49 → EDBEDREQTM 10:49 → ENRESERV 10:54 → 7WST 12:23
PROVIDERS: ADMIT Internal Medicine; ATTEND Internal Medicine
DX: U07.1 COVID-19 (principal); N17.0 Acute kidney failure with tubular necrosis; I50.23 Acute on chronic systolic (congestive) heart failure; E44.0 Moderate protein-calorie malnutrition; I27.20 Pulmonary hypertension, unspecified; I42.9 Cardiomyopathy, unspecified; T65.891A Toxic effect of other specified substances, accidental (unintentional), initial encounter; J68.0 Bronchitis and pneumonitis due to chemicals, gases, fumes and vapors; I13.0 Hypertensive heart and chronic kidney disease with heart failure and stage 1 through stage 4 chronic kidney disease, or unspecified chronic kidney disease; N18.9 Chronic kidney disease, unspecified; D72.819 Decreased white blood cell count, unspecified; F12.90 Cannabis use, unspecified, uncomplicated; F17.210 Nicotine dependence, cigarettes, uncomplicated; F14.90 Cocaine use, unspecified, uncomplicated; Z79.899 Other long term (current) drug therapy; Z68.28 Body mass index [BMI] 28.0-28.9, adult; Z82.49 Family history of ischemic heart disease and other diseases of the circulatory system; Y92.89 Other specified places as the place of occurrence of the external cause
CPT/HCPCS: 36415; 36600; 71045; 80053; 82375; 82805; 83880; 84484; 85025; 87426; 93005; 94644; 99285; C9803; J1940; J2930; J3475

== ENCOUNTER 2022-09-17 11:55 | Emergency (ER) | payer MEDICAID ==
[~2022-09-17] VITALS: Ht 185.4 cm; Wt 96.0 kg
[~2022-09-17 11:55] MED LIST changes: -P50 PO
[2022-09-17] MEDS ORDERED: IBUPROFEN 600MG TABLET PO STA (12:39)
[2022-09-17] MEDS ORDERED: FUROSEMIDE 40MG/4ML VIAL IVP ONE (14:15)
[2022-09-17 15:16] LABS: BASOPHILS % 1.4 % (0.0-2.0); EOSINOPHILS % 2.7 % (0.0-5.0); HEMATOCRIT. 43.7 % (42.0-52.0); HEMOGLOBIN. 14.2 g/dL (14.0-18.0); LYMPHOCYTES % 17.3 % (20.0-50.0); MEAN CORPUSCULAR HEMOGLOBIN 28.2 pg (28.0-32.0); NEUTROPHILS % 68.6 % (40.0-76.0); RED BLOOD CELL COUNT 5.03 mill/uL (4.7-6.1); RED CELL DISTRIBUTION WIDTH 17.8 % (11.6-14.6)
[2022-09-17 15:18] LABS: CHLORIDE 104 mEq/L (98-107)
[2022-09-17 15:41] VITALS: BP 108/64
[2022-09-17 16:01] LABS: MEAN PLATELET VOLUME 10.2 fl (7.4-10.4); PLATELET 164 x1000/uL (130-400)
== END 2022-09-17 16:19 | disposition home or self-care (01) ==
LOC: ER 11:55
DX: I11.0 Hypertensive heart disease with heart failure (principal); I50.9 Heart failure, unspecified; N17.9 Acute kidney failure, unspecified; J44.1 Chronic obstructive pulmonary disease with (acute) exacerbation
CPT/HCPCS: 36415; 71045; 73610; 80053; 83605; 83880; 84484; 85025; 93923; 96374; 99285; J1940

== ENCOUNTER 2022-09-26 21:15 | Inpatient (IN) | payer MEDICAID, OTHER ==
[~2022-09-26] VITALS: Ht 172.7 cm; Wt 77.2 kg
[2022-09-26] MEDS ORDERED: IPRATROPIUM BROMIDE (0.02%) 0.5MG/2.5ML NEB HHN STA (21:42)
[2022-09-26] MEDS ORDERED: FUROSEMIDE 40MG/4ML VIAL IV ONE (21:45)
[2022-09-26] MEDS ORDERED: ALBUTEROL (0.083%) 2.5MG/3ML NEB HHN SCH (22:00)
[2022-09-26 22:55] LABS: BASOPHILS % 0.9 % (0.0-2.0); EOSINOPHILS % 2.6 % (0.0-5.0); HEMATOCRIT. 45.8 % (42.0-52.0); HEMOGLOBIN. 14.9 g/dL (14.0-18.0); LYMPHOCYTES % 19.4 % (20.0-50.0); MEAN CORPUSCULAR HEMOGLOBIN 28.3 pg (28.0-32.0); MEAN CORPUSCULAR VOLUME 86.8 fL (80.0-94.0); MEAN PLATELET VOLUME 9.4 fl (7.4-10.4); MONOCYTES % 13.3 % (2.0-8.0); NEUTROPHILS % 63.8 % (40.0-76.0); PLATELET 245 x1000/uL (130-400); RED BLOOD CELL COUNT 5.28 mill/uL (4.7-6.1); RED CELL DISTRIBUTION WIDTH 17.3 % (11.6-14.6)
[2022-09-26 22:56] LABS: CHLORIDE 106 mEq/L (98-107)
[2022-09-27] MEDS ORDERED: AZITHROMYCIN 500 MG in DEXT 5% WATER 250 ML IV SCH (02:30)
[2022-09-27] MEDS ORDERED: CEFTRIAXONE 1 G PREMIX 50 ML IV ONE ×2 (02:30→05:45)
[2022-09-27] MEDS ORDERED: CEFTRIAXONE 1 G PREMIX 50 ML IV NR (05:45)
[2022-09-27] MEDS: ALBUTEROL (0.083%) 2.5MG/3ML NEB HHN SCH ×5 (08:29→08:51)
[2022-09-27] MEDS ORDERED: IPRATROPIUM BROMIDE (0.02%) 0.5MG/2.5ML NEB HHN NR (08:30)
[2022-09-27] MEDS: NITROGLYCERIN OINT 1GM/INCH UDPKT TD SCH ×3 (08:49→21:43)
[2022-09-27] MEDS ORDERED: ACETAMINOPHEN 325MG TABLET PO PRN (09:15)
[2022-09-27] MEDS ORDERED: ONDANSETRON HCL 4MG/2ML INJ IV PRN (09:15)
[2022-09-27] MEDS ORDERED: IPRATROPIUM BROMIDE (0.02%) 0.5MG/2.5ML NEB HHN PRN (09:15)
[2022-09-27] MEDS: FUROSEMIDE 100MG/10ML VIAL IVP SCH ×2 (09:26→15:50)
[2022-09-27 09:36] LABS: BG BASE EXCESS 1.1 mmol/L (-2.0-2.0); BG CARBOXYHEMOGLOBIN 1.8 % (0.5-1.5); BG DEOXYHEMOGLOBIN 0.3 % (0.0-5.0); BG FRACTION INSPIRED OXYGEN 60; BG HCO3 ACT 23.6 mmol/L (22.0-26.0); BG METHEMOGLOBIN 0.4 % (0.0-1.5); BG OXYGEN SATURATION 99.7 % (92.0-98.5); BG OXYHEMOGLOBIN 97.5 % (94.0-97.0); BG PCO2 31.8 mmHg (35.0-45.0); BG PH 7.488 (7.350-7.450); BG PO2 185.9 mmHg (75.0-100.0); BG SAMPLE SITE LEFT RADIAL; BG TOTAL HEMOGLOBIN 15.8 g/dL (12.0-18.0)
[2022-09-27 11:40] LABS: *AMPHETAMINES SCREEN URINE NEGATIVE (NEGATIVE); *BARBITURATES SCREEN URINE NEGATIVE (NEGATIVE); *BENZODIAZEPINES SCREEN URINE NEGATIVE (NEGATIVE); *COCAINE SCREEN URINE PRESUMTIVE POSITIVE (NEGATIVE); CANNABINOID URINE SCREEN PRESUMTIVE POSITIVE (NEGATIVE); METHADONE URINE SCREEN NEGATIVE (NEGATIVE); OPIATES URINE SCREEN NEGATIVE (NEGATIVE); PHENCYCLIDINE URINE SCREEN NEGATIVE (NEGATIVE)
[2022-09-27 13:30] VITALS: BP 126/78
[2022-09-27 14:00] VITALS: BP 117/77
[2022-09-27 14:30] VITALS: BP 117/77
[2022-09-27] MEDS ORDERED: KETOROLAC 15MG/ML VIAL IV NR (14:45)
[2022-09-27 16:00] VITALS: BP 127/74
[2022-09-27 20:00] VITALS: BP 114/78
[2022-09-27] MEDS: BUDESONIDE 0.5MG/2ML NEB HHN SCH (21:01)
[2022-09-27] MEDS: IPRATROPIUM/ALBUTEROL 0.5-3(2.5)MG/3ML NEB HHN SCH ×2 (21:01→23:22)
[2022-09-27] MEDS: GUAIFENESIN-DM 200MG-20MG/10ML UDC PO PRN (21:43)
[2022-09-28] VITALS: BP 118/88
[2022-09-28 04:00] VITALS: BP 120/86
[2022-09-28] MEDS: NITROGLYCERIN OINT 1GM/INCH UDPKT TD SCH ×3 (05:32→21:32)
[2022-09-28] MEDS: GUAIFENESIN-DM 200MG-20MG/10ML UDC PO PRN (05:32)
[2022-09-28 08:00] VITALS: BP 120/83
[2022-09-28] MEDS: FUROSEMIDE 100MG/10ML VIAL IVP SCH ×2 (08:34→17:15)
[2022-09-28 12:00] VITALS: BP 114/80
[2022-09-28] MEDS: IPRATROPIUM/ALBUTEROL 0.5-3(2.5)MG/3ML NEB HHN SCH ×2 (14:58→21:24)
[2022-09-28 16:00] VITALS: BP 105/81
[2022-09-28] MEDS: PREDNISONE 20MG TABLET PO SCH (17:15)
[2022-09-28 20:00] VITALS: BP 111/73
[2022-09-28] MEDS: BUDESONIDE 0.5MG/2ML NEB HHN SCH (21:21)
[2022-09-29] VITALS: BP 110/71
[2022-09-29] MEDS: IPRATROPIUM/ALBUTEROL 0.5-3(2.5)MG/3ML NEB HHN SCH ×2 (02:30→09:03)
[2022-09-29 04:00] VITALS: BP 101/63
[2022-09-29] MEDS: PREDNISONE 20MG TABLET PO SCH (06:00)
[2022-09-29] MEDS: NITROGLYCERIN OINT 1GM/INCH UDPKT TD SCH (06:00)
[2022-09-29 07:16] LABS: HEMATOCRIT. 42.6 % (42.0-52.0); MEAN CORPUSCULAR HEMOGLOBIN 28.1 pg (28.0-32.0); MEAN CORPUSCULAR VOLUME 85.6 fL (80.0-94.0); MEAN PLATELET VOLUME 9.5 fl (7.4-10.4); PLATELET 181 x1000/uL (130-400); RED BLOOD CELL COUNT 4.97 mill/uL (4.7-6.1)
[2022-09-29 08:00] VITALS: BP 101/65
[2022-09-29] MEDS ORDERED: ASPIRIN 81MG EC TABLET PO SCH (09:00)
[2022-09-29] MEDS: BUDESONIDE 0.5MG/2ML NEB HHN SCH (09:03)
[2022-09-29] MEDS: FUROSEMIDE 100MG/10ML VIAL IVP SCH (09:44)
[2022-09-29] MEDS ORDERED: P20 PO (10:45)
[2022-09-29] MEDS ORDERED: ALBU18HF2 IH (10:45)
[2022-09-29 11:59] VITALS: BP 114/80
[2022-09-29 12:00] VITALS: BP 114/80
[2022-09-29 17:21] LABS: PLATELET ESTIMATE NORMAL
== END 2022-09-29 13:11 | disposition home or self-care (01) | DRG 133 ==
LOC: ER 21:15 → MICUSO 09-27 02:26 → 7EST 09-27 13:44
PROVIDERS: ADMIT Internal Medicine; ATTEND Internal Medicine
DX: J96.01 Acute respiratory failure with hypoxia (principal); N17.0 Acute kidney failure with tubular necrosis; I50.23 Acute on chronic systolic (congestive) heart failure; E44.1 Mild protein-calorie malnutrition; I27.29 Other secondary pulmonary hypertension; E88.09 Other disorders of plasma-protein metabolism, not elsewhere classified; I42.9 Cardiomyopathy, unspecified; I13.0 Hypertensive heart and chronic kidney disease with heart failure and stage 1 through stage 4 chronic kidney disease, or unspecified chronic kidney disease; E11.22 Type 2 diabetes mellitus with diabetic chronic kidney disease; Z20.822 Contact with and (suspected) exposure to COVID-19; F14.10 Cocaine abuse, uncomplicated; N18.9 Chronic kidney disease, unspecified; F10.10 Alcohol abuse, uncomplicated; F12.10 Cannabis abuse, uncomplicated; F17.210 Nicotine dependence, cigarettes, uncomplicated; I08.0 Rheumatic disorders of both mitral and aortic valves; I44.7 Left bundle-branch block, unspecified; J44.9 Chronic obstructive pulmonary disease, unspecified; Z86.16 Personal history of COVID-19; Z79.82 Long term (current) use of aspirin
CPT/HCPCS: 36415; 36600; 71045; 76604; 80048; 80053; 80305; 82375; 82805; 83880; 84484; 85025; 87426; 93005; 93306; 93880; 94640; 94644; 99285; J0456; J0696; J1885; J1940; J7060; J7512; J7626

== ENCOUNTER 2022-11-11 13:02 | Emergency (ER) | payer MEDICAID, OTHER ==
[~2022-11-11] VITALS: Ht 172.7 cm; Wt 82.0 kg
[~2022-11-11 13:02] MED LIST changes: +P20 PO
[2022-11-11] MEDS ORDERED: PREDNISONE 20MG TABLET PO STA (14:25)
[2022-11-11] MEDS ORDERED: IPRATROPIUM BROMIDE (0.02%) 0.5MG/2.5ML NEB HHN STA (14:25)
[2022-11-11] MEDS ORDERED: ALBUTEROL (0.083%) 2.5MG/3ML NEB HHN STA (14:25)
[2022-11-11] MEDS ORDERED: AZITHROMYCIN 500 MG TABLET PO ONE (14:30)
[2022-11-11 15:39] LABS: BG BASE EXCESS -1.1 mmol/L (-2.0-2.0); BG CARBOXYHEMOGLOBIN 1.1 % (0.5-1.5); BG DEOXYHEMOGLOBIN 1.4 % (0.0-5.0); BG FRACTION INSPIRED OXYGEN 28; BG HCO3 ACT 21.9 mmol/L (22.0-26.0); BG METHEMOGLOBIN 0.4 % (0.0-1.5); BG OXYGEN SATURATION 98.6 % (92.0-98.5); BG OXYHEMOGLOBIN 97.1 % (94.0-97.0); BG PCO2 32.5 mmHg (35.0-45.0); BG PH 7.447 (7.350-7.450); BG PO2 118.2 mmHg (75.0-100.0); BG SAMPLE SITE RIGHT RADIAL; BG TOTAL HEMOGLOBIN 16.2 g/dL (12.0-18.0); BG VENT MODE NASAL CANNULA
[2022-11-11] MEDS ORDERED: ALBUTEROL (0.083%) 2.5MG/3ML NEB ONE (16:22)
[2022-11-11] MEDS ORDERED: IPRATROPIUM BROMIDE (0.02%) 0.5MG/2.5ML NEB ONE (16:22)
[2022-11-11 16:51] LABS: BASOPHILS % 0.8 % (0.0-2.0); EOSINOPHILS % 0.3 % (0.0-5.0); HEMATOCRIT. 50.1 % (42.0-52.0); LYMPHOCYTES % 14.6 % (20.0-50.0); MEAN CORPUSCULAR HEMOGLOBIN 27.2 pg (28.0-32.0); MEAN CORPUSCULAR VOLUME 85.2 fL (80.0-94.0); MEAN PLATELET VOLUME 9.2 fl (7.4-10.4); MONOCYTES % 9.4 % (2.0-8.0); NEUTROPHILS % 74.9 % (40.0-76.0); PLATELET 207 x1000/uL (130-400); RED BLOOD CELL COUNT 5.88 mill/uL (4.7-6.1); RED CELL DISTRIBUTION WIDTH 17.8 % (11.6-14.6)
[2022-11-11] MEDS ORDERED: PREDNISONE 20MG TABLET PO SCH (17:00)
[2022-11-11] MEDS ORDERED: AZITHROMYCIN 500 MG TABLET PO SCH (17:00)
[2022-11-11 17:17] LABS: CHLORIDE 106 mEq/L (98-107)
[2022-11-11] MEDS ORDERED: P50 MT (18:49)
[2022-11-11] MEDS ORDERED: AZIT250T12 MT (18:49)
[2022-11-11 19:09] VITALS: BP 119/87
== END 2022-11-11 19:34 | disposition home or self-care (01) ==
LOC: ER 13:02
DX: J44.1 Chronic obstructive pulmonary disease with (acute) exacerbation (principal); I11.0 Hypertensive heart disease with heart failure; I50.9 Heart failure, unspecified; Z20.822 Contact with and (suspected) exposure to COVID-19
CPT/HCPCS: 36415; 36600; 71045; 80053; 82375; 82805; 83880; 85025; 87426; 87804; 93005; 94640; 99285; C9803; J7512; Z7610

== ENCOUNTER 2022-11-13 10:54 | Inpatient (IN) | payer MEDICAID, OTHER ==
[~2022-11-13] VITALS: Ht 172.7 cm; Wt 78.5 kg
[~2022-11-13 10:54] MED LIST changes: +AZIT250T12 MT; +P50 MT
[2022-11-13 12:12] LABS: HEMATOCRIT. 50.9 % (42.0-52.0); HEMOGLOBIN. 16.2 g/dL (14.0-18.0); MEAN CORPUSCULAR HEMOGLOBIN 27.2 pg (28.0-32.0); MEAN CORPUSCULAR VOLUME 85.3 fL (80.0-94.0); MEAN PLATELET VOLUME 9.2 fl (7.4-10.4); PLATELET 194 x1000/uL (130-400); RED BLOOD CELL COUNT 5.96 mill/uL (4.7-6.1); RED CELL DISTRIBUTION WIDTH 17.7 % (11.6-14.6)
[2022-11-13 12:19] LABS: CHLORIDE 102 mEq/L (98-107)
[2022-11-13 12:28] LABS: ETHANOL BLOOD < 10 mg/dL
[2022-11-13 12:58] LABS: PLATELET ESTIMATE NORMAL
[2022-11-13] MEDS ORDERED: NITROGLYCERIN 0.4MG TABLET SL SL PRN (13:00)
[2022-11-13] MEDS ORDERED: ASPIRIN 81MG TABLET PO ONE (13:00)
[2022-11-13] MEDS ORDERED: FUROSEMIDE 40MG/4ML VIAL IV ONE (13:00)
[2022-11-13 13:23] LABS: *AMPHETAMINES SCREEN URINE NEGATIVE (NEGATIVE); *BARBITURATES SCREEN URINE NEGATIVE (NEGATIVE); *BENZODIAZEPINES SCREEN URINE NEGATIVE (NEGATIVE); *COCAINE SCREEN URINE PRESUMTIVE POSITIVE (NEGATIVE); CANNABINOID URINE SCREEN PRESUMTIVE POSITIVE (NEGATIVE); METHADONE URINE SCREEN NEGATIVE (NEGATIVE); OPIATES URINE SCREEN NEGATIVE (NEGATIVE); PHENCYCLIDINE URINE SCREEN NEGATIVE (NEGATIVE)
[2022-11-13 13:24] LABS: BG BASE EXCESS -4.6 mmol/L (-2.0-2.0); BG CARBOXYHEMOGLOBIN 1.4 % (0.5-1.5); BG DEOXYHEMOGLOBIN 1.3 % (0.0-5.0); BG HCO3 ACT 15.7 mmol/L (22.0-26.0); BG METHEMOGLOBIN 0.4 % (0.0-1.5); BG OXYGEN SATURATION 98.7 % (92.0-98.5); BG OXYHEMOGLOBIN 96.9 % (94.0-97.0); BG PCO2 20.9 mmHg (35.0-45.0); BG PH 7.494 (7.350-7.450); BG PO2 131.1 mmHg (75.0-100.0); BG SAMPLE SITE RIGHT RADIAL; BG VENT MODE NASAL CANNULA
[2022-11-13] MEDS ORDERED: ALBUTEROL (0.083%) 2.5MG/3ML NEB INH PRN (19:15)
[2022-11-13] MEDS ORDERED: AZITHROMYCIN 250 MG TABLET PO SCH (19:15)
[2022-11-13 20:00] VITALS: BP 111/85
[2022-11-13] MEDS: FUROSEMIDE 40MG/4ML VIAL IVP SCH (20:21)
[2022-11-13] MEDS: CARVEDILOL 3.125 MG TABLET PO SCH (20:21)
[2022-11-13] MEDS ORDERED: FUROSEMIDE 40MG TABLET PO SCH (21:00)
[2022-11-13] MEDS ORDERED: CARVEDILOL 3.125 MG TABLET PO SCH (21:00)
[2022-11-14] VITALS: BP 116/64
[2022-11-14 04:00] VITALS: BP 108/80
[2022-11-14 08:00] VITALS: BP 109/83
[2022-11-14 08:04] LABS: HEMATOCRIT 51.4 % (42.0-52.0); HEMOGLOBIN 16.7 g/dL (14.0-18.0); MEAN CORPUSCULAR HEMOGLOBIN 27.4 pg (28.0-32.0); MEAN CORPUSCULAR VOLUME 84.4 fL (80.0-94.0); PLATELET 208 x1000/uL (130-400); RED BLOOD CELL COUNT 6.09 mill/uL (4.7-6.1); RED CELL DISTRIBUTION WIDTH 17.6 % (11.6-14.6)
[2022-11-14] MEDS ORDERED: PREDNISONE 20MG TABLET PO SCH (08:10)
[2022-11-14] MEDS: LOSARTAN POTASSIUM 25 MG TABLET PO SCH (09:00)
[2022-11-14] MEDS: CARVEDILOL 3.125 MG TABLET PO SCH ×2 (09:00→20:49)
[2022-11-14] MEDS: FUROSEMIDE 40MG/4ML VIAL IVP SCH ×2 (09:06→17:19)
[2022-11-14] MEDS: FINASTERIDE 5MG TABLET PO SCH (09:07)
[2022-11-14] MEDS: TAMSULOSIN HCL 0.4MG SR CAPSULE PO SCH (09:07)
[2022-11-14] MEDS: DOCUSATE SODIUM 100MG CAPSULE PO SCH (09:08)
[2022-11-14] MEDS: FERROUS SULFATE 325MG TABLET PO SCH ×3 (09:08→17:19)
[2022-11-14] MEDS: ENOXAPARIN 40MG/0.4ML SYR SUBCUT SCH (09:08)
[2022-11-14 12:00] VITALS: BP 110/80
[2022-11-14 16:00] VITALS: BP 101/75
[2022-11-14] MEDS: PANTOPRAZOLE SODIUM 40 MG/VIAL IV SCH (17:19)
[2022-11-14 20:00] VITALS: BP 105/75
[2022-11-15] VITALS (7 sets, daily range): BP systolic 98–115; BP diastolic 62–85
[2022-11-15 06:01] LABS: BASOPHILS % 0.4 % (0.0-2.0); EOSINOPHILS % 0.3 % (0.0-5.0); HEMATOCRIT. 48.9 % (42.0-52.0); HEMOGLOBIN. 15.9 g/dL (14.0-18.0); LYMPHOCYTES % 10.4 % (20.0-50.0); MEAN CORPUSCULAR HEMOGLOBIN 27.4 pg (28.0-32.0); MEAN CORPUSCULAR VOLUME 84.4 fL (80.0-94.0); MEAN PLATELET VOLUME 9.3 fl (7.4-10.4); NEUTROPHILS % 77.9 % (40.0-76.0); PLATELET 199 x1000/uL (130-400); RED BLOOD CELL COUNT 5.79 mill/uL (4.7-6.1)
[2022-11-15] MEDS: PANTOPRAZOLE SODIUM 40 MG/VIAL IV SCH (09:09)
[2022-11-15] MEDS: ENOXAPARIN 40MG/0.4ML SYR SUBCUT SCH (09:10)
[2022-11-15] MEDS: FUROSEMIDE 40MG/4ML VIAL IVP SCH ×2 (09:10→17:00)
[2022-11-15] MEDS: CARVEDILOL 3.125 MG TABLET PO SCH (09:11)
[2022-11-15] MEDS: DOCUSATE SODIUM 100MG CAPSULE PO SCH (09:11)
[2022-11-15] MEDS: FINASTERIDE 5MG TABLET PO SCH (09:11)
[2022-11-15] MEDS: FERROUS SULFATE 325MG TABLET PO SCH ×3 (09:11→17:38)
[2022-11-15] MEDS: TAMSULOSIN HCL 0.4MG SR CAPSULE PO SCH (09:11)
[2022-11-15] MEDS: LOSARTAN POTASSIUM 25 MG TABLET PO SCH (09:12)
[2022-11-15] MEDS ORDERED: COR3 PO (12:46)
[2022-11-15] MEDS ORDERED: TAMS-11 PO (12:46)
[2022-11-15] MEDS ORDERED: FURO80TA87 MT (12:46)
[2022-11-15] MEDS ORDERED: LOSA25TA26 PO (12:46)
[2022-11-15] MEDS ORDERED: FINA5TAB11 PO (13:07)
[2022-11-16] VITALS: BP 106/67
[2022-11-16 04:00] VITALS: BP 106/57
[2022-11-16 06:12] LABS: BASOPHILS % 0.4 % (0.0-2.0); EOSINOPHILS % 1.7 % (0.0-5.0); HEMATOCRIT. 45.8 % (42.0-52.0); LYMPHOCYTES % 14.4 % (20.0-50.0); MEAN CORPUSCULAR HEMOGLOBIN 27.2 pg (28.0-32.0); MEAN CORPUSCULAR VOLUME 83.3 fL (80.0-94.0); MEAN PLATELET VOLUME 9.8 fl (7.4-10.4); MONOCYTES % 11.3 % (2.0-8.0); NEUTROPHILS % 72.2 % (40.0-76.0); PLATELET 202 x1000/uL (130-400); RED CELL DISTRIBUTION WIDTH 17.8 % (11.6-14.6)
[2022-11-16 08:00] VITALS: BP 110/85
[2022-11-16] MEDS: PANTOPRAZOLE SODIUM 40 MG/VIAL IV SCH (09:12)
[2022-11-16] MEDS: FUROSEMIDE 40MG/4ML VIAL IVP SCH (09:12)
[2022-11-16] MEDS: DOCUSATE SODIUM 100MG CAPSULE PO SCH (09:13)
[2022-11-16] MEDS: FINASTERIDE 5MG TABLET PO SCH (09:13)
[2022-11-16] MEDS: FERROUS SULFATE 325MG TABLET PO SCH ×2 (09:13→12:29)
[2022-11-16] MEDS: LOSARTAN POTASSIUM 25 MG TABLET PO SCH (09:14)
[2022-11-16] MEDS: TAMSULOSIN HCL 0.4MG SR CAPSULE PO SCH (09:14)
[2022-11-16] MEDS: ENOXAPARIN 40MG/0.4ML SYR SUBCUT SCH (09:15)
[2022-11-17] MEDS ORDERED: FAMOTIDINE 20MG/2ML VIAL IV SCH (09:00)
== END 2022-11-16 13:00 | disposition home or self-care (01) | DRG 194 ==
LOC: ER 10:54 → 7WST 14:19 → EDBEDREQ 14:22 → EDBEDREQTM 14:22 → EDBEDREQ 14:23
PROVIDERS: ADMIT Internal Medicine; ATTEND Internal Medicine
DX: I13.0 Hypertensive heart and chronic kidney disease with heart failure and stage 1 through stage 4 chronic kidney disease, or unspecified chronic kidney disease (principal); N17.9 Acute kidney failure, unspecified; I42.0 Dilated cardiomyopathy; E11.22 Type 2 diabetes mellitus with diabetic chronic kidney disease; I50.23 Acute on chronic systolic (congestive) heart failure; F14.10 Cocaine abuse, uncomplicated; J44.9 Chronic obstructive pulmonary disease, unspecified; N18.9 Chronic kidney disease, unspecified; I35.1 Nonrheumatic aortic (valve) insufficiency; E78.5 Hyperlipidemia, unspecified; N40.0 Benign prostatic hyperplasia without lower urinary tract symptoms; R79.89 Other specified abnormal findings of blood chemistry; F17.210 Nicotine dependence, cigarettes, uncomplicated; Z79.899 Other long term (current) drug therapy
CPT/HCPCS: 36415; 36600; 70360; 71045; 80048; 80053; 80305; 80320; 82375; 82805; 83880; 84484; 85025; 85027; 87426; 93005; 99291; C9113; C9803; J1650; J1940; A4315; G0480

== ENCOUNTER 2023-03-10 13:30 | Inpatient (IN) | payer MEDICAID, OTHER ==
[~2023-03-10] VITALS: Ht 172.7 cm; Wt 84.5 kg
[~2023-03-10 13:30] MED LIST changes: -AZIT250T12 MT; +LIDOCAINE HCL/PF 1% 2ML VIAL ONE; -P20 PO; -P50 MT
[2023-03-10] MEDS ORDERED: METHYLPREDNISOLONE SOD SUCC 125 MG/2 ML VIAL IV STA (13:54)
[2023-03-10] MEDS ORDERED: IPRATROPIUM BROMIDE (0.02%) 0.5MG/2.5ML NEB HHN STA (13:54)
[2023-03-10 14:08] VITALS: PULSE 85; RESP 20; O2SAT 95
[2023-03-10] MEDS: ALBUTEROL (0.083%) 2.5MG/3ML NEB HHN SCH ×3 (14:11→15:00)
[2023-03-10 14:24] LABS: HEMATOCRIT. 45.1 % (42.0-52.0); HEMOGLOBIN. 14.7 g/dL (14.0-18.0); MEAN CORPUSCULAR VOLUME 89.1 fL (80.0-94.0); MEAN PLATELET VOLUME 8.9 fl (7.4-10.4); PLATELET 251 x1000/uL (130-400); RED BLOOD CELL COUNT 5.06 mill/uL (4.7-6.1); RED CELL DISTRIBUTION WIDTH 19.3 % (11.6-14.6)
[2023-03-10 14:33] LABS: CHLORIDE 111 mEq/L (98-107)
[2023-03-10 14:44] VITALS: PULSE 78; RESP 22; O2SAT 98
[2023-03-10 14:56] LABS: BG BASE EXCESS -3.6 mmol/L (-2.0-2.0); BG CARBOXYHEMOGLOBIN 1.7 % (0.5-1.5); BG FRACTION INSPIRED OXYGEN 50; BG HCO3 ACT 18.8 mmol/L (22.0-26.0); BG METHEMOGLOBIN 0.5 % (0.0-1.5); BG OXYHEMOGLOBIN 96.8 % (94.0-97.0); BG PCO2 27.7 mmHg (35.0-45.0); BG PO2 147.1 mmHg (75.0-100.0); BG SAMPLE SITE RIGHT RADIAL; BG TOTAL HEMOGLOBIN 14.8 g/dL (12.0-18.0); BG TOTAL RESPIRATORY RATE 24 b/min; BG VENT MODE HNNEB
[2023-03-10 15:00] VITALS: PULSE 76; RESP 22; O2SAT 99
[2023-03-10] MEDS ORDERED: FUROSEMIDE 40MG/4ML VIAL IVP ONE (15:15)
[2023-03-10 15:36] LABS: PLATELET ESTIMATE NORMAL
[2023-03-10] MEDS ORDERED: CEFTRIAXONE 2GM/50ML (ADDEASE) 50 ML IV ONE (17:00)
[2023-03-10] MEDS ORDERED: AZITHROMYCIN 500MG/250ML 250 ML IV ONE (17:00)
[2023-03-10 18:00] VITALS: BP 123/88; PULSE 84; RESP 20; TEMP 96.8
[2023-03-10] MEDS ORDERED: CEFTRIAXONE 2 G in DEXTROSE 5% WATER 50 ML IV NR (18:00)
[2023-03-10 20:00] VITALS: BP 127/87; PULSE 86; RESP 20; TEMP 97.5
[2023-03-10] MEDS ORDERED: FURO40TA5 PO (21:46)
[2023-03-10] MEDS ORDERED: METH-773 MT (21:46)
[2023-03-10] MEDS ORDERED: ALBU6.7H3 INH (21:46)
[2023-03-10] MEDS ORDERED: ASPI-1497 PO (21:46)
[2023-03-10] MEDS ORDERED: LISI2.5T47 PO (21:46)
[2023-03-10] MEDS ORDERED: AMLO10TA80 PO (21:46)
[2023-03-10] MEDS ORDERED: ONDANSETRON HCL 4MG/2ML INJ IV PRN (22:15)
[2023-03-10] MEDS ORDERED: IPRATROPIUM/ALBUTEROL 0.5-3(2.5)MG/3ML NEB HHN PRN (22:15)
[2023-03-10] MEDS ORDERED: ACETAMINOPHEN 325MG TABLET PO PRN (22:15)
[2023-03-10] MEDS ORDERED: HYDROCODONE/ACETAMINOPHEN 5/325MG TABLET PO PRN (22:24)
[2023-03-11] VITALS (7 sets, daily range): BP systolic 99–123; BP diastolic 61–88; PULSE 82–95; RESP 18–20; TEMP 96.9–97.9; O2SAT 99
[2023-03-11 04:06] LABS: *AMPHETAMINES SCREEN URINE NEGATIVE (NEGATIVE); *BARBITURATES SCREEN URINE NEGATIVE (NEGATIVE); *BENZODIAZEPINES SCREEN URINE NEGATIVE (NEGATIVE); *COCAINE SCREEN URINE PRESUMTIVE POSITIVE (NEGATIVE); CANNABINOID URINE SCREEN PRESUMTIVE POSITIVE (NEGATIVE); METHADONE URINE SCREEN NEGATIVE (NEGATIVE); OPIATES URINE SCREEN NEGATIVE (NEGATIVE); PHENCYCLIDINE URINE SCREEN NEGATIVE (NEGATIVE)
[2023-03-11 07:22] LABS: BASOPHILS % 0.3 % (0.0-2.0); HEMOGLOBIN. 13.9 g/dL (14.0-18.0); LYMPHOCYTES % 7.4 % (20.0-50.0); MEAN CORPUSCULAR VOLUME 87.9 fL (80.0-94.0); MEAN PLATELET VOLUME 9.3 fl (7.4-10.4); MONOCYTES % 3.3 % (2.0-8.0); PLATELET 226 x1000/uL (130-400); RED BLOOD CELL COUNT 4.78 mill/uL (4.7-6.1); RED CELL DISTRIBUTION WIDTH 18.3 % (11.6-14.6)
[2023-03-11 07:50] LABS: CHLORIDE 108 mEq/L (98-107)
[2023-03-11 08:03] LABS: HDL CHOLESTEROL 32 mg/dL (40-59); LDL CHOLESTEROL 58 mg/dL (5-100)
[2023-03-11] MEDS: FUROSEMIDE 40MG/4ML VIAL IVP SCH ×2 (09:00→20:29)
[2023-03-11] MEDS: ENOXAPARIN 40MG/0.4ML SYR SUBCUT SCH (09:15)
[2023-03-11] MEDS ORDERED: AZITHROMYCIN 500 MG in DEXT 5% WATER 250 ML IV SCH (17:00)
[2023-03-11] MEDS ORDERED: CEFTRIAXONE 1,000 MG in DEXTROSE 5% WATER 50 ML IV SCH (20:00)
[2023-03-11] MEDS: FLUTICASONE PROPIONATE 50MCG/SPRAY BOTTLE BOTHNSTRLS SCH (20:30)
[2023-03-11] MEDS: IPRATROPIUM/ALBUTEROL 0.5-3(2.5)MG/3ML NEB HHN SCH (20:34)
[2023-03-11] MEDS: BUDESONIDE 0.5MG/2ML NEB HHN SCH (20:34)
[2023-03-11] MEDS ORDERED: LORAZEPAM 1MG TABLET PO PRN (22:00)
[2023-03-12] VITALS (8 sets, daily range): BP systolic 103–111; BP diastolic 73–83; PULSE 60–96; RESP 18–20; TEMP 97.3–98; O2SAT 96–98
[2023-03-12] MEDS: IPRATROPIUM/ALBUTEROL 0.5-3(2.5)MG/3ML NEB HHN SCH ×2 (02:13→09:12)
[2023-03-12] MEDS: ENOXAPARIN 40MG/0.4ML SYR SUBCUT SCH (08:37)
[2023-03-12] MEDS: FLUTICASONE PROPIONATE 50MCG/SPRAY BOTTLE BOTHNSTRLS SCH (08:37)
[2023-03-12] MEDS: FUROSEMIDE 40MG/4ML VIAL IVP SCH (08:37)
[2023-03-12] MEDS: BUDESONIDE 0.5MG/2ML NEB HHN SCH (09:12)
[2023-03-12] MEDS ORDERED: AZITHROMYCIN 500 MG TABLET PO SCH (17:00)
== END 2023-03-12 16:25 | disposition home or self-care (01) | DRG 139 ==
LOC: ER 13:30 → 7WST 18:23
PROVIDERS: ADMIT Internal Medicine; ATTEND Internal Medicine
DX: J18.9 Pneumonia, unspecified organism (principal); J96.01 Acute respiratory failure with hypoxia; I50.21 Acute systolic (congestive) heart failure; I27.29 Other secondary pulmonary hypertension; I42.0 Dilated cardiomyopathy; I13.0 Hypertensive heart and chronic kidney disease with heart failure and stage 1 through stage 4 chronic kidney disease, or unspecified chronic kidney disease; J44.0 Chronic obstructive pulmonary disease with (acute) lower respiratory infection; N18.9 Chronic kidney disease, unspecified; N40.0 Benign prostatic hyperplasia without lower urinary tract symptoms; E11.22 Type 2 diabetes mellitus with diabetic chronic kidney disease; F12.10 Cannabis abuse, uncomplicated; F14.10 Cocaine abuse, uncomplicated; F17.210 Nicotine dependence, cigarettes, uncomplicated; F41.9 Anxiety disorder, unspecified; Z79.899 Other long term (current) drug therapy
CPT/HCPCS: 36415; 36600; 71045; 80048; 80053; 80061; 80305; 82375; 82805; 83605; 83735; 83880; 84145; 84484; 85025; 93005; 93306; 94640; 99285; J0456; J0696; J1650; J1940; J2930; J3490; J7060; J7626

== ENCOUNTER 2023-07-30 22:57 | Inpatient (IN) | payer MEDICAID ==
[~2023-07-30] VITALS: Ht 172.7 cm; Wt 113.4 kg
[~2023-07-30 22:57] MED LIST changes: +ASPI-1497 PO; -COR3 PO; +FLUT1DIS3 INH; +FURO40TA5 PO; -FURO80TA87 MT; -LIDOCAINE HCL/PF 1% 2ML VIAL ONE; -LOSA25TA26 PO; +METH-773 MT
[2023-07-30] MEDS ORDERED: MORPHINE SULFATE 4 MG/ML CPJ (NOT FOR IM USE) IV STA (23:03)
[2023-07-30] MEDS ORDERED: ONDANSETRON HCL 4MG/2ML INJ IV STA (23:03)
[2023-07-30] MEDS ORDERED: MAGNESIUM/ALUMINUM HYDROXIDE/SIMETHICONE 30ML UDC PO STA (23:03)
[2023-07-30 23:26] LABS: BASOPHILS % 1.5 % (0.0-2.0); EOSINOPHILS % 2.7 % (0.0-5.0); HEMATOCRIT. 36.5 % (42.0-52.0); HEMOGLOBIN. 11.9 g/dL (14.0-18.0); LYMPHOCYTES % 16.6 % (20.0-50.0); MEAN CORPUSCULAR HGB CONC 32.6 g/dL (31.0-37.0); MEAN CORPUSCULAR VOLUME 85.9 fL (80.0-94.0); MEAN PLATELET VOLUME 9.2 fl (7.4-10.4); MONOCYTES % 12.5 % (2.0-8.0); NEUTROPHILS % 66.7 % (40.0-76.0); PLATELET 207 x1000/uL (130-400); RED BLOOD CELL COUNT 4.25 mill/uL (4.7-6.1); RED CELL DISTRIBUTION WIDTH 18.6 % (11.6-14.6)
[2023-07-30 23:34] LABS: CHLORIDE 101 mEq/L (98-107); INDEX HEMOLYSI 1 (1-3); INDEX ICTERIC 1 (1-4); INDEX LIPEMIC 1 (1-3); POTASSIUM 3.9 mEq/L (3.5-5.1); SODIUM 134 mEq/L (136-145)
[2023-07-30 23:40] LABS: INR 1.3; PROTHROMBIN TIME 13.3 sec (9.6-11.0)
[2023-07-30 23:45] LABS: ALANINE AMINOTRANSFERASE 25 IU/L (13-61); ALBUMIN 2.9 g/dL (3.4-5.0); ASPARTATE AMINOTRANSFERASE 27 IU/L (15-37); BILIRUBIN TOTAL 1.8 mg/dL (0.1-1.0); CALCIUM 8.4 mg/dL (8.5-10.1); CARBON DIOXIDE 26 mEq/L (21-32); CREATININE 1.8 mg/dL (0.6-1.3); ETHANOL BLOOD < 10 mg/dL (<10); GLUCOSE 114 mg/dL (70-105); PROTEIN TOTAL 7.7 g/dL (6.0-8.3); TROPONIN I HIGH SENSITIVITY 35 ng/L (<78); UREA NITROGEN BLOOD 40 mg/dL (7-21)
[2023-07-31] MEDS ORDERED: ONDA4TAB50 MT (01:34)
[2023-07-31] MEDS ORDERED: ACET-2708 MT (01:34)
[2023-07-31] MEDS ORDERED: POLY17PO3 MT (01:34)
[2023-07-31 03:54] VITALS: BP 135/60; PULSE 80; RESP 20; TEMP 98.2
[2023-07-31 04:00] VITALS: BP 93/66; PULSE 74; RESP 18; TEMP 97.8
[2023-07-31] MEDS ORDERED: INFLUENZA VACCINE 05/PF 0.5 ML SYRINGE IM ONE (05:30)
[2023-07-31] MEDS ORDERED: MORPHINE SULFATE 2 MG/ML CPJ (NOT FOR IM USE) IV NR (06:15)
[2023-07-31] MEDS ORDERED: HYDROCODONE/ACETAMINOPHEN 5/325MG TABLET PO PRN (06:15)
[2023-07-31] MEDS ORDERED: ONDANSETRON HCL 4MG/2ML INJ IV PRN (06:15)
[2023-07-31] MEDS ORDERED: NALOXONE HCL 0.4MG/ML VIAL IV PRN (06:30)
[2023-07-31 08:05] VITALS: BP 95/65; PULSE 66; RESP 19; TEMP 97.3
[2023-07-31] MEDS: ASPIRIN 81MG TABLET PO SCH (08:58)
[2023-07-31] MEDS: PANTOPRAZOLE 40MG DR TABLET PO SCH (08:58)
[2023-07-31] MEDS: CARVEDILOL 3.125 MG TABLET PO SCH ×2 (09:00→21:43)
[2023-07-31 11:59] VITALS: BP 100/74; PULSE 108; RESP 20; TEMP 97.2
[2023-07-31] MEDS ORDERED: LACTULOSE 20G/30ML UDC PO NR (12:15)
[2023-07-31 12:48] LABS: HEPATITIS B SURFACE ANTIGEN NEGATIVE
[2023-07-31] MEDS: FUROSEMIDE 40MG/4ML VIAL IVP SCH ×2 (13:12→18:37)
[2023-07-31 13:16] LABS: HEPATITIS C VIR.AB 0.09 INDEXVAL (0.00-0.80)
[2023-07-31 15:27] VITALS: BP 103/72; PULSE 87; RESP 19; TEMP 97.4
[2023-07-31] MEDS ORDERED: MAGNESIUM/ALUMINUM HYDROXIDE/SIMETHICONE 30ML UDC PO PRN (18:15)
[2023-07-31] MEDS: TAMSULOSIN HCL 0.4MG SR CAPSULE PO SCH (18:37)
[2023-07-31 20:00] VITALS: BP 103/79; PULSE 111; RESP 18; TEMP 98.2
[2023-07-31] MEDS ORDERED: ZOLPIDEM TARTRATE 5MG TABLET PO PRN (23:00)
[2023-08-01] VITALS: BP 98/56; PULSE 111; RESP 20; TEMP 97.8
[2023-08-01 04:00] VITALS: BP 95/72; PULSE 106; RESP 20; TEMP 98.4
[2023-08-01] MEDS: PANTOPRAZOLE 40MG DR TABLET PO SCH (07:46)
[2023-08-01 08:00] VITALS: BP 90/66; PULSE 114; RESP 20; TEMP 98.1
[2023-08-01] MEDS: CARVEDILOL 3.125 MG TABLET PO SCH (09:00)
[2023-08-01] MEDS: ASPIRIN 81MG TABLET PO SCH (09:37)
[2023-08-01] MEDS: TAMSULOSIN HCL 0.4MG SR CAPSULE PO SCH (09:37)
[2023-08-01] MEDS: FUROSEMIDE 40MG/4ML VIAL IVP SCH (09:37)
[2023-08-01 12:00] VITALS: BP 104/76; RESP 20; TEMP 98.1
[2023-08-01] MEDS ORDERED: TAMS-11 PO (13:09)
[2023-08-01] MEDS ORDERED: ALBU18HF2 IH (13:09)
[2023-08-01] MEDS ORDERED: FINA5TAB11 PO (13:09)
[2023-08-01] MEDS ORDERED: FURO40TA5 PO (13:09)
[2023-08-01] MEDS ORDERED: CARV3.1242 MT (13:10)
[2023-08-01] MEDS ORDERED: LOSA25TA26 MT (13:10)
[2023-08-01] MEDS ORDERED: IPRATROPIUM/ALBUTEROL 0.5-3(2.5)MG/3ML NEB HHN SCH (13:30)
[2023-08-01 13:44] VITALS: PULSE 97; RESP 24
[2023-08-01 14:01] VITALS: BP 104/76; PULSE 55; TEMP 98.1; O2SAT 97
== END 2023-08-01 16:42 | disposition home or self-care (01) | DRG 254 ==
LOC: ER 22:57 → 7WST 07-31 02:25
PROVIDERS: ADMIT Internal Medicine; ATTEND Internal Medicine
DX: K59.00 Constipation, unspecified (principal); I50.23 Acute on chronic systolic (congestive) heart failure; E44.0 Moderate protein-calorie malnutrition; N17.9 Acute kidney failure, unspecified; I27.20 Pulmonary hypertension, unspecified; E87.1 Hypo-osmolality and hyponatremia; I42.9 Cardiomyopathy, unspecified; R18.8 Other ascites; K52.9 Noninfective gastroenteritis and colitis, unspecified; D64.9 Anemia, unspecified; E11.22 Type 2 diabetes mellitus with diabetic chronic kidney disease; J44.9 Chronic obstructive pulmonary disease, unspecified; D72.819 Decreased white blood cell count, unspecified; I48.92 Unspecified atrial flutter; I35.0 Nonrheumatic aortic (valve) stenosis; I13.0 Hypertensive heart and chronic kidney disease with heart failure and stage 1 through stage 4 chronic kidney disease, or unspecified chronic kidney disease; F19.10 Other psychoactive substance abuse, uncomplicated; N18.9 Chronic kidney disease, unspecified; F17.210 Nicotine dependence, cigarettes, uncomplicated; I25.10 Atherosclerotic heart disease of native coronary artery without angina pectoris; N40.0 Benign prostatic hyperplasia without lower urinary tract symptoms; K76.0 Fatty (change of) liver, not elsewhere classified; Z79.899 Other long term (current) drug therapy; Z68.38 Body mass index [BMI] 38.0-38.9, adult; Z79.82 Long term (current) use of aspirin; Z71.51 Drug abuse counseling and surveillance of drug abuser
CPT/HCPCS: 36415; 74176; 80053; 80320; 83605; 84484; 85025; 86803; 87340; 90686; 93005; 94640; 99285; J1940; J2270; J2405; G0480

== ENCOUNTER 2023-09-24 08:03 | Emergency (ER) | payer MEDICAID ==
[~2023-09-24] VITALS: Ht 172.7 cm; Wt 84.8 kg
[~2023-09-24 08:03] MED LIST changes: +ACET-2708 MT; +CARV3.1242 MT; +LOSA25TA26 MT; +METO2.5T2 MT; +ONDA4TAB50 MT; +POLY17PO3 MT
[2023-09-24 08:48] VITALS: BP 108/69; PULSE 76; RESP 16; TEMP 97.9; O2SAT 96
[2023-09-24] MEDS ORDERED: TUSSL MT (13:46)
== END 2023-09-24 13:50 | disposition home or self-care (01) ==
LOC: ER 08:25
DX: R05.1 Acute cough (principal); I50.9 Heart failure, unspecified; Z20.822 Contact with and (suspected) exposure to COVID-19; J44.9 Chronic obstructive pulmonary disease, unspecified
CPT/HCPCS: 99283; 87426; C9803

== ENCOUNTER 2023-09-26 00:05 | Inpatient (IN) | payer MEDICAID ==
[2023-09-26] VITALS (12 sets, daily range): BP systolic 103–120; BP diastolic 74–94; PULSE 77–96; RESP 19–28; TEMP 97.6–98.4
[~2023-09-26] VITALS: Ht 172.7 cm; Wt 75.8 kg
[~2023-09-26 00:05] MED LIST changes: +TUSSL MT
[2023-09-26] MEDS ORDERED: ONDANSETRON HCL 4MG/2ML INJ IV ONE (00:15)
[2023-09-26] MEDS ORDERED: FUROSEMIDE 100MG/10ML VIAL IVP ONE (00:30)
[2023-09-26 00:47] LABS: BASOPHILS % 2.7 % (0.0-2.0); DIFFERENTIAL COMMENT 0; EOSINOPHILS % 1.6 % (0.0-5.0); HEMATOCRIT. 43.1 % (42.0-52.0); HEMOGLOBIN. 13.3 g/dL (14.0-18.0); LYMPHOCYTES % 13.6 % (20.0-50.0); MEAN CORPUSCULAR HEMOGLOBIN 26.9 pg (28.0-32.0); MEAN CORPUSCULAR HGB CONC 30.9 g/dL (31.0-37.0); MEAN CORPUSCULAR VOLUME 87.1 fL (80.0-94.0); MEAN PLATELET VOLUME 9.7 fl (7.4-10.4); MONOCYTES % 9.2 % (2.0-8.0); NEUTROPHILS % 72.9 % (40.0-76.0); PLATELET 205 x1000/uL (130-400); RED BLOOD CELL COUNT 4.95 mill/uL (4.7-6.1); RED CELL DISTRIBUTION WIDTH 19.5 % (11.6-14.6); WHITE BLOOD COUNT 5.9 x1000/uL (4.5-11.0)
[2023-09-26 01:03] LABS: ALANINE AMINOTRANSFERASE 17 IU/L (10-49); ALBUMIN 3.4 g/dL (3.2-4.8); ASPARTATE AMINOTRANSFERASE 35 IU/L (<34); BILIRUBIN TOTAL 2.5 mg/dL (0.1-1.0); CALCIUM 8.8 mg/dL (8.7-10.4); CARBON DIOXIDE 24 mEq/L (21-32); CHLORIDE 112 mEq/L (98-107); CREATININE 1.5 mg/dL (0.6-1.3); GLUCOSE 101 mg/dL (70-105); POTASSIUM 3.9 mEq/L (3.5-5.1); SODIUM 142 mEq/L (136-145); TROPONIN I HIGH SENSITIVITY 38 ng/L (3.0-53); UREA NITROGEN BLOOD 28 mg/dL (9-23)
[2023-09-26] MEDS ORDERED: ONDANSETRON HCL 4MG/2ML INJ IV NR (02:30)
[2023-09-26] MEDS ORDERED: FUROSEMIDE 40MG/4ML VIAL IVP ONE (02:30)
[2023-09-26 02:54] LABS: TROPONIN I HIGH SENSITIVITY 36 ng/L (3.0-53)
[2023-09-26] MEDS ORDERED: ACETAMINOPHEN 325MG TABLET PO PRN (04:00)
[2023-09-26] MEDS ORDERED: GUAIFENESIN 200MG/10ML SUGAR FREE UDC PO PRN (04:00)
[2023-09-26] MEDS ORDERED: CLONIDINE 0.1MG TABLET PO PRN (04:00)
[2023-09-26] MEDS ORDERED: DIPHENHYDRAMINE 50MG/ML VIAL IV PRN (04:00)
[2023-09-26] MEDS ORDERED: ZOLPIDEM TARTRATE 5MG TABLET PO PRN (04:00)
[2023-09-26] MEDS: AMLODIPINE 2.5MG TABLET PO SCH (09:00)
[2023-09-26] MEDS: TAMSULOSIN HCL 0.4MG SR CAPSULE PO SCH (09:34)
[2023-09-26] MEDS: FUROSEMIDE 40MG/4ML VIAL IVP SCH (09:34)
[2023-09-26] MEDS: ONDANSETRON HCL 4MG/2ML INJ IV PRN (09:34)
[2023-09-26] MEDS: METOLAZONE 2.5MG TABLET PO SCH (09:35)
[2023-09-26] MEDS: FINASTERIDE 5MG TABLET PO SCH (09:35)
[2023-09-26] MEDS: ENOXAPARIN 40MG/0.4ML SYR SUBCUT SCH (09:35)
[2023-09-26] MEDS: SODIUM CHLORIDE 0.9% INJ 3ML FLUSH IVF SCH ×3 (09:43→21:55)
[2023-09-26] MEDS ORDERED: CEFTRIAXONE 1GM PREMIX 50 ML IV SCH (13:45)
[2023-09-26] MEDS: CEFTRIAXONE 1,000 MG in DEXTROSE 5% WATER 50 ML IV SCH (15:57)
[2023-09-26] MEDS: MAGNESIUM/ALUMINUM HYDROXIDE/SIMETHICONE 30ML UDC PO PRN (15:57)
[2023-09-26] MEDS: GUAIFENESIN 600MG ER TABLET PO SCH (21:55)
[2023-09-27] VITALS (14 sets, daily range): BP systolic 107–115; BP diastolic 70–91; PULSE 79–111; RESP 16–32; TEMP 97.5–99.2
[2023-09-27] MEDS: SODIUM CHLORIDE 0.9% INJ 3ML FLUSH IVF SCH ×3 (06:08→22:00)
[2023-09-27] MEDS: METOLAZONE 2.5MG TABLET PO SCH (08:22)
[2023-09-27] MEDS: ENOXAPARIN 40MG/0.4ML SYR SUBCUT SCH (08:22)
[2023-09-27] MEDS: AMLODIPINE 2.5MG TABLET PO SCH (08:23)
[2023-09-27] MEDS: FUROSEMIDE 40MG/4ML VIAL IVP SCH (08:23)
[2023-09-27] MEDS: TAMSULOSIN HCL 0.4MG SR CAPSULE PO SCH (08:23)
[2023-09-27] MEDS: GUAIFENESIN 600MG ER TABLET PO SCH ×2 (08:23→22:01)
[2023-09-27] MEDS: FINASTERIDE 5MG TABLET PO SCH (08:33)
[2023-09-27] MEDS: CEFTRIAXONE 1,000 MG in DEXTROSE 5% WATER 50 ML IV SCH (14:05)
[2023-09-28] VITALS (17 sets, daily range): BP systolic 90–128; BP diastolic 64–99; PULSE 76–122; RESP 19–36; TEMP 97.4–98.1
[2023-09-28] MEDS: SODIUM CHLORIDE 0.9% INJ 3ML FLUSH IVF SCH ×3 (05:07→22:00)
[2023-09-28 07:24] LABS: BASOPHILS % 0.7 % (0.0-2.0); HEMATOCRIT. 39.7 % (42.0-52.0); HEMOGLOBIN. 12.6 g/dL (14.0-18.0); LYMPHOCYTES % 7.5 % (20.0-50.0); MEAN CORPUSCULAR HEMOGLOBIN 27.4 pg (28.0-32.0); MEAN CORPUSCULAR HGB CONC 31.9 g/dL (31.0-37.0); MEAN CORPUSCULAR VOLUME 85.9 fL (80.0-94.0); MEAN PLATELET VOLUME 9.4 fl (7.4-10.4); MONOCYTES % 8.7 % (2.0-8.0); NEUTROPHILS % 81.1 % (40.0-76.0); PLATELET 179 x1000/uL (130-400); RED BLOOD CELL COUNT 4.62 mill/uL (4.7-6.1); RED CELL DISTRIBUTION WIDTH 18.9 % (11.6-14.6); WHITE BLOOD COUNT 6.9 x1000/uL (4.5-11.0)
[2023-09-28 07:40] LABS: CALCIUM 8.5 mg/dL (8.7-10.4); CARBON DIOXIDE 30 mEq/L (21-32); CHLORIDE 104 mEq/L (98-107); CREATININE 1.4 mg/dL (0.6-1.3); GLUCOSE 122 mg/dL (70-105); PHOSPHORUS 2.9 mg/dL (2.5-4.9); POTASSIUM 3.3 mEq/L (3.5-5.1); SODIUM 138 mEq/L (136-145); UREA NITROGEN BLOOD 31 mg/dL (9-23)
[2023-09-28] MEDS: FUROSEMIDE 40MG/4ML VIAL IVP SCH (09:04)
[2023-09-28] MEDS: AMLODIPINE 2.5MG TABLET PO SCH (09:05)
[2023-09-28] MEDS: FINASTERIDE 5MG TABLET PO SCH (09:05)
[2023-09-28] MEDS: METOLAZONE 2.5MG TABLET PO SCH (09:05)
[2023-09-28] MEDS: GUAIFENESIN 600MG ER TABLET PO SCH ×2 (09:05→21:15)
[2023-09-28] MEDS: ENOXAPARIN 40MG/0.4ML SYR SUBCUT SCH (09:06)
[2023-09-28] MEDS: TAMSULOSIN HCL 0.4MG SR CAPSULE PO SCH (09:09)
[2023-09-28] MEDS ORDERED: POTASSIUM CHLORIDE 20MEQ TABLET SR PO SCH (11:30)
[2023-09-28] MEDS ORDERED: MAGNESIUM 2 G PREMIX 50 ML IV NR (12:30)
[2023-09-28] MEDS ORDERED: POTASSIUM CHLORIDE 20MEQ TABLET SR PO NR ×2 (16:20→16:23)
[2023-09-28] MEDS ORDERED: METOLAZONE 5MG TABLET PO NR (16:30)
[2023-09-28] MEDS: CEFTRIAXONE 1,000 MG in DEXTROSE 5% WATER 50 ML IV SCH (16:31)
[2023-09-29] VITALS (14 sets, daily range): BP systolic 87–130; BP diastolic 67–96; PULSE 79–104; RESP 19–31; TEMP 97.2–98.5
[2023-09-29] MEDS: SODIUM CHLORIDE 0.9% INJ 3ML FLUSH IVF SCH ×3 (06:00→19:52)
[2023-09-29 07:20] LABS: CALCIUM 9.2 mg/dL (8.7-10.4); CARBON DIOXIDE 25 mEq/L (21-32); CHLORIDE 100 mEq/L (98-107); CREATININE 1.5 mg/dL (0.6-1.3); GLUCOSE 84 mg/dL (70-105); PHOSPHORUS 3.2 mg/dL (2.5-4.9); POTASSIUM 3.8 mEq/L (3.5-5.1); SODIUM 136 mEq/L (136-145); UREA NITROGEN BLOOD 32 mg/dL (9-23)
[2023-09-29] MEDS: ONDANSETRON HCL 4MG/2ML INJ IV PRN (07:21)
[2023-09-29] MEDS: TAMSULOSIN HCL 0.4MG SR CAPSULE PO SCH (08:01)
[2023-09-29] MEDS: ENOXAPARIN 40MG/0.4ML SYR SUBCUT SCH (08:01)
[2023-09-29] MEDS: METOLAZONE 2.5MG TABLET PO SCH (08:01)
[2023-09-29] MEDS: GUAIFENESIN 600MG ER TABLET PO SCH ×2 (08:02→19:52)
[2023-09-29] MEDS: FINASTERIDE 5MG TABLET PO SCH (08:02)
[2023-09-29] MEDS: AMLODIPINE 2.5MG TABLET PO SCH (08:02)
[2023-09-29] MEDS: FUROSEMIDE 40MG/4ML VIAL IVP SCH (08:02)
[2023-09-29] MEDS: CEFTRIAXONE 1,000 MG in DEXTROSE 5% WATER 50 ML IV SCH (14:32)
[2023-09-29] MEDS ORDERED: BISACODYL 10MG SUPP PR NR (19:00)
[2023-09-29] MEDS: LACTULOSE 20G/30ML UDC PO SCH (19:52)
[2023-09-29] MEDS: SENNOSIDES 8.6MG TABLET PO SCH (21:59)
[2023-09-30] VITALS (15 sets, daily range): BP systolic 104–116; BP diastolic 57–95; PULSE 78–113; RESP 16–34; TEMP 97.2–97.7
[2023-09-30] MEDS: SODIUM CHLORIDE 0.9% INJ 3ML FLUSH IVF SCH ×3 (04:57→21:06)
[2023-09-30] MEDS: LACTULOSE 20G/30ML UDC PO SCH ×4 (04:57→21:04)
[2023-09-30] MEDS: FUROSEMIDE 40MG/4ML VIAL IVP SCH (08:49)
[2023-09-30] MEDS: ENOXAPARIN 40MG/0.4ML SYR SUBCUT SCH (08:50)
[2023-09-30] MEDS: GUAIFENESIN 600MG ER TABLET PO SCH ×2 (08:50→21:03)
[2023-09-30] MEDS: TAMSULOSIN HCL 0.4MG SR CAPSULE PO SCH (08:50)
[2023-09-30] MEDS: AMLODIPINE 2.5MG TABLET PO SCH (08:51)
[2023-09-30] MEDS: METOLAZONE 2.5MG TABLET PO SCH (08:51)
[2023-09-30] MEDS: FINASTERIDE 5MG TABLET PO SCH (09:17)
[2023-09-30] MEDS: MAGNESIUM/ALUMINUM HYDROXIDE/SIMETHICONE 30ML UDC PO PRN (09:28)
[2023-09-30] MEDS: ACETAMINOPHEN 325MG TABLET PO PRN (09:29)
[2023-09-30] MEDS: CEFTRIAXONE 1,000 MG in DEXTROSE 5% WATER 50 ML IV SCH (14:24)
[2023-09-30] MEDS: SENNOSIDES 8.6MG TABLET PO SCH (21:03)
[2023-10-01] VITALS (16 sets, daily range): BP systolic 93–120; BP diastolic 66–90; PULSE 76–91; RESP 16–40; TEMP 97–98
[2023-10-01] MEDS: IPRATROPIUM/ALBUTEROL 0.5-3(2.5)MG/3ML NEB HHN PRN ×3 (04:18→12:33)
[2023-10-01] MEDS: LACTULOSE 20G/30ML UDC PO SCH ×3 (05:41→21:36)
[2023-10-01] MEDS: SODIUM CHLORIDE 0.9% INJ 3ML FLUSH IVF SCH ×3 (05:41→21:31)
[2023-10-01] MEDS: FUROSEMIDE 40MG/4ML VIAL IVP SCH (08:44)
[2023-10-01] MEDS: METOLAZONE 2.5MG TABLET PO SCH (08:44)
[2023-10-01] MEDS: ENOXAPARIN 40MG/0.4ML SYR SUBCUT SCH (08:44)
[2023-10-01] MEDS: TAMSULOSIN HCL 0.4MG SR CAPSULE PO SCH (08:44)
[2023-10-01] MEDS: GUAIFENESIN 600MG ER TABLET PO SCH ×2 (08:45→21:36)
[2023-10-01] MEDS: AMLODIPINE 2.5MG TABLET PO SCH (08:45)
[2023-10-01] MEDS: FINASTERIDE 5MG TABLET PO SCH (08:45)
[2023-10-01] MEDS: SENNOSIDES 8.6MG TABLET PO SCH (21:36)
[2023-10-02] VITALS (15 sets, daily range): BP systolic 91–122; BP diastolic 62–92; PULSE 70–88; RESP 19–35; TEMP 97.6–98
[2023-10-02] MEDS: LACTULOSE 20G/30ML UDC PO SCH (06:00)
[2023-10-02] MEDS: SODIUM CHLORIDE 0.9% INJ 3ML FLUSH IVF SCH ×3 (06:17→22:00)
[2023-10-02] MEDS: AMLODIPINE 2.5MG TABLET PO SCH ×2 (09:00→09:27)
[2023-10-02] MEDS: FINASTERIDE 5MG TABLET PO SCH (09:27)
[2023-10-02] MEDS: ENOXAPARIN 40MG/0.4ML SYR SUBCUT SCH (09:27)
[2023-10-02] MEDS: METOLAZONE 2.5MG TABLET PO SCH (09:27)
[2023-10-02] MEDS: GUAIFENESIN 600MG ER TABLET PO SCH ×2 (09:27→20:52)
[2023-10-02] MEDS: TAMSULOSIN HCL 0.4MG SR CAPSULE PO SCH ×2 (09:28→09:39)
[2023-10-02] MEDS: FUROSEMIDE 40MG/4ML VIAL IVP SCH (09:59)
[2023-10-02 13:11] LABS: CALCIUM 9.1 mg/dL (8.7-10.4); CARBON DIOXIDE 29 mEq/L (21-32); CHLORIDE 93 mEq/L (98-107); CREATININE 1.4 mg/dL (0.6-1.3); GLUCOSE 111 mg/dL (70-105); SODIUM 132 mEq/L (136-145); UREA NITROGEN BLOOD 41 mg/dL (9-23)
[2023-10-02 13:45] LABS: BG BASE EXCESS 7.2 mmol/L (-2.0-2.0); BG DEOXYHEMOGLOBIN 12.4 % (0.0-5.0); BG FRACTION INSPIRED OXYGEN 21; BG HCO3 ACT 29.9 mmol/L (22.0-26.0); BG METHEMOGLOBIN 0.2 % (0.0-1.5); BG OXYGEN SATURATION 87.4 % (92.0-98.5); BG OXYHEMOGLOBIN 86.4 % (94.0-97.0); BG PCO2 35.8 mmHg (35.0-45.0); BG PO2 50.9 mmHg (75.0-100.0); BG SAMPLE SITE RIGHT RADIAL; BG TOTAL HEMOGLOBIN 13.9 g/dL (12.0-18.0); BG VENT MODE ROOM AIR
[2023-10-02] MEDS: POTASSIUM CHLORIDE 20MEQ TABLET SR PO SCH ×3 (16:55→20:52)
[2023-10-02] MEDS: SENNOSIDES 8.6MG TABLET PO SCH (20:52)
[2023-10-02] MEDS: IPRATROPIUM/ALBUTEROL 0.5-3(2.5)MG/3ML NEB HHN PRN (21:42)
[2023-10-03] VITALS (13 sets, daily range): BP systolic 98–114; BP diastolic 78–99; PULSE 76–116; RESP 13–27; TEMP 97.2–97.8; O2SAT 95
[2023-10-03] MEDS: SODIUM CHLORIDE 0.9% INJ 3ML FLUSH IVF SCH ×3 (05:13→22:13)
[2023-10-03 06:25] LABS: BASOPHILS % 1.1 % (0.0-2.0); DIFFERENTIAL COMMENT 0; EOSINOPHILS % 1.4 % (0.0-5.0); HEMOGLOBIN. 12.6 g/dL (14.0-18.0); LYMPHOCYTES % 12.2 % (20.0-50.0); MEAN CORPUSCULAR HEMOGLOBIN 27.6 pg (28.0-32.0); MEAN CORPUSCULAR HGB CONC 32.5 g/dL (31.0-37.0); MEAN PLATELET VOLUME 11.1 fl (7.4-10.4); MONOCYTES % 10.7 % (2.0-8.0); NEUTROPHILS % 74.6 % (40.0-76.0); PLATELET 211 x1000/uL (130-400); RED BLOOD CELL COUNT 4.58 mill/uL (4.7-6.1); RED CELL DISTRIBUTION WIDTH 18.1 % (11.6-14.6); WHITE BLOOD COUNT 4.3 x1000/uL (4.5-11.0)
[2023-10-03 06:45] LABS: CALCIUM 9.2 mg/dL (8.7-10.4); CARBON DIOXIDE 25 mEq/L (21-32); CHLORIDE 95 mEq/L (98-107); CREATININE 1.3 mg/dL (0.6-1.3); GLUCOSE 144 mg/dL (70-105); POTASSIUM 4.2 mEq/L (3.5-5.1); SODIUM 131 mEq/L (136-145); TROPONIN I HIGH SENSITIVITY 31 ng/L (3.0-53); UREA NITROGEN BLOOD 43 mg/dL (9-23)
[2023-10-03] MEDS: IPRATROPIUM/ALBUTEROL 0.5-3(2.5)MG/3ML NEB HHN PRN (09:17)
[2023-10-03] MEDS: TAMSULOSIN HCL 0.4MG SR CAPSULE PO SCH (11:12)
[2023-10-03] MEDS: FINASTERIDE 5MG TABLET PO SCH (11:12)
[2023-10-03] MEDS: FUROSEMIDE 40MG/4ML VIAL IVP SCH (11:12)
[2023-10-03] MEDS: GUAIFENESIN 600MG ER TABLET PO SCH ×2 (11:12→21:58)
[2023-10-03] MEDS: ENOXAPARIN 40MG/0.4ML SYR SUBCUT SCH (11:13)
[2023-10-03] MEDS: METOLAZONE 2.5MG TABLET PO SCH (11:13)
[2023-10-03] MEDS ORDERED: ENOXAPARIN 40MG/0.4ML SYR SUBCUT SCH (13:00)
[2023-10-03 16:54] LABS: INR 1.3
[2023-10-03] MEDS: SENNOSIDES 8.6MG TABLET PO SCH (21:58)
[2023-10-04] VITALS (13 sets, daily range): BP systolic 98–119; BP diastolic 63–88; PULSE 75–84; RESP 14–30; TEMP 96.4–98.2; O2SAT 96–97
[2023-10-04] MEDS: IPRATROPIUM/ALBUTEROL 0.5-3(2.5)MG/3ML NEB HHN PRN (00:30)
[2023-10-04] MEDS: BUDESONIDE 0.5MG/2ML NEB HHN SCH ×2 (00:30→20:32)
[2023-10-04] MEDS ORDERED: ENOXAPARIN 80MG/0.8ML SYR SUBCUT SCH (06:00)
[2023-10-04] MEDS: SODIUM CHLORIDE 0.9% INJ 3ML FLUSH IVF SCH ×3 (06:12→22:00)
[2023-10-04] MEDS: METOLAZONE 2.5MG TABLET PO SCH (08:33)
[2023-10-04] MEDS: AMLODIPINE 2.5MG TABLET PO SCH (08:33)
[2023-10-04] MEDS: GUAIFENESIN 600MG ER TABLET PO SCH ×2 (08:33→21:00)
[2023-10-04] MEDS: FUROSEMIDE 40MG/4ML VIAL IVP SCH (08:34)
[2023-10-04] MEDS: TAMSULOSIN HCL 0.4MG SR CAPSULE PO SCH (08:34)
[2023-10-04] MEDS: FINASTERIDE 5MG TABLET PO SCH (08:34)
[2023-10-04] MEDS: APIXABAN 5 MG TABLET PO SCH (17:25)
[2023-10-04] MEDS: SENNOSIDES 8.6MG TABLET PO SCH (21:00)
[2023-10-05] MEDS: SODIUM CHLORIDE 0.9% INJ 3ML FLUSH IVF SCH ×3 (05:31→20:56)
[2023-10-05 06:00] VITALS: BP 109/68; PULSE 87; RESP 19; TEMP 97.5
[2023-10-05 07:30] LABS: BASOPHILS % 0.9 % (0.0-2.0); EOSINOPHILS % 2.6 % (0.0-5.0); HEMATOCRIT. 41.4 % (42.0-52.0); HEMOGLOBIN. 13.5 g/dL (14.0-18.0); LYMPHOCYTES % 12.5 % (20.0-50.0); MEAN CORPUSCULAR HEMOGLOBIN 27.4 pg (28.0-32.0); MEAN CORPUSCULAR HGB CONC 32.7 g/dL (31.0-37.0); MEAN CORPUSCULAR VOLUME 83.6 fL (80.0-94.0); MEAN PLATELET VOLUME 9.8 fl (7.4-10.4); PLATELET 213 x1000/uL (130-400); RED BLOOD CELL COUNT 4.95 mill/uL (4.7-6.1); RED CELL DISTRIBUTION WIDTH 18.4 % (11.6-14.6); WHITE BLOOD COUNT 4.5 x1000/uL (4.5-11.0)
[2023-10-05 08:58] LABS: CALCIUM 9.3 mg/dL (8.7-10.4); CARBON DIOXIDE 30 mEq/L (21-32); CHLORIDE 94 mEq/L (98-107); CREATININE 1.4 mg/dL (0.6-1.3); GLUCOSE 85 mg/dL (70-105); POTASSIUM 3.1 mEq/L (3.5-5.1); SODIUM 134 mEq/L (136-145); UREA NITROGEN BLOOD 37 mg/dL (9-23)
[2023-10-05] MEDS: FUROSEMIDE 40MG/4ML VIAL IVP SCH (09:00)
[2023-10-05] MEDS: APIXABAN 5 MG TABLET PO SCH ×2 (10:31→17:11)
[2023-10-05] MEDS: GUAIFENESIN 600MG ER TABLET PO SCH ×2 (10:33→20:51)
[2023-10-05] MEDS: FINASTERIDE 5MG TABLET PO SCH (10:39)
[2023-10-05] MEDS: METOLAZONE 2.5MG TABLET PO SCH (10:39)
[2023-10-05] MEDS: AMLODIPINE 2.5MG TABLET PO SCH (10:39)
[2023-10-05] MEDS: BUDESONIDE 0.5MG/2ML NEB HHN SCH (11:20)
[2023-10-05 11:22] VITALS: PULSE 77; RESP 20; O2SAT 96
[2023-10-05] MEDS: IPRATROPIUM/ALBUTEROL 0.5-3(2.5)MG/3ML NEB HHN PRN (15:57)
[2023-10-05 15:58] VITALS: PULSE 75; RESP 20; O2SAT 90
[2023-10-05 16:00] VITALS: BP 144/84; PULSE 78; RESP 20; TEMP 97.8
[2023-10-05] MEDS ORDERED: POTASSIUM CHLORIDE 20MEQ TABLET SR PO NR (19:40)
[2023-10-05 20:00] VITALS: BP 96/64; PULSE 80; RESP 19; TEMP 98.6
[2023-10-05] MEDS ORDERED: ALBU6.7H15 INH (20:18)
[2023-10-05] MEDS: SENNOSIDES 8.6MG TABLET PO SCH (20:53)
[2023-10-05] MEDS ORDERED: AMLO10TA80 PO (21:57)
[2023-10-06] VITALS (8 sets, daily range): BP systolic 103–110; BP diastolic 71–84; PULSE 73–78; RESP 18–22; TEMP 97.1–98.4; O2SAT 96
[2023-10-06] MEDS: ACETAMINOPHEN 325MG TABLET PO PRN (04:13)
[2023-10-06] MEDS: SODIUM CHLORIDE 0.9% INJ 3ML FLUSH IVF SCH ×3 (05:38→20:36)
[2023-10-06] MEDS: BUDESONIDE 0.5MG/2ML NEB HHN SCH ×3 (08:00→21:43)
[2023-10-06] MEDS: AMLODIPINE 2.5MG TABLET PO SCH (09:00)
[2023-10-06] MEDS: SPIRONOLACTONE 25MG TABLET PO SCH (09:00)
[2023-10-06] MEDS: POTASSIUM CHLORIDE 20MEQ TABLET SR PO SCH (09:00)
[2023-10-06] MEDS: TAMSULOSIN HCL 0.4MG SR CAPSULE PO SCH (09:00)
[2023-10-06] MEDS: APIXABAN 5 MG TABLET PO SCH ×2 (09:07→17:25)
[2023-10-06] MEDS: METOLAZONE 2.5MG TABLET PO SCH (09:07)
[2023-10-06] MEDS: GUAIFENESIN 600MG ER TABLET PO SCH ×2 (09:08→20:35)
[2023-10-06] MEDS: FINASTERIDE 5MG TABLET PO SCH (09:08)
[2023-10-06] MEDS: FUROSEMIDE 40MG/4ML VIAL IVP SCH (09:08)
[2023-10-06 16:42] LABS: BASOPHILS % 1.5 % (0.0-2.0); EOSINOPHILS % 2.8 % (0.0-5.0); HEMATOCRIT. 40.9 % (42.0-52.0); HEMOGLOBIN. 12.9 g/dL (14.0-18.0); LYMPHOCYTES % 12.6 % (20.0-50.0); MEAN CORPUSCULAR HGB CONC 31.5 g/dL (31.0-37.0); MEAN CORPUSCULAR VOLUME 85.7 fL (80.0-94.0); MEAN PLATELET VOLUME 9.9 fl (7.4-10.4); MONOCYTES % 12.5 % (2.0-8.0); NEUTROPHILS % 70.6 % (40.0-76.0); PLATELET 228 x1000/uL (130-400); RED BLOOD CELL COUNT 4.77 mill/uL (4.7-6.1); RED CELL DISTRIBUTION WIDTH 18.4 % (11.6-14.6)
[2023-10-06 17:03] LABS: CALCIUM 9.1 mg/dL (8.7-10.4); CARBON DIOXIDE 31 mEq/L (21-32); CHLORIDE 95 mEq/L (98-107); CREATININE 1.4 mg/dL (0.6-1.3); GLUCOSE 58 mg/dL (70-105); POTASSIUM 3.4 mEq/L (3.5-5.1); SODIUM 134 mEq/L (136-145); UREA NITROGEN BLOOD 36 mg/dL (9-23)
[2023-10-06] MEDS: SENNOSIDES 8.6MG TABLET PO SCH (20:35)
[2023-10-06] MEDS: IPRATROPIUM/ALBUTEROL 0.5-3(2.5)MG/3ML NEB HHN PRN (21:42)
[2023-10-07] VITALS (8 sets, daily range): BP systolic 101–113; BP diastolic 70–80; PULSE 68–78; RESP 20–22; TEMP 96.8–98; O2SAT 97
[2023-10-07] MEDS: IPRATROPIUM/ALBUTEROL 0.5-3(2.5)MG/3ML NEB HHN PRN ×2 (02:00→07:58)
[2023-10-07] MEDS: SODIUM CHLORIDE 0.9% INJ 3ML FLUSH IVF SCH ×3 (06:14→20:54)
[2023-10-07 06:50] LABS: CALCIUM 8.8 mg/dL (8.7-10.4); CARBON DIOXIDE 26 mEq/L (21-32); CHLORIDE 97 mEq/L (98-107); CREATININE 1.3 mg/dL (0.6-1.3); GLUCOSE 124 mg/dL (70-105); POTASSIUM 3.3 mEq/L (3.5-5.1); SODIUM 133 mEq/L (136-145); UREA NITROGEN BLOOD 38 mg/dL (9-23)
[2023-10-07 07:32] LABS: BASOPHILS % 1.1 % (0.0-2.0); EOSINOPHILS % 2.3 % (0.0-5.0); HEMATOCRIT. 39.1 % (42.0-52.0); HEMOGLOBIN. 12.8 g/dL (14.0-18.0); LYMPHOCYTES % 13.6 % (20.0-50.0); MEAN CORPUSCULAR HEMOGLOBIN 27.4 pg (28.0-32.0); MEAN CORPUSCULAR HGB CONC 32.8 g/dL (31.0-37.0); MEAN CORPUSCULAR VOLUME 83.7 fL (80.0-94.0); MEAN PLATELET VOLUME 9.9 fl (7.4-10.4); MONOCYTES % 11.1 % (2.0-8.0); NEUTROPHILS % 71.9 % (40.0-76.0); PLATELET 210 x1000/uL (130-400); RED BLOOD CELL COUNT 4.67 mill/uL (4.7-6.1); RED CELL DISTRIBUTION WIDTH 18.7 % (11.6-14.6); WHITE BLOOD COUNT 3.9 x1000/uL (4.5-11.0)
[2023-10-07] MEDS: GUAIFENESIN 600MG ER TABLET PO SCH ×2 (08:30→20:53)
[2023-10-07] MEDS: POTASSIUM CHLORIDE 20MEQ TABLET SR PO SCH (08:30)
[2023-10-07] MEDS: METOLAZONE 2.5MG TABLET PO SCH (08:31)
[2023-10-07] MEDS: SPIRONOLACTONE 25MG TABLET PO SCH (08:31)
[2023-10-07] MEDS: AMLODIPINE 2.5MG TABLET PO SCH (08:31)
[2023-10-07] MEDS: FINASTERIDE 5MG TABLET PO SCH (08:32)
[2023-10-07] MEDS: APIXABAN 5 MG TABLET PO SCH ×2 (08:32→16:51)
[2023-10-07] MEDS: TAMSULOSIN HCL 0.4MG SR CAPSULE PO SCH (08:32)
[2023-10-07] MEDS: FUROSEMIDE 40MG/4ML VIAL IVP SCH (09:38)
[2023-10-07] MEDS: SENNOSIDES 8.6MG TABLET PO SCH (20:53)
[2023-10-08] VITALS (7 sets, daily range): BP systolic 101–127; BP diastolic 68–83; PULSE 76–96; RESP 18–22; TEMP 97.6–98.1; O2SAT 98
[2023-10-08] MEDS: IPRATROPIUM/ALBUTEROL 0.5-3(2.5)MG/3ML NEB HHN PRN ×2 (02:40→08:25)
[2023-10-08] MEDS: ACETAMINOPHEN 325MG TABLET PO PRN (04:54)
[2023-10-08] MEDS: FUROSEMIDE 40MG/4ML VIAL IVP SCH (08:18)
[2023-10-08] MEDS: POTASSIUM CHLORIDE 20MEQ TABLET SR PO SCH (08:18)
[2023-10-08] MEDS: FINASTERIDE 5MG TABLET PO SCH (08:19)
[2023-10-08] MEDS: APIXABAN 5 MG TABLET PO SCH ×2 (08:19→17:03)
[2023-10-08] MEDS: SODIUM CHLORIDE 0.9% INJ 3ML FLUSH IVF SCH ×2 (08:22→14:19)
[2023-10-08] MEDS: SPIRONOLACTONE 25MG TABLET PO SCH (08:22)
[2023-10-08] MEDS: TAMSULOSIN HCL 0.4MG SR CAPSULE PO SCH (08:23)
[2023-10-08] MEDS: METOLAZONE 2.5MG TABLET PO SCH (08:23)
[2023-10-08] MEDS: GUAIFENESIN 600MG ER TABLET PO SCH (08:27)
[2023-10-08] MEDS: AMLODIPINE 2.5MG TABLET PO SCH (08:31)
[2023-10-08] MEDS ORDERED: APIX5TAB PO (15:06)
[2023-10-08] MEDS ORDERED: POTA-204 PO (15:06)
[2023-10-08] MEDS ORDERED: POTASSIUM CHLORIDE 20MEQ TABLET SR PO NR (15:15)
== END 2023-10-08 17:25 | disposition home or self-care (01) | DRG 139 ==
LOC: ER 00:31 → 5EST 02:00 → EDBEDREQSVC 02:27 → EDBEDREQ 02:27 → EDBEDREQTM 02:27 → 8WST 10-05 14:22
PROVIDERS: ADMIT Internal Medicine; ATTEND Internal Medicine
PROC: 5A09357 Assistance with Respiratory Ventilation, Less than 24 Consecutive Hours, Continuous Positive Airway Pressure (ICD-10-PCS; principal; 2023-09-26)
PROC: 5A09357 Assistance with Respiratory Ventilation, Less than 24 Consecutive Hours, Continuous Positive Airway Pressure (ICD-10-PCS; 2023-09-27)
PROC: 5A09357 Assistance with Respiratory Ventilation, Less than 24 Consecutive Hours, Continuous Positive Airway Pressure (ICD-10-PCS; 2023-09-28)
PROC: 5A09457 Assistance with Respiratory Ventilation, 24-96 Consecutive Hours, Continuous Positive Airway Pressure (ICD-10-PCS; 2023-09-29)
PROC: 5A09357 Assistance with Respiratory Ventilation, Less than 24 Consecutive Hours, Continuous Positive Airway Pressure (ICD-10-PCS; 2023-10-03)
DX: J18.9 Pneumonia, unspecified organism (principal); J96.01 Acute respiratory failure with hypoxia; I50.23 Acute on chronic systolic (congestive) heart failure; I13.0 Hypertensive heart and chronic kidney disease with heart failure and stage 1 through stage 4 chronic kidney disease, or unspecified chronic kidney disease; I95.9 Hypotension, unspecified; I27.21 Secondary pulmonary arterial hypertension; J44.0 Chronic obstructive pulmonary disease with (acute) lower respiratory infection; I35.0 Nonrheumatic aortic (valve) stenosis; N18.9 Chronic kidney disease, unspecified; E83.42 Hypomagnesemia; E87.6 Hypokalemia; K56.41 Fecal impaction; I48.92 Unspecified atrial flutter; I42.9 Cardiomyopathy, unspecified; E11.22 Type 2 diabetes mellitus with diabetic chronic kidney disease; I07.1 Rheumatic tricuspid insufficiency; I49.3 Ventricular premature depolarization; J44.1 Chronic obstructive pulmonary disease with (acute) exacerbation; F19.10 Other psychoactive substance abuse, uncomplicated; Z79.899 Other long term (current) drug therapy; Z79.01 Long term (current) use of anticoagulants; Z87.891 Personal history of nicotine dependence; Z79.4 Long term (current) use of insulin
CPT/HCPCS: 36415; 36600; 71045; 74018; 76604; 80048; 80053; 82375; 82805; 83735; 83880; 84100; 84484; 85025; 87070; 93005; 93880; 93970; 94640; 94660; 97162; 99291; J0696; J1650; J1940; J2405; J3475; J7060; J7626